=== PATIENT | female | born 1950 | race Caucasian/White ===

== ENCOUNTER → 2016-11-14 | Outpatient (CLI) | payer MEDICARE ==
--- NOTE | 2016-11-14 10:07 | REP ---
Chest two views HISTORY: COPD Comparison: 11/11/2014 Linear densities are present in the right lung apex consistent with scarring. The left lung is clear. The heart is normal in size. The pulmonary vasculature is normal in appearance. The bony structure is intact. IMPRESSION: Right upper lobe scarring. Signed by Terry Herrera MD 11/14/2016 09:58 A
== END ==
LOC: M SMT 09:43
PROVIDERS: ATTEND Internal Medicine Pulmonary Disease
DX: J44.9 Chronic obstructive pulmonary disease, unspecified (principal)

== ENCOUNTER → 2018-04-03 | Outpatient (CLI) | payer MEDICARE | LOC: M SMT 09:35 | DX: R91.8 Other nonspecific abnormal finding of lung field (principal) | CPT/HCPCS: 71046 ==

== ENCOUNTER → 2018-12-30 | Outpatient (CLI) | payer MEDICARE ==
--- NOTE | 2018-12-30 09:58 | REP ---
CT CHEST WITHOUT CONTRAST: HISTORY: Abnormal lung field findings. Findings raising suspicion for metastatic disease in the right lung base seen on CT abdomen and pelvis, [facility] dated October 25, 2018. Comparison is made with outside prior CT images from January 08, [address] FINDINGS: There is a small new right pleural effusion. Today's CT imaging confirms the presence of a multiple noncalcified pulmonary nodules. Many of these are pleural based posteriorly and along the fissures. There is pleural-based nodularity at the base on the diaphragmatic surface of the right lower lobe. These nodular opacities range in size up to 18 mm. There are scattered mediastinal lymph nodes visible. No definite mediastinal lymphadenopathy is seen. Some epicardial lymph nodes are seen. The largest of these is in the retro xyphoid soft tissues measuring 12 mm x 9 mm. No left-sided lung nodule is appreciated. There are emphysematous changes in the apices bilaterally with mild biapical pleuroparenchymal fibrosis. This pleuroparenchymal fibrosis is more prominent on the right than the left and is essentially unchanged from the 2012 study. No bony destructive lesion is seen. No adrenal lesion is seen. There are two low density areas in the liver which may be cysts. The visualized upper abdominal structures are otherwise unremarkable. IMPRESSION: Small right pleural effusion. Multiple predominately pleural-based pulmonary nodular densities in the right chest. Small right pleural effusion. Findings are suspicious for metastatic disease, mesothelioma would be in the differential as well. Electronically Signed by Evan Sanders MD 12/30/2018 11:36 A
== END ==
LOC: M RAD 07:19
PROVIDERS: ATTEND Internal Medicine Pulmonary Disease
DX: R91.8 Other nonspecific abnormal finding of lung field (principal); J90 Pleural effusion, not elsewhere classified

== ENCOUNTER → 2019-01-01 | Outpatient (CLI) | payer MEDICARE ==
[2019-01-01 14:56] LABS: INR 0.92; PARTIAL THROMBOPLASTIN TIME 27.5 SECONDS (25.4-37.6); PROTHROMBIN TIME 12.4 SECONDS (12.1-14.4)
[2019-01-03 12:30] LABS: CA 125 63.3 U/ML (<30.2); CA19-9 TUMOR MARKER,CARBOHYDRA 12.7 U/ML (<35.0)
== END ==
LOC: M SMT 11:52
PROVIDERS: ATTEND Internal Medicine Pulmonary Disease
DX: R91.8 Other nonspecific abnormal finding of lung field (principal)

== ENCOUNTER → 2019-01-10 | Outpatient (CLI) | payer MEDICARE ==
[~2019-01-10] MED LIST: ACET-683 PO; ALBU83IN PO; ATOR1TAB19 PO; INCR1INH PO; IRBE150T12 PO; IRON15CH PO; LIDOCAINE 1% MDV 20ML VIAL As Ordered ONE; OMEP-221 PO; PRED5TA PO; RALO1TAB PO; VENTAER PO
[2019-01-10 13:07] LABS: PH BODY FLUID 7.599 UNITS (NOT ESTABLISHED); SOURCE, BODY FLUID pH PLEURAL
[2019-01-10 13:33] LABS: APPEARANCE, BODY FLUID CLOUDY (CLEAR); PLEURAL FL COLOR YELLOW (COLORLESS); SOURCE, BODY FLUID PLEURAL
[2019-01-10 13:41] LABS: AMYLASE, BODY FLUID 41 U/L (NOT ESTABLISHED); LDH, BODY FLUID 374 U/L (NOT ESTABLISHED); SOURCE, BODY FLUID AMYLASE PLEURAL; SOURCE, BODY FLUID GLUCOSE PLEURAL; SOURCE, BODY FLUID LDH PLEURAL; SOURCE, BODY FLUID TOT PROTEIN PLEURAL; TOTAL PROTEIN, BODY FLUID 4.3 G/DL (NOT ESTABLISHED)
--- NOTE | 2019-01-10 16:33 | REP ---
CHEST, TWO VIEWS: Two views of the chest are performed. COMPARISON: CT 12/30/2018 as well as other prior exams. There is no pneumothorax, status post right thoracentesis and lung biopsy. Multiple nodular opacities are again seen throughout the right lung. Left lung appears clear. Heart is not enlarged. IMPRESSION: No pneumothorax, status post right thoracentesis and lung biopsy. Electronically Signed by Parish Hawthorne MD 01/11/2019 02:56 P
--- NOTE | 2019-01-11 15:00 | REP ---
CT-guided right lower lobe lung biopsy The procedure was performed under the direct supervision of Dr. hawthorne. The patient has a history of multiple predominately pleural-based pulmonary nodular densities in the right chest seen on a previous CT scan dated 12/30/2018. The risks and benefits of the procedure were explained to the patient and informed consent was obtained. A nodule in the right lower lobe was localized using CT guidance. The skin was prepped and draped in a sterile fashion. 1% lidocaine was used as a local anesthetic. Using CT guidance a 19/20 gauge coaxial needle biopsy system was inserted and advanced into the nodule. Five core biopsy samples were obtained and sent to lab. The patient tolerated the procedure well and there were no immediate complications. After the appropriate amount of monitored convalescence the patient was discharged from the department. Reviewed by KAYLEY De Luna 01/10/2019 04:35 P Electronically Signed by Parish Hawthorne MD 01/11/2019 02:50 P
--- NOTE | 2019-01-11 15:02 | REP ---
ULTRASOUND-GUIDED RIGHT THORACENTESIS The procedure was performed under the direct supervision of Dr. hawthorne. The risks and benefits of the procedure were explained to patient and informed consent was obtained. The right pleural effusion was localized using ultrasound guidance. The skin was prepped and draped in a sterile fashion. 1% lidocaine was used as a local anesthetic. Using ultrasound guidance an 8-Bhutanese multi side-hole catheter was inserted using trocar technique. 215 ml of yellow fluid was withdrawn and sent to lab for analysis. The patient tolerated the procedure well and there were no immediate complications. After the appropriate amount of monitored convalescence the patient was discharged from the department. Reviewed by KAYLEY De Luna 01/10/2019 04:43 P Electronically Signed by Parish Hawthorne MD 01/11/2019 02:51 P
== END ==
LOC: M RADPRO 10:52
PROVIDERS: ATTEND Internal Medicine Pulmonary Disease
DX: C34.91 Malignant neoplasm of unspecified part of right bronchus or lung (principal); J90 Pleural effusion, not elsewhere classified; R91.8 Other nonspecific abnormal finding of lung field

== ENCOUNTER → 2019-01-29 | Outpatient (CLI) | payer MEDICARE ==
[~2019-01-29] MED LIST changes: +FOLI1TAB11 PO; -LIDOCAINE 1% MDV 20ML VIAL As Ordered ONE; +ONDA8TAB8 PO; +PROC10TA4 PO
--- NOTE | 2019-01-30 13:53 | REP ---
REASON FOR EXAM: Lung carcinoma. No prior PET/CTs for comparison. Previous chest CT, 12/30/2018, was reviewed. After the intravenous administration of 9.2 mCi of FDG-18, triplane whole body PET/CT was performed from the skull base to the midthigh. There are numerable foci of abnormal hypermetabolism seen scattered throughout the right lung and along the mediastinal pleural reflection on the right. These are too numerous to count or individually assess and too widespread having SUV values ranging from 2.7 to 3.8. There is a right pleural effusion. There is no woodrow mediastinal or hilar adenopathy. There are no other abnormal hypermetabolic foci seen in the neck, chest, abdomen, or pelvis. IMPRESSION: Abnormal hypermetabolic activity throughout the right hemithorax including both lung parenchyma and particularly the pleural reflections as described above consistent with metastatic disease, possibly mesothelioma. Electronically Signed by Hi Newberry DO 01/30/2019 03:27 P
== END ==
LOC: M PLARAD 12:21
PROVIDERS: ATTEND Internal Medicine Pulmonary Disease
DX: R91.8 Other nonspecific abnormal finding of lung field (principal); C34.31 Malignant neoplasm of lower lobe, right bronchus or lung
CPT/HCPCS: 78815; A9552

== ENCOUNTER → 2019-02-14 | Outpatient (CLI) | payer MEDICARE ==
--- NOTE | 2019-02-14 10:41 | REP ---
MR BRAIN WITHOUT AND WITH CONTRAST: HISTORY: Lung carcinoma. CONTRAST: ProHance 10 mL. Areas of increased signal intensity on T2 weighted images are present in the periventricular and subcortical white matter. This represents small vessel ischemic disease. There is no intraparenchymal hemorrhage, infarct, mass or midline shift. There is no abnormal enhancement. The ventricular system and cortical sulci are dilated consistent with minimal volume loss. There is no extracerebral collection. The sinuses are clear. IMPRESSION: 1. Small vessel ischemic disease. 2. Minimal volume loss. Electronically Signed by Terry Herrera MD 02/14/2019 10:42 A
== END ==
LOC: M PLARAD 07:38
PROVIDERS: ATTEND Internal Medicine Medical Oncology
DX: I67.82 Cerebral ischemia (principal); C34.90 Malignant neoplasm of unspecified part of unspecified bronchus or lung

== ENCOUNTER 2019-03-01 09:59 | Inpatient (IN) | payer MEDICARE ==
[2019-03-01] VITALS (11 sets, daily range): BP systolic 94–148; BP diastolic 53–68
[~2019-03-01] VITALS: Ht 157.5 cm; Wt 51.2 kg
[~2019-03-01 09:59] MED LIST changes: +ALBU83IN INH; -ALBU83IN PO; +INCR1INH INH; -INCR1INH PO; +PANTOPRAZOLE 40MG TAB (PROTONIX) PO SCH; +TRIA1CR80 TOP; +VENTAER INH; -VENTAER PO
[2019-03-01] MEDS ORDERED: IPRATROPIUM 0.5MG/ALBUTEROL 2.5MG INH SOL UD 3ML (DUONEB)(J7620) NEB ONE (11:00)
[2019-03-01] MEDS ORDERED: ACETAMINOPHEN TAB 650MG DOSE (2X325MG) PO ONE (11:00)
[2019-03-01 11:18] LABS: HEMATOCRIT 32.7 % (36.0-47.0); HEMOGLOBIN 11.1 g/dl (12.0-15.5); MEAN CORPUSCULAR HEMOGLOBIN 28.5 pg (27.0-33.0); MEAN CORPUSCULAR HGB CONC 33.9 g/dl (32.0-36.5); MEAN CORPUSCULAR VOLUME 83.8 fl (80.0-96.0); PLATELET COUNT, AUTOMATED 400 10^3/uL (150-450); WHITE BLOOD COUNT 18.3 10^3/uL (4.0-10.0)
--- NOTE | 2019-03-01 11:36 | REP ---
PA and lateral chest: Comparison is 01/10/2019. There is a comparison chest CT of 12/30/2018. The patient has known multiple right lung nodules. There is a large right pleural effusion, significantly increased in size from both prior studies. Left lung is clear. Cardiac size is normal. There is fullness in the left hilus, increased from 01/10/2019, possibly a mediastinal mass/adenopathy. Impression: Large right pleural effusion as a distinct interval change. Fullness in the left hilus as an interval change. Known multiple right lung nodules. Electronically Signed by Parish Andujar MD 03/01/2019 11:28 A
[2019-03-01 11:51] LABS: ALBUMIN 2.7 GM/DL (3.2-5.2); ALT/SGPT 49 U/L (12-78); BILIRUBIN,DIRECT 0.2 MG/DL (0.0-0.2); BILIRUBIN,TOTAL 0.2 MG/DL (0.2-1.0); BLOOD UREA NITROGEN 8 MG/DL (7-18); CALCIUM LEVEL 8.2 MG/DL (8.8-10.2); CARBON DIOXIDE LEVEL 25 MEQ/L (21-32); CHLORIDE LEVEL 94 MEQ/L (98-107); CK-MB VALUE MASS 1.4 NG/ML (<3.6); CPK CREATINE PHOSPHOKINASE 59 U/L (26-192); GLOMERULAR FILTRATION RATE > 60.0 (>45); GLUCOSE, FASTING 105 MG/DL (70-100); MB/CK RELATIVE INDEX 2.37 (< OR =4); NT-PRO BNP 178 PG/ML (<125); SODIUM LEVEL 128 MEQ/L (136-145); THYROID STIMULATING HORMONE 0.208 uIU/ML (0.358-3.740); TOTAL PROTEIN 5.8 GM/DL (6.4-8.2)
[2019-03-01 11:54] LABS: EOSINOPHILS 10 % (0-5); LYMPHOCYTES 6 % (16-52); METAMYELOCYTES 2 % (0-0); MONOCYTES 6 % (0-8); NEUTROPHILS 67 % (35-75); PLATELET ESTIMATE INCREASED (NORMAL)
[2019-03-01 11:55] LABS: TOXIC GRANULATION 1+
[2019-03-01] MEDS ORDERED: ISOVUE-370 76% 100ML VIAL (Q9967) As Ordered ONE (12:52)
[2019-03-01] MEDS ORDERED: cefTRIAXone SOD 1 GM in D5W MINI-BAG PLUS 50 ML IV ONE (13:30)
[2019-03-01] MEDS ORDERED: AZITHROMYCIN INJ 500 MG, VIAL MATE ADAPTER 1 EACH in D5W 250 ML IV ONE (14:00)
[2019-03-01] MEDS ORDERED: ONDA8TAB8 PO (14:16)
[2019-03-01] MEDS ORDERED: BANO2CRE TOP (14:16)
[2019-03-01] MEDS ORDERED: TRIA1CR80 TOP (14:16)
[2019-03-01] MEDS ORDERED: PROC10TA4 PO (14:16)
[2019-03-01] MEDS ORDERED: [UNRECOGNIZED DRUG - CODE] IV (14:23)
[2019-03-01] MEDS ORDERED: CYAN1000VL IM (14:23)
[2019-03-01] MEDS ORDERED: PALO0.252 IV (14:23)
[2019-03-01] MEDS ORDERED: KEYT1INJ IV (14:23)
[2019-03-01] MEDS ORDERED: EMEN150S IV (14:23)
[2019-03-01] MEDS ORDERED: IRON65TA2 PO (14:23)
[2019-03-01] MEDS ORDERED: DEXA10VL IV (14:23)
[2019-03-01] MEDS ORDERED: PEG6SYR SC (14:23)
[2019-03-01] MEDS ORDERED: CARB450I12 IV (14:23)
[2019-03-01] MEDS ORDERED: FOLI1TAB11 PO (14:23)
[2019-03-01] MEDS ORDERED: ACETAMINOPHEN TAB 650MG DOSE (2X325MG) PO PRN (14:30)
[2019-03-01] MEDS ORDERED: PERCOCET 5MG/325MG TAB PO PRN (14:30)
[2019-03-01] MEDS ORDERED: VANCOMYCIN HCL 1,000 MG, VIAL MATE ADAPTER 1 EACH in D5W 250 ML IV ONE ×2 (14:30→16:00)
[2019-03-01] MEDS ORDERED: HEPARIN SOD (PORCINE) 5000 UNITS/ML VIAL SC SCH (14:30)
[2019-03-01] MEDS ORDERED: NORCO, ANEXSIA 5/325MG TABLET (HYDROcodone/ACETAMINOPHEN) PO PRN (14:30)
[2019-03-01] MEDS ORDERED: BISACODYL 10 MG SUPP PR PRN (14:30)
[2019-03-01] MEDS ORDERED: LEVALBUTEROL 1.25 MG/0.5 ML CONCENTRATE NEB NEB PRN (14:30)
[2019-03-01] MEDS ORDERED: KCL 20MEQ IN D5/NS 1000ML 1,000 ML IV SCH (15:00)
[2019-03-01 15:04] LABS: LDH LACTATE DEHYDROGENASE 291 U/L (84-246)
--- NOTE | 2019-03-01 15:06 | PHACANCOPD ---
PHARMACY VANCOMYCIN DOSING Pt Demographics Demographics Patient Age:68 , Weight:51.000 , Gender: female Adjusted Body Weight Date: 03/01/19, Adjusted Body Weight: Kg Events Past 24 Hours Events Past 24 Hours: YES: Fever, Elevation in WBC, Pending Diagnostics Vancomycin Vancomycin indication: PNEUMONIA Vancomycin Target Ranges: 15-20 mcg/ml Vancomycin Load Y/N: Yes Load Dose Date Time Vancomycin Load Dose: 1g Date: 03/01/19 Time:1600 Vancomycin Dose Date: 03/01/19. Current Vancomycin Dose: [750mg IV Q12H] Intermittent Dosing?: No Labs Labs Item Value Date Time White Blood Count 18.3 10^3/uL H 03/01/19 1053 Blood Urea Nitrogen 8 MG/DL 03/01/19 1053 Creatinine 0.50 MG/DL L 03/01/19 1053 Lactic Acid Level 1.0 MMOL/L 03/01/19 1040 Micro Microbiology 03/01/19 Blood Culture, Received Pending 03/01/19 Blood Culture, Received Pending Creatinine Clearance Date:03/01/19. Est Creatinine Clearance: [~50ml/min]. Pending Labs Vancomycin trough level scheduled to be drawn 03/02/19 @1500 - prior to the 3rd dose Assessment and Plan Maintaining Current Dose?: Yes Reason for dose change: No Dose Change Pharmacist Note Pharmacist Note Date: 03/01/19. Pharmacist note: Day #1 empiric vancomycin therapy initiated with a 1g loading dose, followed by a maintenance regimen of 750mg IV Q12H for the treatment of pneumonia - aiming for a goal trough of 15-20mcg/ml. The patient has a PMH of lung cancer and COPD, and started chemotherapy last week. WBC is elevated and the patient is febrile on admit. Blood culture and sputum cultures are currently pending. Procalcitonin level is currently pending. No hx of MRSA or vanco use here at [facility]. Full H&P is not available at this time. A vancomycin trough level has been scheduled to be drawn tomorrow, 03/02/19, at 1500 - prior to the 3rd dose to ensure adequate monitoring. We will continue to monitor and make dose adjustments if needed. OSMAR PERDUE PHARMACY Mar 01, 2019 15:05
[2019-03-01] MEDS ORDERED: FLUMAZENIL 0.5 MG/5 ML VIAL As Ordered ONE (15:21)
[2019-03-01] MEDS ORDERED: MIDAZOLAM INJ 2 MG/2 ML VIAL (J2250) As Ordered ONE (15:22)
[2019-03-01] MEDS ORDERED: LIDOCAINE 1% MDV 20ML VIAL As Ordered ONE (15:24)
[2019-03-01] MEDS ORDERED: PROCHLORPERAZINE 5 MG TAB (S0183) PO PRN (15:30)
[2019-03-01] MEDS ORDERED: ALBUTEROL 90 MCG/ACT 8GM HFA INHALER INH PRN (15:30)
[2019-03-01] MEDS ORDERED: ALBUTEROL SULFATE 2.5 MG/0.5 ML INH NEB SOLN INH PRN (15:30)
[2019-03-01] MEDS ORDERED: TRIAMCINOLONE ACET 0.1% CREAM 80 GM TOP PRN (15:30)
[2019-03-01] MEDS: ONDANSETRON 4MG/2ML VIAL (J2405) IV PRN ×2 (15:38→20:46)
[2019-03-01] MEDS ORDERED: LIDOCAINE 1% MDV 20ML VIAL SC ONE (16:00)
[2019-03-01] MEDS ORDERED: MIDAZOLAM INJ 2 MG/2 ML VIAL (J2250) IV ONE ×2 (16:00)
--- NOTE | 2019-03-01 16:08 | HPEPDOC ---
General Date of Admission Mar 01, 2019 at 14:18 Date of Service: Mar 01, 2019 Primary Care Physician: Basia Kelly Attending Physician: ALVINO PENA DO Chief Complaint The patient is a 68-year-old female admitted with a reason for visit of Pleural Effusion. Source: Patient, Family, Old records Exam Limitations: No limitations Associated Symptoms: Cough, Loss of appetite, Nausea, Shortness of breath History of Present Illness Ms. Arias is a 68-year-old female who presents to [facility] Emergency Department with worsening shortness of breath. Patient is accompanied by her daughter and granddaughter. Patient states that for the past few days she has been developing worsening shortness of breath to the point that she is unable to walk from her bedroom to the bathroom without becoming exquisitely short of breath. She would use her inhalers at home, but without much relief in the shortness of breath. She states that she could not even walk 4 steps without becoming short of breath. She does not wear oxygen at home. She is coughing, but only produces very minimal clear sputum. There is no blood in her sputum. Patient reports increasing the number of pillows she sleeps on from 2 to 3 and last evening did find that she was gasping for air. She denies any lower extremity swelling. She is nauseated, but is not vomiting or having abdominal pain. She is not vomiting up blood. She has no appetite, but does not recall having difficulty swallowing or getting things stuck in her throat or chest. Over the last week she thinks she has lost about 5-6 pounds. She does not recall feeling feverish at home and admits to not checking her temperature. Admits to alternating chills and night sweats. Patient did attend an awards ceremony on Sunday and has a graduation celebration on Sunday that she would like to attend, if possible. Patient does admit to a diffuse pruritic rash for which she was prescribed a topical steroids and OTC Benadryl. However, she has only used the topical steroid once as she was told to use it sparingly and did not feel like it helped much. Emergency Department evaluation reveals an initial temperature of 101. Hematological evaluation reveals a neutrophilic leukocytosis of 18.3 with 9 bands. Chemistry reveals a low sodium of 128 and an unremarkable NT-pro-BNP of 178. Blood cultures are pending. Imaging included a chest x-ray and CT chest angiogram. A large right sided pleural effusion as well as a small PE were noted. 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 Patient is currently being treated with Carboplatin/Pemetrexed/Pembrolizumab which started on 02/18/2019. She was started on topical Triamcinolone 0.1% twice daily, OTC Benadryl, and Tylenol or Aleve PM for pain control. Hospitalist service was consulted and patient was admitted for further medical management. Home Medications Scheduled Atorvastatin Calcium (Atorvastatin Calcium) 10 Mg Tablet, 10 MG PO DAILY, (Reported) Carboplatin (Carboplatin) 10 Mg/1 Ml Vial, 450 MG IV Q2WK, (Reported) Cyanocobalamin (Cyanocobalamin Injection) 1,000 Mcg/1 Ml Vial, 1,000 MCG IM ASDIRECTED, (Reported) EVERY 3RD CYCLE OF CHEMO Dexamethasone (Dexamethasone 10 mg/ml Vial) 10 Mg/1 Ml Vial, 10 MG IV Q2WK, (Reported) Ferrous Sulfate (Iron) 325 Mg Tablet, 325 MG PO DAILY, (Reported) Folic Acid (Folic Acid) 1 Mg Tablet, 1 MG PO DAILY, (Reported) Fosaprepitant (Emend) 150 Mg Vial, 150 MG IV Q2WK, (Reported) Irbesartan (Irbesartan) 150 Mg Tablet, 75 MG PO BID, (Reported) Omeprazole (Omeprazole) 40 Mg Capsule.dr, 40 MG PO DAILY, (Reported) Palonosetron HCl (Palonosetron HCl) 0.25 Mg/5 Ml Vial, 0.25 MG IV Q2WK, (Reported) Pegfilgastrim (Neulasta) 6 Mg/0.6 Ml Syringe, 6 MG SC ASDIRECTED, (Reported) APPLY ON DAY ONE OF CHEMO Pembrolizumab (Keytruda) 100 Mg/4 Ml Vial, 200 MG IV Q2WK, (Reported) Pemetrexed Disodium (Alimta) 500 Mg Vial, 750 MG IV Q2WK, (Reported) Prednisone (Prednisone) 5 Mg Tablet, 2.5 MG PO Q3RD, (Reported) Raloxifene HCl (Raloxifene HCl) 60 Mg Tablet, 60 MG PO DAILY, (Reported) Triamcinolone Acet (Triamcinolone Acetonide 0.1% Crm) 80 Gm Cream..g., 1 APLCT TOP BID for rash Umeclidinium Elba (Incruse Ellipta) 62.5 Mcg Blst.w.dev, 1 PUFF INH DAILY, (Reported) Scheduled PRN Acetaminophen (Acetaminophen) 500 Mg Tablet, 1,000 MG PO Q6H PRN for PAIN, (Reported) Albuterol Sulf (Albuterol Sulfate) 2.5 Mg/3 Ml Vial.neb, 1 NEB INH QID PRN for SHORTNESS OF BREATH, (Reported) Albuterol Sulfate (Ventolin Hfa) 18 Gm Hfa.aer.ad, 2 PUFFS INH QID PRN for SHORTNESS OF BREATH, (Reported) Diphenhydramine HCl/Zinc Acet (Banophen Anti-Itch 2% Cream) 28 Gm Cream..g., 1 APLCT TOP BID PRN for RASH, (Reported) APPLY TO AREAS OF RASH Ondansetron (Ondansetron Odt) 8 Mg Tab.rapdis, 8 MG PO Q6H PRN for NAUSEA, (Reported) Prochlorperazine Maleate (Prochlorperazine Maleate) 10 Mg Tablet, 10 MG PO Q6H PRN for NAUSEA OR VOMITING, (Reported) Triamcinolone Acet (Triamcinolone Acetonide 0.1% Crm) 80 Gm Cream..g., 1 APLCT TOP BID PRN for RASH, (Reported) APPLY TO AREAS OF RASH Allergies Coded Allergies: albuterol (Verified Adverse Reaction, Mild, nausea, 03/01/19) Past Medical History Medical History 1. Stage IV A, [id number], poorly differentiated adenocarcinoma of the lung 2. History of tobacco dependence 3. DLP 4. HTN 5. GERD 6. COPD Surgical History 1. Colonoscopy 2. EGD 3. CT-guided right lower lobe lung biopsy 4. Ultrasound-guided right thoracentesis Family History Father: , 70s, stroke Mother: , 72-3, COPD, leukemia Siblings - Sisters: x2, alive, 70s, healthy - Brother: x1, , 57, lung cancer Social History * Smoker: former Smoker (45.5 pack year history, quit last year) Alcohol: Denies Drugs: denies Pets in the home: Dog(s) (Libby x2, Nika and Romeo) Lives independently and does not use assist devices. for 16 years. Ma rried for 32 years. of a massive heart attack. Two adult children - one daughter and one son - both alive and healthy. 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 No alcohol or illicit drug use. Used to smoke. Started at age 20 and quit last year. Smoked about 1.5 packs per day. A-FIB/CHADSVASC A-FIB History Current/History of A-Fib/PAF?: No Review of Systems Constitutional: Reports: Chills, Night Sweats; Denies: Fever, Weakness Eyes: Denies: Vision change ENT: Denies: Head Aches, Dysphagia, Sinus Congestion, Post Nasal Drip, Sore Throat, Epistaxis Skin: Reports: Rash (diffuse, pruritic); Denies: Lesions Pulmonary: Reports: Dyspnea (with minimal exertion), Cough (minimal with clear sputum production); Denies: Pleuritic Chest Pain Cardiovascular: Reports: Paroxysmal Noc. Dyspnea; Denies: Chest Pain, Palpitations, Orthopnea, Edema, Lt Headedness Gastrointestinal: Reports: Nausea, Constipation; Denies: Vomiting, Abdominal Pain, Diarrhea, Melena, Hematochezia Genitourinary: Denies: Dysuria, Frequency, Incontinence, Hematuria, Retention Hematologic: Denies: Bruising Musculoskeletal: Denies: Neck Pain, Back Pain, Joint Pain, Muscle Pain Neurological: Denies: Weakness, Numbness Physical Examination General Exam: Positive: Alert, Cooperative, No Acute Distress Eye Exam: Positive: PERRLA, Conjunctiva & lids normal, EOMI; Negative: Sclera icteric, Ptosis ENT Exam: Positive: Atraumatic, Mucous membr. moist/pink, Pharynx Normal, Tongue Midline, Nares Patent; Negative: Pharyngeal Edema Neck Exam: Positive: Supple, +2 carotid pulse wo bruit; Negative: JVD, thyromegaly, Lymphadenopathy Chest Exam: Positive: Diminished, Other (clear to auscultation in the upper lobes bilaterally, diminished breath sounds in the right lower lobe with E-to-A egophony); Negative: Clear to auscultation, Normal air movement Heart Exam: Positive: Rate Normal, Tachycardic, Regular Rhythm, Normal S1, Normal S2; Negative: Irregular Rhythm, Gallops, Murmurs, Rubs Telemetry: Positive: Tachycardia Abdomen Exam: Positive: BS Hypoactive, Soft; Negative: Tenderness, Hepatospenomegaly, Mass, Hernia Extremity Exam: Negative: Clubbing, Cyanosis, Edema, Normal pulses (tachycardic), Tenderness, Swelling Skin Exam: Positive: Rash (maculopapular, confluent extending along back, upper chest, and arms) Neuro Exam: Positive: Normal Speech, Cranial Nerves 3-12 NL Psych Exam: Positive: Oriented x 3 Other physical findings 1. Chest x-ray, 2 view, PA and lateral - Large right pleural effusion as a distinct interval change. Fullness in the left hilus as an interval change. Known multiple right lung nodules. 2. CT chest angiogram Vital Signs Vital Signs Date Time Temp Pulse Resp B/P (MAP) Pulse Ox O2 Delivery O2 Flow Rate FiO2 03/01/19 13:45 114 118/62 (80) 94 03/01/19 10:56 99.6 03/01/19 09:59 28 Room Air Height (in): 62 Weight (kg): 51 BMI (kg): 20.6 Laboratory Data Labs 24H Laboratory Tests 2 03/01/19 10:40: Lactic Acid Level 1.0 03/01/19 10:53: Immature Granulocyte % (Auto) , Nucleated Red Blood Cells % (auto) 0.0, Neutrophils 67, Band Neutrophils 9, Lymphocytes (Manual) 6L, Monocytes (Manual) 6, Eosinophils (Manual) 10H, Metamyelocytes 2H, Toxic Granulation 1+, Platelet Estimate INCREASED, Anion Gap 9, Glomerular Filtration Rate > 60.0, Calcium Level 8.2L, Aspartate Amino Transf (AST/SGOT) 37, Alanine Aminotransferase (ALT/SGPT) 49, Alkaline Phosphatase 89, Total Bilirubin 0.2, Direct Bilirubin 0.2, Total Creatine Kinase 59, Creatine Kinase MB 1.4, Creatine Kinase MB Relative Index 2.37, Troponin I 0.10, PT-Rtx-E-Type Natriuretic Peptide 178H, Total Protein 5.8L, Albumin 2.7L, Albumin/Globulin Ratio 0.87L, Thyroid Stimulating Hormone (TSH) 0.208L CBC/BMP Laboratory Tests 03/01/19 10:53 Red Blood Count 3.90 L, Mean Corpuscular Volume 83.8, Mean Corpuscular Hemoglobin 28.5, Mean Corpuscular Hemoglobin Concent 33.9, Red Cell Distribution Width 13.1 Microbiology Microbiology 03/01/19 Blood Culture, Received Pending 03/01/19 Blood Culture, Received Pending Plan / VTE VTE Prophylaxis Ordered?: Yes (knee-high sequential compression) Plan Plan 1. Sepsis 2/2 post-obstructive pneumonia 2/2 stage IV A, H9HfS3h, poorly differentiated adenocarcinoma of the lung Fever 101, WBC 18.3, tachycardic 114 Started Cefepime and Vancomycin (pharmacy consult) Tylenol as needed for fever Ordered procalcitonin, blood cultures, MRSA screen, sputum culture and gram stain Monitor VS and labs 2. Right sided pleural effusion likely 2/2 aforementioned Thoracic surgery consulted Pleural fluid analysis ordered Chest tube ordered ABG at 15:24 --> unremarkable CXRs, ABGs, IS, oxygen therapy orders, PEP ordered Ketorolac and Percocet as needed for pain Telemetry ordered KCl 20mEq in D5/NS @ 75 mLs/hr NPO 3. Pulmonary embolism with subclavian thrombus Carotid ultrasound ordered Holding off on anticoagulation until thoracic surgery evaluates patient Consider either therapeutic Lovenox with transition to Eliquis and just Eliquis for treatment 4. Neutrophilic leukocytosis with bandemia 2/2 aforementioned Antibiotic therapy with IV Cefepime and Vancomycin Monitor labs daily 5. Fever 2/2 aforementioned Tylenol as needed Monitor VS as standard of care 6. Eosinophilia 2/2 chemotherapy resulting in cutaneous rash C/W topical Triamcinolone, topical Benadryl 7. Chemotherapeutic hyponatremia Monitor 8. Chemotherapeutic nausea C/W Prochlorperazine, Ondansetron 9. COPD C/W Albuterol inhaler, Xopenex nebulizer 10. GERD C/W Omeprazole 11. Constipation C/W Colace, MoM, Dulcolax 12. DLP C/W Atorvastatin Disposition Admit: PCU Anticipated hospitalization: 2 nights Attending: Dr. Pena Plan Nurse: Thoracic surgery, Dr. Alan Diet: Make NPO Activity: Continue Current (OOB encourage ambulation) Medications: Start Antibiotics (Vancomycin and Cefepime) Respiratory: Other Respiratory Diagnostics: Check Labs, Repeat Labs in AM, Obtain Cultures (blood, MRSA screen), Ultrasound (carotid) Anticipated Discharge: Home Advanced Directives: MOLST Form is available, Do Not Resuscitate (DNR), Do Not Intubate (DNI) BRISA RAMON DO Mar 01, 2019 14:52
--- NOTE | 2019-03-01 16:25 | REP ---
CT of the chest with IV contrast, CT pulmonary angiography protocol: Comparison is 12/30/2018. There are no emboli in the pulmonary trunk or central pulmonary arteries. I suspect there is a single tiny embolus to a left upper lobe pulmonary artery. No other pulmonary emboli are identified. There is a large right pleural effusion has significantly increased in size. There is compression atelectasis of the left right adjacent to t the large pleural effusion. There are multiple pleural-based lung nodules on the right as previously. Many of these nodules are obscured on the current study by the right pleural effusion and right lung atelectasis. Left lung is clear. There is right hilar lymph node enlargement. There are right paraspinal pleural-based lung nodules extending into the posterior mediastinum. There are right paramediastinal lung nodules extending into the mid and anterior mediastinum. Intravenous injection is into the left upper extremity. There is reflux of the venous injection into the left jugular vein above the innominate vein. The refluxed contrast hugs the wall of the left jugular vein and is not seen centrally within the lumen of this vein. This may merely represent vascular flow of blood flow phenomenon centrally within this vein, however, the possibility of left jugular venous thrombus is also raised by this finding. Correlate clinically and consider ultrasound for further evaluation. Impression: Tiny embolus within a single left upper lobe pulmonary artery. Question of a left jugular venous thrombus as discussed in the report. Correlate clinically and consider ultrasound. Known multiple right hemithorax pleural-based lung nodules. Large right pleural effusion, significantly increased in size. Compression atelectasis of the left lung from the large effusion. Electronically Signed by Parish Andujar MD 03/01/2019 04:16 P
[2019-03-01] MEDS: KETOROLAC 30 MG/ML VIAL (J1885) IV SCH ×2 (17:25→20:46)
[2019-03-01 17:46] LABS: PH BODY FLUID 7.633 UNITS (NOT ESTABLISHED); SOURCE, BODY FLUID pH PLEURAL
[2019-03-01] MEDS: MOM 30ML SUSPENSION UDC PO SCH (18:03)
[2019-03-01] MEDS: OMEPRAZOLE 20 MG CAP PO SCH (18:03)
[2019-03-01] MEDS: FOLIC ACID 1 MG TAB PO SCH (18:04)
[2019-03-01] MEDS: FERROUS SULFATE 325MG TAB PO SCH (18:04)
[2019-03-01] MEDS: ATORVASTATIN 10 MG TAB PO SCH (18:04)
[2019-03-01] MEDS: diphenhydrAMINE CREAM 30GM TOP PRN ×2 (18:05→20:49)
[2019-03-01 18:08] LABS: AMYLASE, BODY FLUID 27 U/L (NOT ESTABLISHED); CHOLESTEROL, BODY FLUID 73 MG/DL (NOT ESTABLISHED); LDH, BODY FLUID 275 U/L (NOT ESTABLISHED); SOURCE, BODY FLUID AMYLASE PLEURAL; SOURCE, BODY FLUID CHOL PLEURAL; SOURCE, BODY FLUID GLUCOSE PLEURAL; SOURCE, BODY FLUID LDH PLEURAL; SOURCE, BODY FLUID TRIG PLEURAL; TRIGLYCERIDE, BODY FLUID 35 MG/DL (NOT ESTABLISHED)
[2019-03-01 18:14] LABS: SOURCE, BODY FLUID ALBUMIN PLEURAL
[2019-03-01 18:15] LABS: SOURCE, BODY FLUID TOT PROTEIN PLEURAL; TOTAL PROTEIN, BODY FLUID 4.1 G/DL (NOT ESTABLISHED)
[2019-03-01 18:25] LABS: APPEARANCE, BODY FLUID HAZY (CLEAR); PLEURAL FL COLOR YELLOW (COLORLESS); SOURCE, BODY FLUID PLEURAL
--- NOTE | 2019-03-01 19:14 | CR ---
DATE OF CONSULTATION: 03/01/2019 The patient is seen at the request of the hospitalist service for shortness of breath and now increased pleural effusion. 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 The patient's most recent story starts approximately 3 or 4 days ago when she started to experience increasing shortness of breath. The shortness of breath progressed such that she could not even get out of bed to go to the bathroom without being extremely short of breath. Last night she could not sleep and slept with her head propped up on pillows. She did not seek medical attention until this morning as her breathing was so bad last night and that she had put down her shortness of breath to chemotherapy side effect. She underwent her first infusion on 02/18/2019 consisting of carboplatin, pemetrexed and pembrolizumab. She developed a skin dermatitis, which was thought to be secondary to the chemotherapy and was put on topical steroids. Accompanying the shortness of breath is now cough without any sputum production. Over the last few days, she has felt both hot and cold and has broken out in sweats. She has not brought up sputum nor has she had any hemoptysis. She has a sharp pain in her right side but it is not exacerbated by deep breathing. The sharp pain does come and go and it has been like that for about a year, it is not new. She has no dysphagia and does not choke on her food. PAST MEDICAL HISTORY: 1. Hypertension. 2. Gastroesophageal reflux disease (GERD). 3. Chronic obstructive pulmonary disease (COPD). PAST SURGICAL HISTORY: 1. Tonsillectomy at the age of 16. MEDICATIONS: At home: - atorvastatin 10 mg daily - dexamethasone 10 mg IV every 2 weeks - ferrous sulfate 325 mg daily - folic acid 1 mg daily - Emend 150 mg every 2 weeks - irbesartan 75 mg twice a day - omeprazole 40 mg daily - Neulasta 6 mg on her first day of chemotherapy on 02/18/2019 - Keytruda 200 mg IV every 2 weeks - pemetrexed 750 mg IV every 2 weeks - prednisone 2.5 mg every 3 days - Relaxazone 60 mg daily - triamcinolone acetate cream twice a day for rash - Incruse Ellipta 62.5 mg one puff daily - carboplatin 450 mg IV every 2 weeks ALLERGIES: She states that she has a bad taste in her mouth from albuterol with mild nausea. FAMILY HISTORY: Father at 70 of a stroke. Mother at 72 of COPD and leukemia. Brother at 57 of lung cancer. HABITS: Smoked one to one and a half packs per day, quit last year. Denies alcohol. Denies illicit drugs. EXPOSURES: She has two dogs that she helps take care of during the day for her daughter, two Libbys. TRAVEL HISTORY: None to the critical access hospital or [facility], although she did go on a cruise in the [place] 10 years ago and stopped at all the ports. REVIEW OF SYSTEMS: CONSTITUTIONAL: See history of present illness. EYES: Without diplopia. Without amaurosis fugax. Wears glasses. Without prior jaundice. NOSE: Without epistaxis. MOUTH: Has her own teeth. PULMONARY: See history of present illness. CARDIAC: Without palpitations, tachycardia or prior myocardial infarction. GASTROINTESTINAL: Without nausea and some vomiting after chemotherapy. Without melena, hematochezia, diarrhea, constipation, hematemesis or abdominal pain GENITOURINARY: Without dysuria or hematuria or prior history of renal stones. HEMATOLOGIC: Without prolonged bleeding times. ENDOCRINE: Without diabetes. Without thyroid disease. PSYCHIATRIC: Without pathological anxieties, depressions, or psychoses. NEUROLOGIC: Without paresthesias, paralyses or prior seizures. PHYSICAL EXAMINATION: Well developed, chronically ill looking, white female in moderate distress with shortness of breath. VITAL SIGNS: Temperature 98.7, heart rate 109 in a sinus rhythm, respiratory rate of 26 without the use of accessory muscles. She is 96% saturated on 2 liters nasal cannula and her blood pressure is 120/59. EYES: Pupils are equal, round and reactive to light. Extraocular muscles intact. Sclerae nonicteric. HEAD: Head is normocephalic. Without swelling of her face or eyelids. NOSE: Without deformity. MOUTH: Shows mucous membranes to be pink and moist. Lips without lesions. There is no thrush. She does look to have an ecchymosis or submucosal hemorrhage in the palpate. NECK: Supple. There is no jugular venous distention (JVD). No subcutaneous emphysema. Trachea is midline. There is no thyromegaly or lymphadenopathy. LUNGS: Markedly decreased breath sounds in the right lower hemithorax with a dull percussion note in the right lower hemithorax. After the chest tube was placed, she has very coarse rhonchi on inspiration and expiration on the right side. She has normal vesicular sounds without wheezes, rhonchi or rales. Percussion note is full to the diaphragm on the left. CARDIAC: Without murmurs, clicks, gallops or rubs. I cannot feel her point of maximum impulse (PMI). S1, S2 normal. ABDOMEN: Soft, nontender. Bowel sounds positive. There is no hepatomegaly. No costovertebral angle tenderness. EXTREMITIES: Show no pretibial edema. No calf tenderness. No differential swelling of the upper extremities. SKIN: Warm, dry and perfused without cyanosis or mottling, including that of the nail beds and knees. NEUROLOGIC: Shows II through XII intact with gross motor and gross sensation intact. Gait is not tested. PSYCHIATRIC: Shows her to be awake and alert, oriented times three with appropriate mood and affect and conversational. INVESTIGATIONS: Her white count is 18.3 with a hemoglobin and hematocrit of 11.1 and 32.7 and a platelet count of 400. The white count may be secondary to Neulasta. Differential shows 67% neutrophils, 9% bands, 66% lymphocytes, 6% monocytes, and 10 eosinophils. There are 2 metamyelocytes and 1+ toxic granulations. Her electrolytes show a sodium of 128 with a BUN and creatinine of 8 and 0.50 with a glucose of 105 and a calcium of 8.2. AST and ALT are normal. Albumin is 2.7 with a corresponding calcium of 8.2. Her TSH is 0.2. Her lactic acid is 1.0. Her chest x-ray shows a large opacity consistent with a pleural effusion on the left side. This can be seen one-third to half way up the chest on the lateral film. Her chest CT confirms the pleural effusion. She has multiple nodules throughout her lungs, predominantly on the right. She also has what looks to be pleural implants of the upper portion of the hemithorax. I cannot differentiate pleural studs where her pleural effusion is. She has compression atelectasis of her lower lobe, which may also be partial consolidation. CT is done under angiographic protocol and she has what looks to be a small left upper lobe pulmonary thrombus. Most significantly however, on the coronal reconstructions, she has in the internal carotid vein on the left side. There looks to be refilling at the proximal portion of the internal jugular vein and I think that this really does represent thrombus. Her liver looks to be free of disease. Her left adrenal is of normal configuration, as is her right adrenal. IMPRESSION: 1. Right sided pleural effusion, possible recurrent malignant or parapneumonic. 2. Possible left lower lobe pneumonia. 3. Stage IV lung cancer, metastatic to the pleural fluid. 4. Hypertension. 5. Hyponatremia. 6. Pulmonary embolism. 7. Left internal carotid thrombus. 8. Possible sepsis with leukocytosis with immature forms and toxic granulations. 9. Eosinophilia with subcutaneous rash. 10. Chronic obstructive pulmonary disease (COPD). 11. Gastroesophageal reflux disease (GERD). PLAN AND DISCUSSION: I am really on the fence with regard to whether to place a chest tube and drain her or to place a PleurX catheter. She has fever and leukocytosis with toxic granulations. The leukocytosis could be secondary to her Neulasta, toxic granulations are suspect. She does not have strong symptoms of pneumonia or the parapneumonic effusion. Nonetheless, is probable best to err on the side of conservatism and drain her initially and observe her and if and when the effusion returns, place a PleurX catheter. Specimens will be sent for all the requisite studies of cytologies, bacteriologies, cell counts and chemistries. Her hyponatremia is probably secondary to her carcinoma. She is at high risk for thromboembolism, which she certainly has in her left upper lobe pulmonary artery. After chest tube, I would go ahead and anticoagulate her. I have no objection to using Eliquis.
[2019-03-01] MEDS: CEFEPIME HCL 2 GM in D5W MINI-BAG PLUS 50 ML IV SCH (20:46)
[2019-03-01] MEDS: IRBESARTAN 150 MG TAB PO SCH (20:46)
[2019-03-01] MEDS: DOCUSATE SODIUM 100 MG CAP PO SCH (20:47)
[2019-03-01] MEDS: APIXABAN 5 MG TAB (ELIQUIS) PO SCH (20:47)
[2019-03-01] MEDS: PERCOCET 5MG/325MG TAB PO PRN (20:49)
[2019-03-01] MEDS: TRIAMCINOLONE ACET 0.1% CREAM 80 GM TOP SCH (20:50)
[2019-03-01] MEDS: LEVALBUTEROL 1.25 MG/0.5 ML CONCENTRATE NEB NEB SCH (21:03)
[2019-03-02] VITALS (7 sets, daily range): BP systolic 91–122; BP diastolic 51–67
[2019-03-02] MEDS: LEVALBUTEROL 1.25 MG/0.5 ML CONCENTRATE NEB NEB SCH ×4 (01:59→20:26)
[2019-03-02] MEDS: PERCOCET 5MG/325MG TAB PO PRN ×2 (02:05→05:43)
[2019-03-02] MEDS: KETOROLAC 30 MG/ML VIAL (J1885) IV SCH ×2 (02:05→10:04)
[2019-03-02] MEDS: ONDANSETRON 4MG/2ML VIAL (J2405) IV PRN ×4 (02:05→13:32)
[2019-03-02] MEDS: CEFEPIME HCL 2 GM in D5W MINI-BAG PLUS 50 ML IV SCH ×3 (03:29→20:09)
[2019-03-02] MEDS: VANCOMYCIN HCL 750 MG, VIAL MATE ADAPTER 1 EACH in D5W 250 ML IV SCH ×2 (04:01→16:02)
[2019-03-02 05:50] LABS: HEMATOCRIT 31.8 % (36.0-47.0); HEMOGLOBIN 10.5 g/dl (12.0-15.5); MEAN CORPUSCULAR HEMOGLOBIN 28.1 pg (27.0-33.0); PLATELET COUNT, AUTOMATED 374 10^3/uL (150-450); RED BLOOD COUNT 3.74 10^6/uL (4.00-5.40); WHITE BLOOD COUNT 17.5 10^3/uL (4.0-10.0)
[2019-03-02 05:56] LABS: ABG BASE EXCESS -2.1 (-2.0-2.0); ABG HCO3 22.8 MEQ/L (22.0-26.0); ABG O2 SATURATION 94.2 % (95.0-99.0); ABG PARTIAL PRESSURE CO2 39.4 mmHg (35.0-45.0); ABG PARTIAL PRESSURE O2 69.9 mmHg (75.0-100.0); ABG STANDARD HCO3 22.7 MEQ/L (22.0-26.0)
[2019-03-02 06:18] LABS: BLOOD UREA NITROGEN 14 MG/DL (7-18); CALCIUM LEVEL 7.6 MG/DL (8.8-10.2); CARBON DIOXIDE LEVEL 25 MEQ/L (21-32); CHLORIDE LEVEL 95 MEQ/L (98-107); CREATININE FOR GFR 0.95 MG/DL (0.55-1.30); GLOMERULAR FILTRATION RATE > 60.0 (>45); GLUCOSE, FASTING 153 MG/DL (70-100); POTASSIUM SERUM 3.7 MEQ/L (3.5-5.1); SODIUM LEVEL 128 MEQ/L (136-145)
[2019-03-02 06:22] LABS: ANISOCYTOSIS 2+; EOSINOPHILS 9 % (0-5); LYMPHOCYTES 6 % (16-52); MONOCYTES 4 % (0-8); NEUTROPHILS 81 % (35-75); PLATELET ESTIMATE NORMAL (NORMAL)
--- NOTE | 2019-03-02 06:56 | ECGEPIP ---
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
[2019-03-02] MEDS: TIOTROPIUM INHALER/CAPSULE (SPIRIVA) INH SCH (07:21)
--- NOTE | 2019-03-02 07:39 | REP ---
The portable chest, 05:01 p.m., single AP view with the patient upright, post right chest tube: Comparison is from 10:42 a.m. earlier this same date. There is a right thoracotomy tube as an interval change. The right pleural effusion has significantly decreased with only a tiny residual persisting. There is no pneumothorax. The the patient has known multiple right lung nodules. Left lung is clear. Left hilar fullness is again identified. However, on the chest CT dated 03/01/2019. No left hilar mass or adenopathy are identified. Impression: Significant reduction in the right pleural effusion post right thoracotomy tube. No pneumothorax. Electronically Signed by Parish Andujar MD 03/02/2019 07:31 A
--- NOTE | 2019-03-02 07:51 | REP ---
Bilateral carotid artery duplex ultrasound: Peak flow velocity analysis: RIGHT LEFT ICA Peak flow velocity cm/sec 110.3 184.1 ICA Diastolic flow velocity cm/sec 31.8 35.0 ICA/CCA Ratio 1.06 1.79 ECA Peak flow velocity cm/sec 57.7 60.7 CCA Peak flow velocity cm/sec 114 102.9 On the right. There is mild atheromatous plaque extending from the bulb into the proximal internal carotid artery and proximal external carotid artery. On the left. There is moderate atheromatous plaque in the distal common carotid artery and in the proximal left internal carotid artery. The peak flow velocities indicate: Less than 50% stenosis in the right carotid artery. 50 - 69% stenosis in the left internal carotid artery. There is antegrade flow in the vertebral arteries bilaterally. Electronically Signed by Parish Andujar MD 03/02/2019 07:42 A
--- NOTE | 2019-03-02 08:37 | REP ---
PA and lateral chest: Comparison is 03/01/2019. The right thoracotomy tube is unchanged. There is no pneumothorax. The large right pleural effusion has significantly decreased with only a tiny residual effacing the right costophrenic angle. The patient has known multiple right lung nodules. However, I suspect there is superimposed atelectasis inferiorly in the right lung on the study today. This is likely secondary to the previous effusion. Left lung is clear. Cardiac size normal. The alcira, mediastinum, skeletal structures are unchanged for Impression: Right thoracotomy tube unchanged. Right pleural effusion as described. Probable atelectasis inferiorly in the right lung. Known multiple right lung nodules. Electronically Signed by Parish Andujar MD 03/02/2019 08:27 A
[2019-03-02] MEDS: IRBESARTAN 150 MG TAB PO SCH ×2 (09:00→20:10)
[2019-03-02] MEDS ORDERED: PREVNAR 13 VACCINE SYRINGE (CPT CODE:90670) IM ONE (09:00)
[2019-03-02] MEDS: TRIAMCINOLONE ACET 0.1% CREAM 80 GM TOP SCH ×2 (09:00→20:09)
[2019-03-02] MEDS: APIXABAN 5 MG TAB (ELIQUIS) PO SCH ×2 (10:05→20:10)
[2019-03-02] MEDS: DOCUSATE SODIUM 100 MG CAP PO SCH ×2 (10:05→20:10)
[2019-03-02] MEDS: METOCLOPRAMIDE INJ 10MG/2ML VIAL (J2765) IV SCH ×3 (11:51→23:05)
[2019-03-02] MEDS: diphenhydrAMINE CREAM 30GM TOP PRN (12:01)
--- NOTE | 2019-03-02 12:10 | IPN ---
DATE: 03/02/2019 Ms. Arias is feeling a bit nauseated today. She is breathing better, however. She is still on oxygen. The venous study was not a venous study but rather a carotid artery study and I have re-ordered a venous Doppler study of the upper extremities and the internal jugular vein. Her vital signs show a T-max of 97.1 with a heart rate that ranges between 110 and 93 and is sinus rhythm, respiratory rate of 18 to 24 without the use of accessory muscles, who is 94 % saturated on 1 liter nasal cannula, and whose blood pressure is ranging between 105/67 to 91/55. Her intake and output the past 24 hours has been recorded as 850 in and 58 mL out. No urine output was recorded yesterday; however, she has had 350 mL in the last 11 hours. She had 58 mL out from the chest tube yesterday after draining 1400 mL and 20 mL in the last 11 hours. There is no air leak. She weighs 50.5 kilos today compared to 51 kilos yesterday. On physical examination today, her right lung has markedly improved. There are some scattered coarse rhonchi, most of which clear with coughing. This was just opposed to yesterday after placing the chest tube where she had marked rhonchi with a succussion splash. Percussion note is full to the diaphragm. Cardiac exam is without murmurs, clicks, gallops or rubs. I cannot feel her point of maximal impulse (PMI). S1 and S2 are normal. Abdomen is soft and nontender. Bowel sounds are positive but hypoactive. There is no hepatomegaly. No costovertebral angle (CVA) tenderness. Extremities show no pretibial edema. No calf tenderness. No differential swelling of the upper extremities. Skin is warm, dry and perfused without cyanosis or mottling including that of the nail beds and the knees. Neck is supple. There is no jugular venous distention. No subcutaneous emphysema. Trachea is midline. Mouth shows her mucous membranes to be pink and moist. Lips and commissures are without lesions. There is no thrush. Eyes show her pupils to be equal, reactive. Extraocular motors are intact. Sclera nonicteric. Neuro shows II through XII intact, along with gross motor and gross sensation intact. Gait is not tested. Psychiatric shows her to be awake and alert, oriented times three with appropriate mood, affect and conversational. Her white count today is 17.5 with a hemoglobin and hematocrit of 10.5 and 31.8, essentially unchanged from yesterday. Platelet count is 374 and stable. Differential shows 81% neutrophils, 6% lymphocytes, 4% monocytes. There are no immature forms today and there are no toxic granulations. Her electrolytes still show a sodium of 128 with a potassium of 3.7. BUN and creatinine of 14 and 0.95 respectively. I have discontinued her Toradol. Glucose is 153 with a calcium of 7.6. Her pleural fluid has been returned with pH of 7.63, with a glucose of 106, LDH of 275, and a total protein of 4.1. She has a corresponding serum LDH and total protein of 291 and 5.8. This makes it mildly exudative. The cell count shows 1364 white cells, 76% are non-neutrophilic, and most likely lymphocytic although they are labeled as mononuclear in the differential. 22% are neutrophils. This is probably going to returned goods sorter to be a exudative malignant pleural effusion. Microbiology does not show any organisms on gram stain and pathology is pending. Her chest x-ray today shows the lung fully expanded to the chest wall. She has an infiltrative pattern consistent with resolving compression atelectasis. Chest tube is in excellent position. IMPRESSION: 1. Right sided pleural effusion, probably malignant. 2. Left lower lobe atelectatic changes. 3. Stage IV lung cancer and metastatic pleural fluid. 4. Hypertension. 5. Hyponatremia. 6. Pulmonary embolism (PE). 7. Left carotid thrombus. 8. Leukocytosis, probably secondary to Neulasta. 9. Eosinophilia secondary to Neulasta and subcutaneous rash. 10. Gastroesophageal reflux disease (GERD). 11. Chronic obstructive pulmonary disease (COPD). PLAN AND DISCUSSION: She has put out very little out the chest tube and there is no air leak. I will remove her chest tube today. I was thinking about sending her home today, however she feels bit under the weather and we have not weaned her from her oxygen. Furthermore, the proper vascular study was not undertaken as it was arterial rather than venous. She is on anticoagulation at this point in time. Will also start her on Reglan. I will discontinue the Toradol. Hopefully we will be able to discharge her tomorrow and she will return to see me in one week to follow her pleural effusions. She understands that the pleural effusion may very well return at which point we will undertake a PleurX catheter.
--- NOTE | 2019-03-02 14:15 | REP ---
Left jugular duplex Doppler ultrasound for thrombus: The study is correlated with the chest CT performed recently. With Doppler ultrasound. The left jugular vein demonstrates normal antegrade vascular flow. There is no intraluminal thrombus. Impression: No left jugular vein thrombus. There is antegrade vascular flow. Electronically Signed by Parish Andujar MD 03/02/2019 02:07 P
--- NOTE | 2019-03-02 15:41 | PHACANCOPD ---
PHARMACY VANCOMYCIN DOSING Pt Demographics Demographics Patient Age:68 , Weight:50.500 , Gender: female Adjusted Body Weight Date: 03/01/19, Adjusted Body Weight: Kg Events Past 24 Hours Events Past 24 Hours: YES: Change in CrCl Vancomycin Vancomycin indication: PNEUMONIA Vancomycin Target Ranges: 15-20 mcg/ml Vancomycin Load Y/N: Yes Load Dose Date Time Vancomycin Load Dose: 1g Date: 03/01/19 Time:1600 Vancomycin Dose Date: 03/01/19. Current Vancomycin Dose: [750mg IV Q12H] Intermittent Dosing?: No Labs Labs Item Value Date Time Creatinine 0.95 MG/DL # 03/02/19 0525 White Blood Count 18.3 10^3/uL H 03/01/19 1053 White Blood Count 17.5 10^3/uL H 03/02/19 0525 Creatinine 0.50 MG/DL L 03/01/19 1053 Vancomycin Level Trough 10.2 UG/ML 03/02/19 1453 Micro Microbiology 03/01/19 Blood Culture - Preliminary, Resulted No growth after 24 hours . All specim... 03/01/19 Blood Culture - Preliminary, Resulted No growth after 24 hours . All specim... 03/01/19 Acid Fast Stain, Received Pending 03/01/19 Mycobacterial Culture, Received Pending 03/01/19 Fungal Smear, Received Pending 03/01/19 Fungal Culture, Received Pending 03/01/19 Gram Stain - Final, Resulted 03/01/19 Anaerobic Culture, Resulted Pending 03/01/19 Body Fluid Culture, Received Pending 03/01/19 MRSA Screen, Received Pending 03/01/19 Gram Stain - Final, Resulted 03/01/19 Sputum Culture, Resulted Pending Creatinine Clearance Date:03/01/19. Est Creatinine Clearance: [~50ml/min]. Pending Labs Vancomycin trough level scheduled to be drawn 03/02/19 @1500 - prior to the 3rd dose Assessment and Plan Maintaining Current Dose?: Yes Reason for dose change: No Dose Change Pharmacist Note Pharmacist Note Date: 03/02/19. Pharmacist note: PT vancomycin trough came back today at 14:53 at 10.2mcg/ml prior to the 3rd dose. Serum creatinine has increased from 0.5mg/dl to .95mg/dl. We will continue 750mg vancomycin IV every 12 hours. Another trough is scheduled prior to the 5th dose 03/03 @15:00. We will continue to monitor and adjust the dose as needed. Date: 03/01/19. Pharmacist note: Day #1 empiric vancomycin therapy initiated with a 1g loading dose, followed by a maintenance regimen of 750mg IV Q12H for the treatment of pneumonia - aiming for a goal trough of 15-20mcg/ml. The patient has a PMH of lung cancer and COPD, and started chemotherapy last week. WBC is elevated and the patient is febrile on admit. Blood culture and sputum cultures are currently pending. Procalcitonin level is currently pending. No hx of MRSA or vanco use here at [facility]. Full H&P is not available at this time. A vancomycin trough level has been scheduled to be drawn tomorrow, 03/02/19, at 1500 - prior to the 3rd dose to ensure adequate monitoring. We will continue to monitor and make dose adjustments if needed. JOHNNIE CASAREZ [facility]ARM[facility] Mar 02, 2019 15:41
--- NOTE | 2019-03-02 17:24 | IPNPDOC ---
Text Note Date of Service The patient was seen on 03/02/19. NOTE S:Patient being seen for PE, elevated WBC , fever and shortness of breath. States breathing is returned to baseline with thoracentesis. no CP, no SOB. feel better and no reoccurance of fever. States still with nausea but "bearable". O: Vitals as below General: pleasant, NAD AAOx3 HRRR LCTA with good breathsounds, no W/R/R Ext: no edema Abdomen: soft NT ND NABS CXR: images reviewed with daughters and patient from 01/2019 to present showing pleual effusion and improvement post thorocentesis. A/P: 68 yo female with stage IV poorly differentiated adenoca lung, with new diagnosis of PE and pleural effusions 1. (Doubt DIAGNOSIS )Sepsis 2/2 post-obstructive pneumonia 2/2 stage IV A, [id number], poorly differentiated adenocarcinoma of the lung Case discussed with DR Alan. pleural fluid appears exudative non nuerophilic. Suspect sepsis due to fever/leukocytosis is in error as patient is on neulasta after recent chemotherapy which contributes to elevated WBC and significant plate like atelectasis contributes to fever. Continue with IS, PEP and antibiotics until culture returned. Advance diet 2. Right sided pleural effusion likely due to lung cancer Thoracic surgery consulted Thoracentesis 03/01/19 3. Pulmonary embolism with possible subclavian thrombus Carotid ultrasound ordered in error, need venous studies (correct studies ordered by thoracic surgery) started on eliquis. 4. Eosinophilia with rash due to chemotherapy prn topical Triamcinolone, topical Benadryl Symptomatic care 5. hyponatremia and nausea due to chemotherapy - Monitor prn Prochlorperazine, Ondansetron; monitor sodium 6. COPD without exacerbation - continue nebs, no need for steroids at this time 7. GERD - PPI Discharge planning: possible discharge tomorrow (after Dr Alan reviews neck imaging studies and in agreement) and if blood cultures remain negative. VS,Fishbone, I+O VS, Fishbone, I+O Laboratory Tests 03/02/19 05:25 Red Blood Count 3.74 L, Mean Corpuscular Volume 85.0, Mean Corpuscular Hemoglobin 28.1, Mean Corpuscular Hemoglobin Concent 33.0, Red Cell Distribution Width 13.2, Calcium Level 7.6 L Vital Signs Date Time Temp Pulse Resp B/P (MAP) Pulse Ox O2 Delivery O2 Flow Rate FiO2 03/02/19 16:00 99.6 124 18 122/58 (79) 94 2.0 03/01/19 15:22 Nasal Cannula I&O- Last 24 Hours up to 6 AM 03/02/19 06:00 Intake Total 1715 ml Output Total 428 ml Balance 1287 ml ALVINO PENA DO Mar 02, 2019 17:24
[2019-03-02] MEDS: MOM 30ML SUSPENSION UDC PO SCH (18:21)
[2019-03-02] MEDS: FOLIC ACID 1 MG TAB PO SCH (18:21)
[2019-03-02] MEDS: FERROUS SULFATE 325MG TAB PO SCH (18:21)
[2019-03-02] MEDS: ATORVASTATIN 10 MG TAB PO SCH (18:22)
[2019-03-02] MEDS: OMEPRAZOLE 20 MG CAP PO SCH (18:22)
[2019-03-02] MEDS ORDERED: ACETAMINOPHEN TAB 650MG DOSE (2X325MG) PO PRN (21:30)
[2019-03-03] MEDS: LEVALBUTEROL 1.25 MG/0.5 ML CONCENTRATE NEB NEB SCH ×2 (02:10→07:14)
[2019-03-03] MEDS: CEFEPIME HCL 2 GM in D5W MINI-BAG PLUS 50 ML IV SCH (03:28)
[2019-03-03 04:00] VITALS: BP 104/50
[2019-03-03] MEDS: VANCOMYCIN HCL 750 MG, VIAL MATE ADAPTER 1 EACH in D5W 250 ML IV SCH (04:09)
[2019-03-03] MEDS: METOCLOPRAMIDE INJ 10MG/2ML VIAL (J2765) IV SCH ×2 (05:19→11:04)
[2019-03-03 06:17] LABS: HEMATOCRIT 31.1 % (36.0-47.0); HEMOGLOBIN 10.6 g/dl (12.0-15.5); MEAN CORPUSCULAR HEMOGLOBIN 29.3 pg (27.0-33.0); MEAN CORPUSCULAR HGB CONC 34.1 g/dl (32.0-36.5); MEAN CORPUSCULAR VOLUME 85.9 fl (80.0-96.0); PLATELET COUNT, AUTOMATED 514 10^3/uL (150-450); RED BLOOD COUNT 3.62 10^6/uL (4.00-5.40); WHITE BLOOD COUNT 20.4 10^3/uL (4.0-10.0)
[2019-03-03 06:38] LABS: CALCIUM LEVEL 7.8 MG/DL (8.8-10.2); CREATININE FOR GFR 1.09 MG/DL (0.55-1.30); GLOMERULAR FILTRATION RATE 53.5 (>45)
[2019-03-03 07:02] LABS: BASOPHILS 2 % (0-4); EOSINOPHILS 5 % (0-5); LYMPHOCYTES 10 % (16-52); METAMYELOCYTES 3 % (0-0); MONOCYTES 3 % (0-8); MYELOCYTES 1 % (0-0); NEUTROPHILS 75 % (35-75); PLATELET ESTIMATE INCREASED (NORMAL)
[2019-03-03 07:04] LABS: TOXIC GRANULATION 1+
[2019-03-03] MEDS: TIOTROPIUM INHALER/CAPSULE (SPIRIVA) INH SCH (07:14)
[2019-03-03 08:00] VITALS: BP 102/58
--- NOTE | 2019-03-03 08:12 | REP ---
PA and lateral chest: Comparison is 03/02/2019. The the right thoracotomy tube has been removed. There is no pneumothorax. There is a right pleural effusion effacing the right costophrenic angle, unchanged in size. Atelectasis is again suspected inferiorly in the right lung, likely a consequence of the previous large right pleural effusion that was reduced in size with placement of the thoracotomy tube. The thoracotomy tube has been removed. The patient has known multiple right lung nodules. Left lung is clear. Cardiac size normal. The alcira, mediastinum, skeletal structures are unremarkable. Impression: There has been interval removal of the right thoracotomy tube. No other interval change. Electronically Signed by Parish Andujar MD 03/03/2019 08:03 A
[2019-03-03] MEDS: OMEPRAZOLE 20 MG CAP PO SCH (08:33)
[2019-03-03 08:35] VITALS: BP 118/68
[2019-03-03] MEDS: MOM 30ML SUSPENSION UDC PO SCH (08:35)
[2019-03-03] MEDS: ATORVASTATIN 10 MG TAB PO SCH (08:35)
[2019-03-03] MEDS: DOCUSATE SODIUM 100 MG CAP PO SCH (08:35)
[2019-03-03] MEDS: APIXABAN 5 MG TAB (ELIQUIS) PO SCH (08:35)
[2019-03-03] MEDS: IRBESARTAN 150 MG TAB PO SCH (08:35)
[2019-03-03] MEDS: FERROUS SULFATE 325MG TAB PO SCH (08:35)
[2019-03-03] MEDS: FOLIC ACID 1 MG TAB PO SCH (08:35)
[2019-03-03] MEDS: TRIAMCINOLONE ACET 0.1% CREAM 80 GM TOP SCH (08:36)
--- NOTE | 2019-03-03 08:49 | IPNPDOC ---
Text Note Date of Service The patient was seen on 03/03/19. NOTE S: patient feeling better today. walked to radiology for her CXR. still requ iring 2 liter oxygen for sat 90-92%. O: Vitals as below HRRR LCTA with scattered rales, no wheeze, no rhonchi. Ext no edema Labs and cxr images visualized and reviewed with patient and daughter A/P: 68 yo female with stage IV poorly differentiated adenoca lung, with new diagnosis of PE and pleural effusions DIAGNOSIS IN ERROR _Sepsis 2/2 post-obstructive pneumonia 2/2 stage IV A, [id number], poorly differentiated adenocarcinoma of the lung Case discussed with DR Alan. pleural fluid appears exudative non nuerophilic. Suspect sepsis due to fever/leukocytosis is in error as patient is on neulasta after recent chemotherapy which contributes to elevated WBC and significant plate like atelectasis contributes to fever. Continue with IS, PEP and antibiotics until culture returned. Advance diet 1. Leukocytosis due to nuelasta (Given on 02/19) not infection. case discussed with Dr Bill. no need to send home with antibiotics and keep usual follow up appointment. 2. Right sided pleural effusion likely due to lung cancer - RESOVLED Thoracic surgery consulted Thoracentesis 03/01/19 3. Pulmonary embolism with NO left jugular vein thrombosis continue eliquis 4. Eosinophilia with rash due to chemotherapy prn topical Triamcinolone, topical Benadryl Symptomatic care 5. hyponatremia and nausea due to chemotherapy - Monitor prn Prochlorperazine, Ondansetron; monitor sodium 6. COPD without exacerbation - continue nebs, no need for steroids at this time 7. GERD - PPI Discharge home today if okay with Rebeca Funes, I+O Rebeca COFFEY, I+O Laboratory Tests 03/03/19 05:46 Red Blood Count 3.62 L, Mean Corpuscular Volume 85.9, Mean Corpuscular Hemoglobin 29.3, Mean Corpuscular Hemoglobin Concent 34.1, Red Cell Distribution Width 13.1, Calcium Level 7.8 L Vital Signs Date Time Temp Pulse Resp B/P (MAP) Pulse Ox O2 Delivery O2 Flow Rate FiO2 03/03/19 08:35 118/68 03/03/19 08:00 98.5 128 18 92 1.0 03/03/19 07:17 Nasal Cannula I&O- Last 24 Hours up to 6 AM 03/03/19 06:00 Intake Total 940 ml Output Total 675 ml Balance 265 ml ALVINO PENA DO Mar 03, 2019 08:48
[2019-03-03] MEDS ORDERED: SLF 3 ML SYR IV PRN (11:00)
[2019-03-03 12:00] VITALS: BP 102/50
[2019-03-03] MEDS ORDERED: ELIQ5TAB PO (12:34)
[2019-03-03] MEDS ORDERED: HYDR-4571 PO (12:34)
--- NOTE | 2019-03-03 13:07 | IPN ---
DATE: 03/03/2019 Ms. Arias feels so much better today. She is breathing well and her chest x-ray shows no change from yesterday and there is no return of her pleural effusion. Her vital signs show a maximum temperature (t-max) of 100.1, however at 8 o'clock last night. Heart rate ranges between 93 and 128 in a sinus rhythm, respiratory rate of 16 to 18 without the use of accessory muscles, who is 92 to 93% saturated on 1 liter nasal cannula. Her intake and output the past 24 hours has been recorded as 1240 in and 595 out for a positivity of 645 mL. Her chest tube was removed yesterday. Weight today is 51.2 kg compared to 50.5 kg yesterday. PHYSICAL EXAMINATION: LUNGS: She has equal breath sounds on either side. There are a few inspiratory crackles at the right base. Percussion note is full to the diaphragm. CARDIAC EXAM: Without murmurs, clicks, gallops or rubs. I cannot feel her point of maximum impulse (PMI). S1, S2 are normal. ABDOMEN: Soft, nontender. Bowel sounds positive. There is no hepatomegaly. No costovertebral angle tenderness. EXTREMITIES: Show no pretibial edema. No calf tenderness. No differential swelling of the upper extremities. SKIN: Warm, dry and perfused without cyanosis or mottling, including that of the nail beds and knees. She has a diffuse maculopapular rash secondary to chemotherapy. NECK: Supple. There is no jugular venous distention. No subcutaneous emphysema. Trachea is midline. MOUTH: Shows her mucous membranes to be pink and moist. Lips and commissures without lesions. There is no thrush. EYES: Show her pupils to be equal and reactive. Extraocular motion intact. Sclerae anicteric. NEUROLOGIC: Shows II through XII intact with gross motor and gross sensation intact. Gait is not tested. PSYCHIATRIC: Shows her to be awake and alert, oriented times three with appropriate mood and affect and conversational. LABORATORY DATA: Her white count today is up to 20.4 with a hemoglobin and hematocrit of 10.6 and 31.1. Differential shows 75% neutrophils, 1% bands, 10% lymphocytes, 3% metamyelocytes and 1 myelocyte. She has 1+ toxic granulations again today. Nonetheless, we think that all of this is secondary to Neulasta, and she does not need continued antibiotics. Her sodium is 125 with a hemoglobin and hematocrit of 18 and 1.09. Glucose is 104 with a calcium of 7.8. I discussed her pleural fluid yesterday. There is no new microbiology on her. Pathology is still pending, and I suspect that it is going to come back malignant. Her chest x-ray is discussed above and shows no return of her pleural effusion. She still has diffuse opacities, probably secondary to post atelectatic compression. IMPRESSION: 1. Right sided pleural effusion, probably malignant, mildly exudative. 2. Left lower lobe atelectatic changes. 3. Stage IV lung cancer metastatic to the pleural fluid. 4. Hypertension. 5. Hyponatremia. 6. Pulmonary embolism (PE). 7. Leukocytosis, probably secondary to Neulasta. 8. Eosinophilia secondary to Neulasta and subcutaneous rash. 9. Gastroesophageal reflux disease (GERD). 10. Chronic obstructive pulmonary disease (COPD). PLAN AND DISCUSSION: Her venous ultrasound of her neck does not show a left internal carotid artery thrombus. It was a spurious finding on CAT scan. She does have a pulmonary embolism in the left upper lobe pulmonary artery and she is on Eliquis. The leukocytosis is no doubt secondary to the Neulasta, along with the left shift. She exhibits no further signs of symptoms of an infective process. I see no reason why we cannot discharge her today. She will followup with me in 7 to 10 days with a chest x-ray to follow her pleural effusion and Dr. Brandon will see her on Sunday for followup.
--- NOTE | 2019-03-03 13:14 | DS.PDOC ---
Discharge Summary General Date of Admission Mar 01, 2019 at 14:18 Date of Discharge 03/03/19 Primary Care Physician: Basia Kelly Attending Physician: ALVINO PENA DO Specialist/Consultants Involve: Wil Alan M.D. Discharge Summary PROCEDURES PERFORMED DURING STAY: 03/01 thorocentesis - diagnostic/therapeutic with placement of right thoracotomy tube ADMITTING DIAGNOSES: 1. Sepsis 2/2 post-obstructive pneumonia 2/2 stage IV A, [id number], poorly differentiated adenocarcinoma of the lung 2. Right sided pleural effusion 3. Pulmonary embolism 4. Neutrophilic leukocytosis 5. Fever 6. Eosinophilia 2/2 chemotherapy resulting in cutaneous rash 7. Chemotherapeutic hyponatremia 8. Chemotherapeutic nausea 9. COPD 10. GERD 11. Constipation DISCHARGE DIAGNOSES: 1. Right sided pleural effusion, probably malignant, mildly exudative. 2. Left lower lobe atelectatic changes. 3. Stage IV lung cancer metastatic to the pleural fluid.- present on admission 4. Hypertension. 5. Hyponatremia due to chemotherapy 6. Pulmonary embolism (PE). 7. Leukocytosis, probably secondary to Neulasta. 8. Eosinophilia secondary to Neulasta and subcutaneous rash. 9. Gastroesophageal reflux disease (GERD). 10. chronic nausea secondary to chemotherapy 11. Chronic obstructive pulmonary disease (COPD). COMPLICATIONS/CHIEF COMPLAINT: Pleural Effusion. HISTORY OF PRESENT ILLNESS: 68 yo female with stage IV lung cancer presented with "few days" of SOB, dry cough and fever. She was admitted with possible sepsis. HOSPITAL COURSE: Patient admitted, placed on oxygen and thoracentesis performed. She was placed on vanc/cefepime for possible pneumonia and sepsis. The pleural fluid appears exudative non nuerophilic and therefore the diagnosis of sepsis due to fever/leukocytosis is in error as patient is on neulasta after recent chemotherapy which contributes to elevated WBC and significant plate like atelectasis contributes to fever. CTA chest revealed small PE with concerns of DVT in jugular vein. She was started on eliquis and US of jugular vein systems showed NO DVT. She continued to improve and after thoracentesis and treatment of PE, she no longer required supplemental oxygen at the time of discharge. cultures remained negative at time of discharge. antibiotics were discontinued and patient was discharged in stable and improved condition. Case discussed with Dr Bill in oncology DISCHARGE MEDICATIONS: Please see below. ALLERGIES: Please see below. PHYSICAL EXAMINATION ON DISCHARGE: VITAL SIGNS: Please see below. General: pleasant NAD AAOX3 HRRR LCTA with scattered rales, no wheeze, no rhonchi. Ext no edema LABORATORY DATA: Please see below. IMAGING: CTA CHEST Tiny embolus within a single left upper lobe pulmonary artery. Question of a left jugular venous thrombus as discussed in the report. Correlate clinically and consider ultrasound. Known multiple right hemithorax pleural-based lung nodules. Large right pleural effusion, significantly increased in size. Compression atelectasis of the left lung from the large effusion. PROGNOSIS:good ACTIVITY: as tolerated DIET: regular DISCHARGE PLAN: discharge home DISCHARGE INSTRUCTIONS: 1. follow up with oncology as scheduled next week 2. follow up with Dr Alan in 1-2 weeks 3. bandaid dressing over thoracostomy site 4. take eliquis 10mg BID for 4 more days then 5mg bid thereafter ITEMS TO FOLLOWUP ON ON OUTPATIENT: 1. blood culture and pleural effusion cultures, cytology, etc DISCHARGE CONDITION: stable TIME SPENT ON DISCHARGE: 40 minutes Vital Signs/I&Os Vital Signs Date Time Temp Pulse Resp B/P (MAP) Pulse Ox O2 Delivery O2 Flow Rate FiO2 03/03/19 12:00 99.3 119 18 102/50 (67) 90 1.0 03/03/19 07:17 Nasal Cannula I&O- Last 24 Hours up to 6 AM 03/03/19 06:00 Intake Total 940 ml Output Total 675 ml Balance 265 ml Laboratory Data Labs 24H Laboratory Tests 2 03/02/19 14:53: Vancomycin Level Trough 10.2 03/03/19 05:46: Immature Granulocyte % (Auto) , Nucleated Red Blood Cells % (auto) 0.0, Neutrophils 75, Band Neutrophils 1, Lymphocytes (Manual) 10L, Monocytes (Manual) 3, Eosinophils (Manual) 5, Basophils (Manual) 2, Metamyelocytes 3H, Myelocytes 1H, Toxic Granulation 1+, Platelet Estimate INCREASED, Red Blood Cell Morphology , Anion Gap 8, Glomerular Filtration Rate 53.5, Blood Urea Nitrogen 18, Creatinine 1.09, Sodium Level 125L, Potassium Level 4.0, Chloride Level 92L, Carbon Dioxide Level 25, Calcium Level 7.8L CBC/BMP Laboratory Tests 03/03/19 05:46 Red Blood Count 3.62 L, Mean Corpuscular Volume 85.9, Mean Corpuscular Hemoglobin 29.3, Mean Corpuscular Hemoglobin Concent 34.1, Red Cell Distribution Width 13.1, Calcium Level 7.8 L Microbiology Microbiology 03/01/19 Blood Culture - Preliminary, Resulted No Growth after 48 hours. All Specime... 03/01/19 Blood Culture - Preliminary, Resulted No Growth after 48 hours. All Specime... 03/01/19 Acid Fast Stain, Received Pending 03/01/19 Mycobacterial Culture, Received Pending 03/01/19 Fungal Smear, Received Pending 03/01/19 Fungal Culture, Received Pending 03/01/19 Gram Stain - Final, Complete 03/01/19 Anaerobic Culture - Final, Complete 03/01/19 Body Fluid Culture - Final, Complete 03/01/19 MRSA Screen - Final, Complete 03/01/19 Gram Stain - Final, Complete 03/01/19 Sputum Culture - Final, Complete Discharge Medications Scheduled Apixaban (Eliquis) 5 Mg Tablet, 5 MG PO BID take 10mg BID for 4 more days, then use 5mg BID thereafter Atorvastatin Calcium (Atorvastatin Calcium) 10 Mg Tablet, 10 MG PO DAILY, (Reported) Carboplatin (Carboplatin) 10 Mg/1 Ml Vial, 450 MG IV Q2WK, (Reported) Cyanocobalamin (Cyanocobalamin Injection) 1,000 Mcg/1 Ml Vial, 1,000 MCG IM ASDIRECTED, (Reported) EVERY 3RD CYCLE OF CHEMO Dexamethasone (Dexamethasone 10 mg/ml Vial) 10 Mg/1 Ml Vial, 10 MG IV Q2WK, (Reported) Ferrous Sulfate (Iron) 325 Mg Tablet, 325 MG PO DAILY, (Reported) Folic Acid (Folic Acid) 1 Mg Tablet, 1 MG PO DAILY, (Reported) Fosaprepitant (Emend) 150 Mg Vial, 150 MG IV Q2WK, (Reported) Irbesartan (Irbesartan) 150 Mg Tablet, 75 MG PO BID, (Reported) Omeprazole (Omeprazole) 40 Mg Capsule.dr, 40 MG PO DAILY, (Reported) Palonosetron HCl (Palonosetron HCl) 0.25 Mg/5 Ml Vial, 0.25 MG IV Q2WK, (Reported) Pegfilgastrim (Neulasta) 6 Mg/0.6 Ml Syringe, 6 MG SC ASDIRECTED, (Reported) APPLY ON DAY ONE OF CHEMO Pembrolizumab (Keytruda) 100 Mg/4 Ml Vial, 200 MG IV Q2WK, (Reported) Pemetrexed Disodium (Alimta) 500 Mg Vial, 750 MG IV Q2WK, (Reported) Prednisone (Prednisone) 5 Mg Tablet, 2.5 MG PO Q3RD, (Reported) Raloxifene HCl (Raloxifene HCl) 60 Mg Tablet, 60 MG PO DAILY, (Reported) Triamcinolone Acet (Triamcinolone Acetonide 0.1% Crm) 80 Gm Cream..g., 1 APLCT TOP BID for rash Umeclidinium [place] (Incruse Ellipta) 62.5 Mcg Blst.w.dev, 1 PUFF INH DAILY, ( Reported) Scheduled PRN Acetaminophen (Acetaminophen) 500 Mg Tablet, 1,000 MG PO Q6H PRN for PAIN, (Reported) Albuterol Sulf (Albuterol Sulfate) 2.5 Mg/3 Ml Vial.neb, 1 NEB INH QID PRN for SHORTNESS OF BREATH, (Reported) Albuterol Sulfate (Ventolin Hfa) 18 Gm Hfa.aer.ad, 2 PUFFS INH QID PRN for SHORTNESS OF BREATH, (Reported) Diphenhydramine HCl/Zinc Acet (Banophen Anti-Itch 2% Cream) 28 Gm Cream..g., 1 APLCT TOP BID PRN for RASH, (Reported) APPLY TO AREAS OF RASH Hydrocodone/Acetaminophen (Hydrocodone-Acetamin 5-325 mg) 1 Each Tablet, 1 TAB PO Q4HP PRN for MILD PAIN (PS 1-4) Ondansetron (Ondansetron Odt) 8 Mg Tab.rapdis, 8 MG PO Q6H PRN for NAUSEA, (Reported) Prochlorperazine Maleate (Prochlorperazine Maleate) 10 Mg Tablet, 10 MG PO Q6H PRN for NAUSEA OR VOMITING, (Reported) Triamcinolone Acet (Triamcinolone Acetonide 0.1% Crm) 80 Gm Cream..g., 1 APLCT TOP BID PRN for RASH, (Reported) APPLY TO AREAS OF RASH Allergies Coded Allergies: albuterol (Verified Adverse Reaction, Mild, nausea, 03/01/19) ALVINO PENA DO Mar 03, 2019 12:43
[2019-03-03] MEDS ORDERED: SLF 3 ML SYR IV SCH (14:00)
--- NOTE | 2019-03-03 14:51 | RO ---
DATE OF PROCEDURE: 03/01/2019 PREPROCEDURE DIAGNOSIS: Right pleural effusion with shortness of breath. POSTPROCEDURE DIAGNOSIS: Right pleural effusion with shortness of breath. PROCEDURE: Insertion of a right lateral chest tube under moderate sedation. SURGEON: Wil Alan MD COPPER ETCHER: ANESTHESIA: DESCRIPTION OF PROCEDURE: Under satisfactory moderate sedation achieved eventually with 4 mg of Versed, the patient was prepped and draped in the usual sterile fashion. The chest tube site was previously chosen by inspecting the CT scan. The skin and subcutaneous tissue, intrathoracic muscles, and pleura were infiltrated with 1% lidocaine at approximately the 8th rib over the 7th intercostal space. Incision was made, and a tunnel was made in the chest without difficulty. A #24 chest tube was placed and drained 1400 mL of veronique fluid. This was sent for the requisite studies of hematology, cytologies, bacteriologies, and chemistries. The tube was secured to the chest wall with #2 Tevdek suture and connected to the Pleur-evac after collecting the fluid in a Manzo bag. The patient tolerated the procedure well, and a chest x-ray is pending.
== END 2019-03-03 14:19 | disposition home or self-care (01) | DRG 180 ==
LOC: M ED 09:59 → M ED INP 14:18 → M PCU 15:30
PROVIDERS: ADMIT Thoracic Surgery (Cardiothoracic Vascular Surgery); ATTEND Family Medicine
PROC: 0W993ZX Drainage of Right Pleural Cavity, Percutaneous Approach, Diagnostic (ICD-10-PCS; principal; 2019-03-01)
DX: C34.32 Malignant neoplasm of lower lobe, left bronchus or lung (principal); I26.99 Other pulmonary embolism without acute cor pulmonale; J91.0 Malignant pleural effusion; E87.1 Hypo-osmolality and hyponatremia; K21.9 Gastro-esophageal reflux disease without esophagitis; J44.9 Chronic obstructive pulmonary disease, unspecified; I10 Essential (primary) hypertension; D72.829 Elevated white blood cell count, unspecified; D72.1 Eosinophilia; R11.0 Nausea; Z79.899 Other long term (current) drug therapy; Z88.8 Allergy status to other drugs, medicaments and biological substances; Z87.891 Personal history of nicotine dependence; K59.00 Constipation, unspecified

== ENCOUNTER → 2019-03-10 | Outpatient (CLI) | payer MEDICARE ==
[~2019-03-10] MED LIST changes: +BANO2CRE TOP; +CARB450I12 IV; +CYAN1000VL IM; +DEXA10VL IV; +ELIQ5TAB PO; +EMEN150S IV; +HYDR-4571 PO; +IRON65TA2 PO; +KEYT1INJ IV; +PALO0.252 IV; -PANTOPRAZOLE 40MG TAB (PROTONIX) PO SCH; +PEG6SYR SC; +[UNRECOGNIZED DRUG - CODE] IV
--- NOTE | 2019-03-10 14:57 | REP ---
REASON FOR EXAM: History of malignant pleural effusion. COMPARISON: Multiple, the latest 03/03/2019. The patchy opacities seen in the right lower lobe on the prior examination have improved, however, there is persistent right costophrenic angle and cardiophrenic angle blunting status quo. Mild patchy opacities persist in the right upper lobe. The left lung is clear and stable. The heart is not enlarged. There is no change in the osseous structures. IMPRESSION: Improvement, but with persistent findings as described above. Electronically Signed by Hi Newberry DO 03/10/2019 03:29 P
== END ==
LOC: M SMT 09:02
PROVIDERS: ATTEND Thoracic Surgery (Cardiothoracic Vascular Surgery)
DX: R91.8 Other nonspecific abnormal finding of lung field (principal); J91.0 Malignant pleural effusion

== ENCOUNTER → 2019-04-21 | Outpatient (CLI) | payer MEDICARE ==
[~2019-04-21] MED LIST changes: +FLUO20CA8 PO; +ISOVUE-370 76% 100ML VIAL (Q9967) As Ordered ONE
--- NOTE | 2019-04-21 15:18 | REP ---
REASON: Followup stage IV nonsmall cell lung carcinoma. All priors were reviewed, the latest of which is dated 03/11/2019. CONTRAST: 100 Isovue 370. There is mediastinal and right hilar adenopathy which has improved from the latest prior exam. There are no pleural or pericardial effusions. The right-sided pleural effusion seen previously has resolved. The imaged upper abdomen is essentially unchanged and again seen to be within normal limits. The imaged osseous structures are stable and intact. Evaluation of the lungs marie again shows heavy emphysematous changes and heavy right apical pleuroparenchymal scarring status quo. There are multiple small pulmonary nodules and asymmetric lung opacities. These have markedly improved compared to 12/30/2018 while both 03/01/2019 and 03/11/2019 examinations obscured a good number of nodules on the right due to atelectasis and right pleural effusion. No new abnormal nodules, masses, or opacities have developed. IMPRESSION: Although there are some chronic lung field changes as described above, there has been marked improvement as described above. Electronically Signed by Hi Newberry DO 04/21/2019 04:49 P
== END ==
LOC: M RAD 12:34
PROVIDERS: ATTEND Internal Medicine Medical Oncology
DX: C34.90 Malignant neoplasm of unspecified part of unspecified bronchus or lung (principal)
CPT/HCPCS: 71260; Q9967

== ENCOUNTER → 2019-06-18 | Outpatient (CLI) | payer MEDICARE ==
[~2019-06-18] MED LIST changes: +GASTROGRAFIN SOLUTION 30ML (Q9963) As Ordered ONE
--- NOTE | 2019-06-18 17:38 | REP ---
CT of the chest with IV contrast for non-small cell lung carcinoma: Comparisons are 04/21/2019 and 12/30/2018. There are borderline enlarged mediastinal and right hilar nodes, decreased from 12/30/2018 but is similar to 04/21/2019. The right pleural effusion on 12/30/2018 has resolved. This is unchanged from 04/21/2019. On 12/30/2018, there were multiple right lung nodules. These had significantly decreased in size on 04/21/2019. On the study today no residual nodules are identified. There is chronic apical parenchymal scarring in the right upper lobe. This is unchanged. There is extensive bullous replacement of the lung marie. This is unchanged. The thoracic aorta is unremarkable. Cardiac size normal. No pericardial effusion. There are no lytic, blastic or destructive skeletal changes. Impression: There has been significant improvement as discussed. There are no new or enlarging nodules. No new or enlarging adenopathy. Electronically Signed by Parish Andujar MD 06/18/2019 05:29 P
--- NOTE | 2019-06-18 18:07 | REP ---
CT ABDOMEN AND PELVIS WITH ORAL AND IV CONTRAST: TECHNIQUE: Axial contrast enhanced images from the lung bases to the pubic symphysis using 100 mL Isovue 370 intravenous contrast material with multiplanar reformations. The liver demonstrates several subcentimeter hypodense nodules which appear unchanged compared to the prior CT of 03/11/2019. These probably represents benign cysts. The gallbladder is grossly unremarkable. The spleen adrenals, pancreas and kidneys appear unremarkable. There is no hydronephrosis. There is no abdominal aortic aneurysm. There is significant atherosclerotic calcification of the abdominal aorta and branches. There is no aneurysm. I see no adenopathy. There is no free air or free fluid. There is an oval nodule along the anterior superior aspect of the liver which is unchanged since the prior exam with a maximum transverse diameter of 1.4 cm[address] On a prior CT of 01/08/2012 this was present and is only slightly increased in size, at that time it measured 1.2 cm. No bowel wall thickening is seen. A few sigmoid diverticula are present. There is no evidence of a pelvic mass. The urinary bladder is not well distended and not well evaluated. No bone lesion is seen. IMPRESSION: Stable oval nodule along the anterior superior surface of the left lobe of the liver compared to prior studies and consistent with a benign entity. Tiny subcentimeter hypodensities in the liver probably represent tiny cysts, unchanged since the prior CT of 03/11/2019. No evidence of mass or adenopathy. Electronically Signed by Parish Hawthorne MD 06/18/2019 06:46 P
== END ==
LOC: M RAD 14:35
PROVIDERS: ATTEND Internal Medicine Medical Oncology
DX: C34.90 Malignant neoplasm of unspecified part of unspecified bronchus or lung (principal); D72.829 Elevated white blood cell count, unspecified
CPT/HCPCS: 71260; 74177; Q9963; Q9967

== ENCOUNTER → 2019-10-08 | Outpatient (CLI) | payer MEDICARE ==
[~2019-10-08] MED LIST changes: +FLUO20CA20 PO; -FLUO20CA8 PO; -GASTROGRAFIN SOLUTION 30ML (Q9963) As Ordered ONE
--- NOTE | 2019-10-08 09:29 | REPVR ---
PROCEDURE INFORMATION: Exam: CT Head Without And With Contrast Exam date and time: 10/08/2019 8:50 AM Age: 69 years old Clinical indication: Condition or disease; History of cancer (specify primary cancer site): ; Primary cancer: Lung; Additional info: lung CA, jennifer mets TECHNIQUE: Imaging protocol: Computed tomography of the head without and with intravenous contrast. Radiation optimization: All CT scans at this facility use at least one of these dose optimization techniques: automated exposure control; mA and/or kV adjustment per patient size (includes targeted exams where dose is matched to clinical indication); or iterative reconstruction. Contrast material: ISOVUE 370; Contrast volume: 75 ml; Contrast route: IV; COMPARISON: MRI-Brain W/O FOLL BY WITH 02/14/2019 8:52 AM FINDINGS: Brain: There is no acute intracranial hemorrhage, cerebral edema, or midline shift. Mild nonspecific hypodensity within the white matter most suggestive of chronic small vessel ischemic/gliotic change. No suspicious enhancement. See the neck in the area Age-related volume loss is present. Mild cerebral vascular calcifications are noted. Ventricles: The ventricular system is midline and appropriate in size for the degree of sulcal dilatation. No acute hydrocephalus. Bones/joints: Unremarkable. No acute fracture. Sinuses: There is no acute sinusitis. Mild mucosal change in the right side of the sphenoid sinus. Mastoid air cells: The mastoid air cells are clear. Orbits: The included orbital structures are unremarkable. Soft tissues: Unremarkable. IMPRESSION: 1. No suspicious enhancement. No evidence of metastatic disease. 2. No evidence of an acute intracranial injury. No intracranial hemorrhage. No CT evidence of acute cortical infarct. Followup as clinically warranted. 3. Nonemergent/chronic findings as described above. Electronically signed by: Hans Aly On 10/08/2019 09:29:12 AM
== END ==
LOC: M RAD 08:28
PROVIDERS: ATTEND Internal Medicine Medical Oncology
DX: C34.90 Malignant neoplasm of unspecified part of unspecified bronchus or lung (principal)
CPT/HCPCS: 70470; Q9967

== ENCOUNTER → 2019-12-17 | Outpatient (CLI) | payer MEDICARE ==
[~2019-12-17] MED LIST changes: +GASTROGRAFIN SOLUTION 30ML (Q9963) As Ordered ONE; -IRBE150T12 PO; +IRBE150T7 PO
--- NOTE | 2019-12-17 14:24 | REP ---
REASON: History of lung carcinoma. COMPARISON: Multiple, the latest 09/24/2019. CONTRAST: 100 mL of Isovue 370. The liver, gallbladder, spleen, pancreas, right adrenal gland, and kidneys are within normal limits. Incidental note is again made of a few tiny hepatic cysts status quo. Seen in the left adrenal gland, there is a 1 cm sized focus of enhancement, which represents a change when compared to 03/11/2019. There is no woodrow abnormal adrenal gland enlargement, however. The abdominal aorta and para-aortic regions are within normal limits and essentially unchanged. No adenopathy has developed. The bowel loops and their mesenteries are essentially unchanged and again seen to be within normal limits. There is no free fluid or free air. CT PELVIS: The bowel loops and their mesenteries are within normal limits. No mass or adenopathy has developed. There is no free fluid or free air. Bone window technique throughout the examination shows the osseous structures to be stable and intact. IMPRESSION: Tiny focus of left adrenal gland enhancement as described above. It appears to represent a subtle change compared to the prior exams and for which I would recommend pre- and post gadolinium enhanced adrenal gland MRI for further evaluation. A small metastatic lesion can not be ruled out Other findings as described above. Electronically Signed by Hi Newberry DO 12/17/2019 02:35 P
--- NOTE | 2019-12-17 14:30 | REP ---
REASON: Followup lung carcinoma. COMPARISON: Multiple, the latest 09/24/2019. CONTRAST: 100 mL Isovue 370. The mediastinum and pulmonary alcira are stable. There is no mass or adenopathy. There are no pleural or pericardial effusions. The imaged osseous structures are stable and intact. Evaluation of the lung marie again show chronic emphysema changes with heavy right apical pleuroparenchymal scarring status quo. No new abnormal nodules, mass, or opacities have developed. There is cylindrical bronchiectasis status quo. IMPRESSION: Stable appearing chronic changes as described above. Electronically Signed by Hi Newberry DO 12/17/2019 02:35 P
== END ==
LOC: M RAD 12:31
PROVIDERS: ATTEND Internal Medicine Medical Oncology
DX: C34.90 Malignant neoplasm of unspecified part of unspecified bronchus or lung (principal); D72.829 Elevated white blood cell count, unspecified
CPT/HCPCS: 71260; 74177; Q9963; Q9967

== ENCOUNTER → 2020-02-23 | Outpatient (CLI) | payer MEDICARE ==
[~2020-02-23] MED LIST changes: -ISOVUE-370 76% 100ML VIAL (Q9967) As Ordered ONE; +ISOVUE-370 76% 100ML VIAL As Ordered ONE
--- NOTE | 2020-02-23 11:15 | REP ---
REASON: History of nonsmall cell lung carcinoma and followup left adrenal gland enhancing nodule. All priors reviewed, the latest is 12/17/2019. CONTRAST 100 mL Isovue 370. The liver, gallbladder, spleen, adrenal glands, kidneys are unchanged. A small area of enhancement is seen in the left adrenal glands, stable. The abdominal aorta and para-aortic regions are unchanged. The intra-abdominal and intrapelvic bowel loops and their mesenteries are essentially unchanged. No free fluid or free air is seen in the abdomen or pelvis. Bone window technique throughout the exam showed no significant change in the appearance of the osseous structures. IMPRESSION: Stable CT examination of the abdomen and pelvis with findings as described above. Electronically Signed by Hi Newberry DO 02/23/2020 04:02 P
--- NOTE | 2020-02-23 11:19 | REP ---
REASON: Nonsmall cell lung carcinoma. Followup. COMPARISON: 12/17/2019. CONTRAST: 100 mL of Isovue 370. The mediastinum and pulmonary alcira are unchanged. There is no mass or adenopathy. There are no pleural or pericardial effusions. Bone window technique through the examination shows the imaged osseous structures to be stable. Evaluation of the lung marie shows a new asymmetric nodule in the right upper lobe medially abutting the right hilum and measuring 8 mm. This represents a change from all priors. No additional abnormal nodules, masses or opacities have developed. There are chronic lung field changes with heavy emphysematous change and biapical pleuroparenchymal scarring right greater than left status quo. IMPRESSION: There is a new asymmetric nodule in the right upper lobe as described above where pleural reflections overlap. Since it represents a change from prior exams, PET/CT is warranted at this time. Electronically Signed by Hi Newberry DO 02/23/2020 04:02 P
== END ==
LOC: M RAD 08:07
PROVIDERS: ATTEND Internal Medicine Medical Oncology
DX: R06.02 Shortness of breath (principal); C34.90 Malignant neoplasm of unspecified part of unspecified bronchus or lung; J43.9 Emphysema, unspecified
CPT/HCPCS: 71260; 74177; Q9963; Q9967

== ENCOUNTER 2020-05-18 12:35 | Outpatient (CLI) | payer MEDICARE ==
[~2020-05-18] VITALS: Ht 157.5 cm; Wt 60.0 kg
[~2020-05-18 12:35] MED LIST changes: +ARNU1INH3 PO; -GASTROGRAFIN SOLUTION 30ML (Q9963) As Ordered ONE; -ISOVUE-370 76% 100ML VIAL As Ordered ONE
[2020-05-18 12:40] VITALS: BP 134/68
[2020-05-18] MEDS ORDERED: diphenhydrAMINE 25MG CAP As Ordered ONE (12:49)
[2020-05-18] MEDS ORDERED: ACETAMINOPHEN TAB 650MG DOSE (2X325MG) As Ordered ONE (12:49)
[2020-05-18 13:24] VITALS: BP 129/68
[2020-05-18] MEDS ORDERED: diphenhydrAMINE 25MG CAP PO ONE (13:30)
[2020-05-18] MEDS ORDERED: ACETAMINOPHEN TAB 650MG DOSE (2X325MG) PO ONE (13:30)
[2020-05-18 13:45] VITALS: BP 123/56
[2020-05-18 14:43] VITALS: BP 121/60
[2020-05-18 15:22] VITALS: BP 120/59
[2020-05-18 15:45] VITALS: BP 147/70
== END 2020-05-18 15:45 | disposition home or self-care (01) ==
LOC: M INFU 12:35
PROVIDERS: ATTEND Internal Medicine Medical Oncology
DX: D64.9 Anemia, unspecified (principal)
CPT/HCPCS: 36415; 36430; 80053; 82728; 83550; 84439; 84443; 85025; 86850; 86900; 86901; 86920; 96413; G0463; J9271; P9016

== ENCOUNTER → 2020-05-21 | Outpatient (CLI) | payer MEDICARE ==
[~2020-05-21] MED LIST changes: +GASTROGRAFIN SOLUTION 30ML (Q9963) As Ordered ONE; +ISOVUE-370 76% 100ML VIAL As Ordered ONE
--- NOTE | 2020-06-09 09:28 | REP ---
CONTRAST ENHANCED CT OF THE ABDOMEN AND PELVIS CLINICAL: Nonsmall cell lung cancer for follow up. TECHNIQUE: Axial contrast enhanced images from the lung bases to the pubic symphysis using oral (per protocol) and 100 cc Isovue-370 intravenous contrast material with delayed images of the abdomen as well as coronal and sagittal reformations. COMPARISON: 02/23/2020, 12/17/2019 FINDINGS: Liver demonstrates small scattered stable benign cysts measuring up to approximately 7.5 mm. No further hepatic lesions are identified. Spleen, pancreas, gallbladder, right adrenal gland, and bilateral kidneys are normal. Small enhancing lesion in the left adrenal gland is unchanged. Evaluation of the enteric system demonstrates stable small hiatal hernia. No bowel obstruction or acute inflammatory process. Few scattered sigmoid diverticula are noted without diverticulitis. Pelvis demonstrates normal bladder and age-appropriate uterus/adnexa. No pelvic fluid or ascites. No adenopathy. No mass lesions. Atherosclerotic changes to the aorta and vasculature noted without aneurysm or dissection. Musculoskeletal structures are intact and without acute osseous abnormality. IMPRESSION: * Small enhancing left adrenal nodule unchanged in size or appearance. * Few scattered benign hepatic cysts up to 7.5 mm diameter unchanged. * Scattered sigmoid diverticula without acute diverticulitis. * No acute abdominopelvic pathology appreciated. No evidence for metastatic disease. MTDD
--- NOTE | 2020-06-09 09:29 | REP ---
CONTRAST ENHANCED CHEST CT CLINICAL: History of nonsmall cell lung cancer for follow up. TECHNIQUE: Axial contrast enhanced images from the thoracic inlet to the upper abdomen with coronal and sagittal reformations using 100 cc Isovue-370 intravenous contrast material followed by CT of the abdomen and pelvis. COMPARISON: 02/23/2020 FINDINGS: A 14 mm right hilar mass is again identified and has increased in size from prior examination (previously measuring 8.5 mm). Mild associated right hilar adenopathy is noted as well. Further evaluation of the lung marie demonstrates chronic scarring at the right apex along with advanced emphysematous disease. No effusion. No pneumothorax. No further consolidation of significant nodule/mass. Tracheobronchial tree is patent. Further evaluation of the mediastinum demonstrates atherosclerotic changes to the thoracic aorta and coronary arteries without aortic aneurysm or cardiomegaly. No pericardial effusion. Surrounding musculoskeletal structures demonstrate age-related changes without acute osseous abnormality. Limited upper abdomen demonstrates stable enhancing nodule in the left adrenal gland. IMPRESSION: * Enlarging lesion in the right hilar aspect of the right upper lobe measuring roughly 14 mm and enlarged from prior examination. * Stable enhancing left adrenal lesion. * Further chronic nonacute findings as above. MTDD
== END ==
LOC: M RAD 11:29
PROVIDERS: ATTEND Internal Medicine Medical Oncology
DX: K57.30 Diverticulosis of large intestine without perforation or abscess without bleeding (principal); N28.1 Cyst of kidney, acquired; C34.90 Malignant neoplasm of unspecified part of unspecified bronchus or lung
CPT/HCPCS: 71260; 74177; Q9963; Q9967

== ENCOUNTER → 2020-06-07 | Outpatient (CLI) | payer MEDICARE ==
[~2020-06-07] MED LIST changes: -GASTROGRAFIN SOLUTION 30ML (Q9963) As Ordered ONE; -ISOVUE-370 76% 100ML VIAL As Ordered ONE
--- NOTE | 2020-06-16 14:54 | REP ---
PET CT HISTORY: Restaging lung cancer. COMPARISON PET CT STUDY: 01/29/2019. TECHNIQUE: 50 minutes following the intravenous injection of an 8.29 mCi dose of F18 fluorodeoxyglucose (FDG), three-dimension PET CT imaging is acquired from the skull base to the proximal thighs. PET CT FINDINGS: Head and neck soft tissues are unremarkable. The previous study showed multifocal hypermetabolic nodularity and uptake in the right hemithorax. This has improved. There is a hypermetabolic parahilar nodule in the right middle lobe. Maximum standard uptake value in this nodule is 7.35 suspicious for residual disease. The nodule measures 1.3 cm in greatest diameter. No other abnormal hypermetabolic focus is seen within the thorax. There is a precarinal lymph node, which is slightly larger than on the comparison study. Maximum standard uptake value within it is 2.67. This is not felt to be frankly hypermetabolic. It measures only 7 mm in short axis dimension and as such, is not considered pathologically enlarged. In the abdomen and pelvis, there is normal hepatic and splenic FDG accumulation. Gastrointestinal and genitourinary FDG accumulation is seen. There is no abnormal hypermetabolic uptake in the abdomen or pelvis. IMPRESSION: Substantial improvement is noted. There is a 13 mm parahilar right middle lobe nodule, which is hypermetabolic. This may represent residual or recurrent disease. Otherwise negative PET scintigraphy. MTDD
== END ==
LOC: M PLARAD 09:11
PROVIDERS: ATTEND Internal Medicine Medical Oncology
DX: C34.11 Malignant neoplasm of upper lobe, right bronchus or lung (principal)
CPT/HCPCS: 78815; A9552

== ENCOUNTER → 2020-08-03 | Outpatient (CLI) | payer MEDICARE ==
--- NOTE | 2020-08-03 16:52 | REP ---
INDICATION: ABN FINDING OF LUNG FIELD COMPARISON: 05/21/2020 TECHNIQUE: Axial noncontrast images from the thoracic inlet to the upper abdomen with coronal and sagittal reformations. This CT examination was performed using the following dose reduction techniques: Automated exposure control, adjustment of mA and/or kv according to the patient's size, and use of iterative reconstruction technique. FINDINGS: There is a 1.8 cm right perihilar mass with spiculated margins and associated mediastinal/hilar adenopathy. Evaluation is somewhat limited due to the lack of contrast, but subtle enlargement cannot be excluded. Remainder of the examination demonstrates advanced emphysematous changes with primarily biapical as well as scattered scarring. No new consolidation or new mass lesion identified. No pleural effusion. No pneumothorax. Tracheobronchial tree is patent. Stable extensive atherosclerotic disease to the thoracic aorta and coronary arteries noted. No cardiomegaly or pericardial effusion. Musculoskeletal structures are intact and without acute osseous abnormality. Limited upper abdomen demonstrates normal bilateral adrenal glands. IMPRESSION: 1. Right perihilar mass appears to be slightly increased in size from prior examination. Associated mediastinal and hilar adenopathy unchanged. No new lesions are identified. 2. Underlying chronic emphysematous changes and scarring again noted. <Electronically signed by Hans Marrero > 08/03/20 [id number]
== END ==
LOC: M RAD 16:07
PROVIDERS: ATTEND Internal Medicine Pulmonary Disease
DX: R91.8 Other nonspecific abnormal finding of lung field (principal); J43.9 Emphysema, unspecified

== ENCOUNTER 2020-08-25 10:27 | Outpatient (RCR) | payer MEDICARE | END 2020-09-09 | LOC: M ONCR 10:27 | PROVIDERS: ATTEND General Practice | DX: C34.11 Malignant neoplasm of upper lobe, right bronchus or lung (principal) ==

== ENCOUNTER 2020-09-17 13:37 | Outpatient (RCR) | payer MEDICARE | END 2020-10-10 | LOC: M ONCR 13:37 | PROVIDERS: ATTEND General Practice | DX: C34.11 Malignant neoplasm of upper lobe, right bronchus or lung (principal) ==

== ENCOUNTER → 2020-11-17 | Outpatient (CLI) | payer MEDICARE ==
--- NOTE | 2020-11-17 14:15 | REP ---
INDICATION: LUNG CA. Neck pain. COMPARISON: Comparison is made with CT images from August 25, 2020.. TECHNIQUE/RADIOTRACER AND DOSE: 21.9 mCi of Technetium-99m MDP was injected and standard whole-body bone scanning is acquired. FINDINGS: There is asymmetric uptake in the sacroiliac joints, left more prominent than right. There is no bony abnormality seen on CT images from May 21, 2020 or June 07, 2020 in the region of the left sacroiliac joint. The linear distribution of uptake suggests arthropathy in the SI joint region. There is also osteoarthritic uptake in the patellofemoral articulation of the left knee. There is arthritic uptake in the right ankle and osteoarthritic facet joint uptake is seen in the right side of the mid cervical spine. Osteoarthritic facet hypertrophy is noted on CT images from 08/25/2020 at what appears to be the C4-5 facet joint. There is uptake in bilateral kidneys and in the urinary bladder. IMPRESSION: Arthritic uptake pattern as noted above. No evidence to suggest skeletal metastatic disease.. <Electronically signed by Nabeel Sanders > 11/17/20 [id number]
== END ==
LOC: M RAD 09:43
PROVIDERS: ATTEND Internal Medicine Medical Oncology
DX: M47.818 Spondylosis without myelopathy or radiculopathy, sacral and sacrococcygeal region (principal); M25.78 Osteophyte, vertebrae; C34.90 Malignant neoplasm of unspecified part of unspecified bronchus or lung
CPT/HCPCS: 78306; A9503

== ENCOUNTER 2020-12-09 10:05 | Outpatient (RCR) | payer MEDICARE ==
[2020-12-09 11:39] LABS: ALBUMIN 3.9 GM/DL (3.2-5.2); ALT/SGPT 15 U/L (12-78); BILIRUBIN,TOTAL 0.1 MG/DL (0.2-1.0); BLOOD UREA NITROGEN 9 MG/DL (7-18); CALCIUM LEVEL 9.1 MG/DL (8.8-10.2); CARBON DIOXIDE LEVEL 27 MEQ/L (21-32); CHLORIDE LEVEL 96 MEQ/L (98-107); CREATININE FOR GFR 0.69 MG/DL (0.55-1.30); GLOMERULAR FILTRATION RATE > 60.0 (>45); GLUCOSE, FASTING 100 MG/DL (70-100); SODIUM LEVEL 130 MEQ/L (136-145); TOTAL PROTEIN 7.3 GM/DL (6.4-8.2)
[2020-12-14] MEDS ORDERED: MONT10TA10 PO (13:56)
[2020-12-14] MEDS ORDERED: FLON1SPR (13:56)
[2020-12-22] MEDS ORDERED: IRBE150T7 PO (13:15)
== END 2021-01-07 ==
LOC: M ONCM 10:05 → M ONCR 10:05
PROVIDERS: ATTEND General Practice
DX: C34.31 Malignant neoplasm of lower lobe, right bronchus or lung (principal)

== ENCOUNTER → 2020-12-16 | Outpatient (CLI) | payer MEDICARE ==
[~2020-12-16] MED LIST changes: +FLON1SPR; +MONT10TA10 PO
--- NOTE | 2020-12-16 12:46 | REP ---
INDICATION: LUNG CA. COMPARISON: Chest CT without IV contrast dated 08/03/2020, chest CT with IV contrast dated 05/21/2020 and PET scan dated 06/07/2020. TECHNIQUE: CT of the chest with IV contrast. FINDINGS: There is a known right hilar nodule. This nodule today measures 13 mm. This nodule measured 14 mm on 07/19/2020 and 19 mm on 08/03/2020. There is a new focal density posteriorly in the right upper lobe just peripheral to the right hilar nodule measuring up to 3 cm in diameter, not present previously. This could represent a new lung mass or postobstructive atelectasis. There are no other lung nodules, masses or infiltrates.. There are no pleural effusions. There are numerous bulla replacing the lung parenchyma bilaterally, predominantly in the upper lobes. This is unchanged. There is chronic scarring in the lung apices, unchanged. There is no mediastinal or right hilar adenopathy. There is no axillary lymphadenopathy. The thoracic aorta is unremarkable. Cardiac size is normal. Upper abdomen: There is no adrenal nodule or mass. The visualized hepatic parenchyma, gallbladder, pancreas and spleen are unremarkable. IMPRESSION: The known right hilar are nodule is slightly smaller than on the comparison studies. However, there is a new focal 3 cm density posteriorly in the right upper lobe as an interval change. This could represent a new lung mass or possibly postobstructive atelectasis. There are no other lung nodules, masses, infiltrates or effusions. There is no adenopathy. There is bullous emphysema, unchanged. <Electronically signed by Parish Andujar > 12/16/20 [id number]
== END ==
LOC: M RAD 09:30
PROVIDERS: ATTEND General Practice
DX: C34.11 Malignant neoplasm of upper lobe, right bronchus or lung (principal)
CPT/HCPCS: 71260; 74177; Q9963; Q9967

== ENCOUNTER → 2020-12-16 | Outpatient (CLI) | payer MEDICARE ==
[~2020-12-16] MED LIST changes: +GASTROGRAFIN SOLUTION 30ML (Q9963) As Ordered ONE; +ISOVUE-370 76% 100ML VIAL As Ordered ONE
--- NOTE | 2020-12-16 13:19 | REP ---
INDICATION: LUNG CA. COMPARISON: 05/21/2020 and 06/18/2019. TECHNIQUE: The study is performed with IV and bowel contrast is performed contiguously with the chest CT this same date. FINDINGS: There are a few small hepatic cysts. These are unchanged. The gallbladder, pancreas and spleen are normal size, unremarkable and unchanged. The adrenals are unchanged. There is a small enhancing left adrenal nodule, unchanged from 06/18/2019. The kidneys are unremarkable. Abdominal aorta are unremarkable. There is no periaortic adenopathy or mass. The bowel and mesentery are unremarkable. Pelvis: The appendix is unremarkable. The uterus, adnexa and bladder are unremarkable. There is no adenopathy or ascites. The pelvic bowel loops are unchanged. There are a few scattered sigmoid diverticula without diverticulitis, unchanged. There are no lytic, blastic or destructive skeletal changes. IMPRESSION: There is no evidence of adenopathy, ascites or metastatic disease. No change from the prior studies. <Electronically signed by Parish Andujar > 12/16/20 [id number]
== END ==
LOC: M RAD 09:32
PROVIDERS: ATTEND Internal Medicine Medical Oncology
DX: C34.90 Malignant neoplasm of unspecified part of unspecified bronchus or lung (principal)

== ENCOUNTER → 2020-12-22 | Outpatient (CLI) | payer MEDICARE ==
[~2020-12-22] MED LIST changes: -GASTROGRAFIN SOLUTION 30ML (Q9963) As Ordered ONE; -ISOVUE-370 76% 100ML VIAL As Ordered ONE
--- NOTE | 2020-12-22 13:32 | RADONC ---
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 She experienced a radiographic/metabolic CR to chemoimmunotherapy and is maintained on keytruda monotherapy presently. Recently she has experienced progression in a single RUL nodule, which is PET avid but not amenable to biopsy as it abuts the pulmonary artery. She completed SBRT to this nodule 55 Gy in 5 fractions on 09/17/20. Diagnosis/Treatment History Oncologic History December 2018 diagnosed with adenocarcinoma of the RUL and mediastinum. Staging PET-CT 01/29/19 showing pleural metastases and effusion February 2019 suffered a small PE 02/18/19 Started Carbo/pem/pem, suffered Grade 4 skin toxicity, GI bleed, and nausea. Keytruda was held 04/03/19-05/23/19 Carbo/taxol for 3 cycles 06/18/19 CT scans with no radiographic disease in chest 06/19/19-present Resumed maintenance keytruda 05/21/20 CT chest with RUL central lung lesion ~3 cm, new 06/07/20 Avidity of lesion demonstrated, no distant disease 06/23/20 Pulmonology eval, no role for biopsy d/t proximity to the pulmonary arteries on the right. 09/13/20-09/17/20 SBRT to the RUL nodule 55 Gy in 5 fractions Recent data: 12/16/20 CT chest RUL nodule smaller RML post radiation atelectasis and mild fibrosis Interval History Feels well overall. No significant cough. Stable SOB, worse in the morning recently. She attributes this to allergies. Appetite good weight stable. No fevers or chills. Tolerating keytruda well. Current Therapy Keytruda q3w Stage [id number] stage JASMIN NSCLC (adenocarcinoma) of the RUL with pleural metastases/effusio Social History: 30 pack year smoking history quit 2018 Does not drink Allergies / Meds Allergies: Coded Allergies: albuterol (Verified Adverse Reaction, Mild, nausea, 03/01/19) Home Meds Active Scripts Triamcinolone Acet (Triamcinolone Acetonide 0.1% Crm) 80 Gm Cream..g., 1 APLCT TOP BID PRN for RASH, #80 GRAMS 2 Refills APPLY TO AREAS OF RASH Prov:ENEIDA MONTANEZ MD 11/10/20 Ondansetron (Ondansetron Odt) 8 Mg Tab.rapdis, 8 MG PO Q6H PRN for NAUSEA for 15 Days, #30 TAB 6 Refills Prov:Katerina Brandon MD 07/16/19 Reported Medications Irbesartan (Irbesartan) 150 Mg Tablet, 1 TAB PO DAILY 12/22/20 Fluticasone Propionate (Flonase Allergy Relief) 9.9 Ml [place].susp, 50 MCG NA, SPR 12/14/20 Montelukast Sodium (Montelukast Sodium) 10 Mg Tablet, 1 TAB PO DAILY for 30 Days, #30 TAB 12/14/20 Fluticasone Furoate (Arnuity Ellipta) 200 Mcg Blst.w.dev, 1 PUFF PO DAILY for 30 Days, #1 EA 05/18/20 Fluoxetine Hcl (Fluoxetine HCl) 20 Mg Capsule, 20 MG PO DAILY for 30 Days, #30 CAP 03/20/19 Pembrolizumab (Keytruda) 100 Mg/4 Ml Vial, 200 MG IV ASDIRECTED, VIAL CHEMO CYCLE 3 WEEKS 03/01/19 Prochlorperazine Maleate (Prochlorperazine Maleate) 10 Mg Tablet, 10 MG PO Q6H PRN for NAUSEA OR VOMITING, TAB 03/01/19 Acetaminophen (Acetaminophen) 500 Mg Tablet, 1000 MG PO Q6H PRN for PAIN 02/04/19 Albuterol Sulf (Albuterol Sulfate) 2.5 Mg/3 Ml Vial.neb, 1 NEB INH QID PRN for SHORTNESS OF BREATH 02/04/19 Albuterol Sulfate (Ventolin Hfa) 18 Gm Hfa.aer.ad, 2 PUFFS INH QID PRN for SHORTNESS OF BREATH 02/04/19 Omeprazole (Omeprazole) 40 Mg Capsule.dr, 40 MG PO DAILY 02/04/19 Umeclidinium [place] (Incruse Ellipta) 62.5 Mcg Blst.w.dev, 1 PUFF INH DAILY 02/04/19 Discontinued Reported Medications Irbesartan (Irbesartan) 150 Mg Tablet, 75 MG PO BID 5/28/19 Review of Systems Review of Systems Constitutional: Denies: Chills, Fever, Fatigue, Weight Loss Eyes: Denies: Pain HEENT: Denies: Head Aches Skin: Denies: Rash Pulmonary: Reports: Dyspnea; Denies: Cough, Pleuritic Chest Pain Cardiovascular: Denies: Chest Pain, Edema Gastrointestinal: Denies: Abdominal Pain Hematologic: Denies: Bruising Musculoskeletal: Denies: Neck pain, Back pain, Midthoracic pain Neurological: Denies: Weakness, Numbness Psych: Reports: Mood Normal Physical Examination Vital Signs Wt 134 lbs T 98.2 P 109 RR 20 BP 154/81 O2 95% Pain 0 Fatigue 0 General Exam: Positive: Alert, Cooperative, No Acute Distress Eye Exam: Positive: PERRLA, EOMI ENT EXAM: Positive: Atraumatic Neck Exam: Positive: Supple Chest Exam: Positive: Clear to auscultation, Rales (Right mid-upper intermittent) Heart Exam: Positive: Rate Normal, Regular Rhythm Abdomen Exam: Positive: Soft; Negative: Tenderness Extremity Exam: Negative: Edema Skin Exam: Positive: Nl turgor and temperature Neuro Exam: Positive: Normal Gait, Normal Speech, Cranial Nerves 3-12 NL Psych Exam: Positive: Mental status NL Diagnostic and Laboratory Diagnostic Review Radiologic images, relevant labs and pathology reports were personally reviewed and discussed with Ms. Arias. Assessment and Plan Impression Assessment Ms. 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 She experienced a radiographic/metabolic CR to chemoimmunotherapy and is maintained on keytruda monotherapy presently. Recently she has experienced progression in a single RUL nodule, which is PET avid but not amenable to biopsy as it abuts the pulmonary artery. She completed SBRT to this nodule 55 Gy in 5 fractions on 09/17/20. She is doing well. On her CT scan the treated lesion is smaller, and there are no additional concerning nodules. There is distal to the treated lesion along the bronchus intermedius a new area of wedge shaped consolidation which is associated with hazy interstitial changes concerning for treatment related atelectasis and fibrosis, respectively. The less than likely alternative of a new lung mass was also broached in the report. In addition on my exam today she has crackles corresponding to the RUL and RML marie which would more aptly fit with atelectasis than new tumor. We discussed that out of an abundance of caution it would be prudent to order another [address] chest to verify these findings. As she is not symptomatic from the fibrosis and also on active immunotherapy, I would not give her empiric steroids. She agreed to the short interval scan. If things remain stable on the next CT, then I will defer subsequent imaging to Dr. Montanez. Performance Status ECOG [address] chest in 3 months Ms. Arias was encouraged to call with questions or concerns in the interim period. Billing Statement Total time of [26] minutes was spent preparing for the visit [2], obtaining HPI [3], examining the patient [4], reviewing diagnostic tests [4], discussing management options [5], coordinating care [1], and writing this note [7]. DAYDAY COLBY MD Dec 22, 2020 13:32
== END ==
LOC: M ONCR 12:25
PROVIDERS: ATTEND General Practice
DX: C34.11 Malignant neoplasm of upper lobe, right bronchus or lung (principal)

== ENCOUNTER → 2021-03-16 | Outpatient (CLI) | payer MEDICARE ==
[~2021-03-16] MED LIST changes: +COVI30VI IM; +GASTROGRAFIN SOLUTION 30ML (Q9963) As Ordered ONE; +ISOVUE-370 76% 100ML VIAL As Ordered ONE
--- NOTE | 2021-03-16 14:20 | REP ---
INDICATION: LUNG CANCER. COMPARISON: Multiple the latest 12/16/2020 TECHNIQUE: Standard helical technique after the intravenous administration of 100 cc Isovue 370 and oral bowel preparatory contrast administration. FINDINGS: The liver, gallbladder, spleen, pancreas, adrenal glands, and kidneys are unchanged. The abdominal aorta and para-aortic regions are unchanged. Note is again made of multiple hepatic cysts and nodular enhancement of the left adrenal gland. The adrenal gland enhancement has been stable from at least the 06/18/2019 exam. There is no free fluid or free air. There is no evidence of a mass or adenopathy. There is no significant change in appearance of the osseous structures. IMPRESSION: No evidence of acute disease. Stable findings as described above. <Electronically signed by Hi Newberry > 03/16/21 [id number]
== END ==
LOC: M RAD 11:56
PROVIDERS: ATTEND Internal Medicine Medical Oncology
DX: C34.90 Malignant neoplasm of unspecified part of unspecified bronchus or lung (principal)

== ENCOUNTER → 2021-03-16 | Outpatient (CLI) | payer MEDICARE ==
[~2021-03-16] MED LIST changes: -GASTROGRAFIN SOLUTION 30ML (Q9963) As Ordered ONE; -ISOVUE-370 76% 100ML VIAL As Ordered ONE
--- NOTE | 2021-03-16 14:19 | REP ---
INDICATION: SBRT SERVALANCE LUNG NODULE LUNG CA COMPARISON: Multiple latest 12/16/2020 TECHNIQUE: Standard helical technique after the intravenous administration of 100 cc Isovue 370. FINDINGS: There is enhancing mediastinal and right hilar adenopathy. There is no left hilar adenopathy. There are no pleural or pericardial effusions. There is an air-fluid level seen in the esophagus. Evaluation of the osseous structures shows no significant change from prior exams. Evaluation of the lung marie shows a large right upper lobe masslike opacity from periphery to hilum measuring approximately 5.9 by 7 by 1.8 cm. This represents a significant change compared to the prior exam. There is stable biapical pleuroparenchymal scarring and emphysematous changes. There is no evidence of significant change seen the osseous structures. IMPRESSION: 1. New masslike opacity in the right upper lobe as described above. 2. Enhancing adenopathy. 3. Chronic lung field changes as described above. 4. Other findings as described above. <Electronically signed by Hi Newberry > 03/16/21 [id number]
== END ==
LOC: M RAD 11:53
PROVIDERS: ATTEND General Practice
DX: C34.11 Malignant neoplasm of upper lobe, right bronchus or lung (principal); R91.8 Other nonspecific abnormal finding of lung field
CPT/HCPCS: 71260; 74177; Q9963; Q9967

== ENCOUNTER → 2021-03-23 | Outpatient (CLI) | payer MEDICARE | LOC: M ONCR 14:29 | PROVIDERS: ATTEND Radiology Radiation Oncology | DX: C34.11 Malignant neoplasm of upper lobe, right bronchus or lung (principal); Z92.21 Personal history of antineoplastic chemotherapy ==

== ENCOUNTER → 2021-04-16 | Outpatient (CLI) | payer MEDICARE ==
[~2021-04-16] MED LIST changes: +ACET-716 PO; +FLUO-96 PO; -FLUO20CA20 PO; -MONT10TA10 PO; +MONT10TA97 PO; -OMEP-221 PO; +OMEP40CA5 PO; -PROC10TA4 PO; +PROC10TA5 PO
== END ==
LOC: M LABSMTC 11:30
PROVIDERS: ATTEND Anesthesiology
DX: Z20.828 Contact with and (suspected) exposure to other viral communicable diseases (principal); Z11.59 Encounter for screening for other viral diseases

== ENCOUNTER 2021-04-21 09:57 | Day surgery (SDC) | payer MEDICARE ==
[~2021-04-21] VITALS: Ht 157.5 cm; Wt 59.4 kg
[~2021-04-21 09:57] MED LIST changes: -ACET-716 PO; -FLUO-96 PO; +FLUO20CA20 PO; +MONT10TA10 PO; -MONT10TA97 PO; +NS 1,000 ML IV ONE; +OMEP-221 PO; -OMEP40CA5 PO; +PROC10TA4 PO; -PROC10TA5 PO
[2021-04-21] MEDS ORDERED: LIDOCAINE 2% 100MG/5ML SDV (FOR ANES.) As Ordered ONE (12:06)
[2021-04-21] MEDS ORDERED: fentaNYL 100 MCG/2 ML INJECTION (J3010) As Ordered ONE (12:06)
[2021-04-21] MEDS ORDERED: propofoL 200 MG/20 ML VIAL As Ordered ONE ×2 (12:06→12:54)
[2021-04-21] MEDS ORDERED: METOPROLOL 5 MG/5 ML VIAL As Ordered ONE (12:32)
--- NOTE | 2021-04-21 13:24 | ROOR ---
Patient Name: Yuli Arias Procedure Date: 04/21/2021 12:04 PM Date of : 1950 Age: 70 Room: [facility] Gender: Female Note Status: Finalized Procedure: Upper GI endoscopy Indications: Iron deficiency anemia Providers: Bonifacio Harper MD Referring MD: Basia Kelly DO Requesting Provider: Medicines: Monitored Anesthesia Care Complications: No immediate complications. Procedure: Pre-Anesthesia Assessment: - Prior to the procedure, a History and Physical was performed, and patient medications and allergies were reviewed. The patient is competent. The risks and benefits of the procedure and the sedation options and risks were discussed with the patient. All questions were answered and informed consent was obtained. Patient identification and proposed procedure were verified by the physician, the nurse and the anesthesiologist in the procedure room. Mental Status Examination: alert and oriented. Airway Examination: normal oropharyngeal airway and neck mobility. Respiratory Examination: clear to auscultation. CV Examination: normal. Prophylactic Antibiotics: The patient does not require prophylactic antibiotics. Prior Anticoagulants: The patient has taken no previous anticoagulant or antiplatelet agents. ASA Grade Assessment: III - A patient with severe systemic disease. After reviewing the risks and benefits, the patient was deemed in satisfactory condition to undergo the procedure. The anesthesia plan was to use monitored anesthesia care (MAC). Immediately prior to administration of medications, the patient was re-assessed for adequacy to receive sedatives. The heart rate, respiratory rate, oxygen saturations, blood pressure, adequacy of pulmonary ventilation, and response to care were monitored throughout the procedure. The physical status of the patient was re-assessed after the procedure. The Endoscope was introduced through the mouth, and advanced to the second part of duodenum. The upper GI endoscopy was accomplished without difficulty. The patient tolerated the procedure well. Findings: The examined esophagus was normal. A small hiatal hernia was present. Two small angioectasias with bleeding were found in the gastric body and in the gastric antrum. Coagulation for hemostasis using argon plasma at 0.8 liters/minute and 35 birch was successful. Estimated blood loss was minimal. Three 5 to 8 mm angioectasias without bleeding were found in the duodenal bulb, in the second portion of the duodenum and in the third portion of the duodenum. Coagulation for hemostasis using argon plasma at 0.8 liters/minute and 20 birch was successful. For hemostasis, one hemostatic clip was successfully placed. There was no bleeding at the end of the procedure. Impression: - Normal esophagus. - Small hiatal hernia. - Two bleeding angioectasias in the stomach. Treated with argon plasma coagulation (APC). - Three non-bleeding angioectasias in the duodenum. Treated with argon plasma coagulation (APC). Clip was placed. - No specimens collected. Recommendation: - Patient has a contact number available for emergencies. The signs and symptoms of potential delayed complications were discussed with the patient. Return to normal activities tomorrow. Written discharge instructions were provided to the patient. - Clear liquid diet today, then advance as tolerated to high fiber diet. - Continue present medications. - Recommend acid suppression medication for 6 weeks. - Return to GI clinic in [facility] (address [address], [address], [place] [address]) in 4 -- 6 weeks. Please call GI clinic @ [phone] for apppointment date and time. - Check CBC, serum iron , transferrin and ferritin levels (fasting labs) in 2 months. - Return to primary care physician. Procedure Code(s): --- Professional --- 34019, Esophagogastroduodenoscopy, flexible, transoral; with control of bleeding, any method Diagnosis Code(s): --- Professional --- K44.9, Diaphragmatic hernia without obstruction or gangrene K31.811, Angiodysplasia of stomach and duodenum with bleeding D50.9, Iron deficiency anemia, unspecified CPT copyright 2019 [employer]. All rights reserved. The codes documented in this report are preliminary and upon publications production supervisor review may be revised to meet current compliance requirements. Bonifacio Harper MD Bonifacio Harper MD 04/21/2021 1:23:51 PM Electronically signed by Bonifacio Harper MD Number of Addenda: 0 Note Initiated On: 04/21/2021 12:04 PM Estimated Blood Loss: Estimated blood loss was minimal.
--- NOTE | 2021-04-21 13:35 | ROOR ---
Patient Name: Yuli Arias Procedure Date: 04/21/2021 12:20 PM Date of : 1950 Age: 70 Room: [facility] Gender: Female Note Status: Finalized Procedure: Colonoscopy Indications: Iron deficiency anemia Providers: Bonifacio Harper MD Referring MD: Basia Kelly DO Requesting Provider: Medicines: Monitored Anesthesia Care Complications: No immediate complications. Procedure: Pre-Anesthesia Assessment: - Prior to the procedure, a History and Physical was performed, and patient medications and allergies were reviewed. The patient is competent. The risks and benefits of the procedure and the sedation options and risks were discussed with the patient. All questions were answered and informed consent was obtained. Patient identification and proposed procedure were verified by the physician, the nurse and the anesthesiologist in the procedure room. Mental Status Examination: alert and oriented. Airway Examination: normal oropharyngeal airway and neck mobility. Respiratory Examination: clear to auscultation. CV Examination: normal. Prophylactic Antibiotics: The patient does not require prophylactic antibiotics. Prior Anticoagulants: The patient has taken no previous anticoagulant or antiplatelet agents. ASA Grade Assessment: II - A patient with mild systemic disease. After reviewing the risks and benefits, the patient was deemed in satisfactory condition to undergo the procedure. The anesthesia plan was to use monitored anesthesia care (MAC). Immediately prior to administration of medications, the patient was re-assessed for adequacy to receive sedatives. The heart rate, respiratory rate, oxygen saturations, blood pressure, adequacy of pulmonary ventilation, and response to care were monitored throughout the procedure. The physical status of the patient was re-assessed after the procedure. The Colonoscope was introduced through the anus and advanced to the terminal ileum, with identification of the appendiceal orifice and IC valve. The colonoscopy was performed without difficulty. The patient tolerated the procedure well. Scope insertion time was 2 minutes. Scope withdrawal time was 9 minutes. The total duration of the procedure was 12 minutes. Findings: The perianal and digital rectal examinations were normal. The terminal ileum appeared normal. A 8 mm polyp was found in the ascending colon. The polyp was sessile. The polyp was removed with a hot snare. Resection and retrieval were complete. For hemostasis, two hemostatic clips were successfully placed. There was no bleeding at the end of the procedure. Three medium-sized patchy angioectasias without bleeding were found in the ascending colon and in the cecum. Coagulation for hemostasis using argon plasma at 0.8 liters/minute and 20 birch was successful. Multiple small and large-mouthed diverticula were found in the sigmoid colon. There was no evidence of diverticular bleeding. Non-bleeding external and internal hemorrhoids were found during retroflexion. The hemorrhoids were medium-sized. Impression: - The examined portion of the ileum was normal. - One 8 mm polyp in the ascending colon, removed with a hot snare. Resected and retrieved. Clips were placed. - Three non-bleeding colonic angioectasias. Treated with argon plasma coagulation (APC). - Moderate diverticulosis in the sigmoid colon. There was no evidence of diverticular bleeding. - Non-bleeding external and internal hemorrhoids. Recommendation: - Patient has a contact number available for emergencies. The signs and symptoms of potential delayed complications were discussed with the patient. Return to normal activities tomorrow. Written discharge instructions were provided to the patient. - Clear liquid diet today, then advance as tolerated to high fiber diet. - Continue present medications. - Await pathology results. - Repeat colonoscopy in 3 years for surveillance based on pathology results. - Return to GI clinic in [facility] (address [address] [place] [address], [address], [place], [facility]) in 4 -- 6 weeks. Please call GI clinic @ [phone] for apppointment date and time. - Follow the recommendations as per the other procedure note. - Return to primary care physician. Procedure Code(s): --- Professional --- 11951, 59, Colonoscopy, flexible; with control of bleeding, any method 17028, Colonoscopy, flexible; with removal of tumor(s), polyp(s), or other lesion(s) by snare technique Diagnosis Code(s): --- Professional --- K64.8, Other hemorrhoids K63.5, Polyp of colon K55.20, Angiodysplasia of colon without hemorrhage D50.9, Iron deficiency anemia, unspecified K57.30, Diverticulosis of large intestine without perforation or abscess without bleeding CPT copyright 2019 [employer]. All rights reserved. The codes documented in this report are preliminary and upon remote medical coder review may be revised to meet current compliance requirements. Bonifacio Harper MD Bonifacio Harper MD 04/21/2021 1:35:32 PM Electronically signed by Bonifacio Harper MD Number of Addenda: 0 Note Initiated On: 04/21/2021 12:20 PM Estimated Blood Loss: Estimated blood loss was minimal.
[2021-04-21 13:51] VITALS: BP 134/63
== END 2021-04-21 13:51 | disposition home or self-care (01) ==
LOC: M OPP 09:57
PROVIDERS: ATTEND Internal Medicine Gastroenterology
DX: D12.6 Benign neoplasm of colon, unspecified (principal); K55.20 Angiodysplasia of colon without hemorrhage; K64.8 Other hemorrhoids; D50.9 Iron deficiency anemia, unspecified; K44.9 Diaphragmatic hernia without obstruction or gangrene; K31.811 Angiodysplasia of stomach and duodenum with bleeding; Z79.899 Other long term (current) drug therapy; Z88.8 Allergy status to other drugs, medicaments and biological substances; Z85.118 Personal history of other malignant neoplasm of bronchus and lung; Z92.21 Personal history of antineoplastic chemotherapy; Z92.3 Personal history of irradiation
CPT/HCPCS: 43255; 45382; 88305; J3010

== ENCOUNTER → 2021-06-20 | Outpatient (CLI) | payer MEDICARE ==
[~2021-06-20] MED LIST changes: -NS 1,000 ML IV ONE
--- NOTE | 2021-06-21 10:34 | REP ---
INDICATION: RESTAGING R UPPER LOBE LUNG CA 34.11. COMPARISON: PET-CT of 06/07/2020, CT chest abdomen pelvis 03/16/2021. TECHNIQUE: After the intravenous administration of 8.99 mCi of FDG 18 triplane whole-body PET-CT was performed from the skull base to the mid thigh. FINDINGS: There is been a significant increase in the degree of hypermetabolism and in the size of the abnormal masslike density seen in the right lung upper lobe when compared to the prior PET-CT. By CT, the density is somewhat platelike having an AP measurement of approximately 6.7 cm at its greatest which is pleural based and having a width of approximately 5.1 cm which is from the pleura to and abutting the right main pulmonary artery while it is superior to inferior measurement is approximately 1.3 cm in its greatest. The prior PET-CT showed this region to be of focal hypermetabolism with a maximal SUV value of 7.35 and a maximal dimension of 1.3 cm.. Today it is greatest SUV value is 6.42. No other areas of abnormal hypermetabolic activity are seen in the neck, chest, abdomen, or pelvis. IMPRESSION: Abnormal intrathoracic hypermetabolic activity and parenchymal density as described above. History given to me is that the patient completed radiation therapy to this region 09/17/2020. Due to the size, configuration, and degree of hypermetabolism the finding likely represents post radiation change. Close follow-up and clinical correlation, however, is recommended. <Electronically signed by Hi Newberry > 06/21/21 [id number]
== END ==
LOC: M PLARAD 11:33
PROVIDERS: ATTEND General Practice
DX: C34.11 Malignant neoplasm of upper lobe, right bronchus or lung (principal)
CPT/HCPCS: 78815; A9552

== ENCOUNTER → 2021-06-29 | Outpatient (CLI) | payer MEDICARE ==
--- NOTE | 2021-06-29 16:08 | RADONC ---
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 She experienced a radiographic/metabolic CR to chemoimmunotherapy and is maintained on keytruda monotherapy presently. Recently she has experienced progression in a single RUL nodule, which is PET avid but not amenable to biopsy as it abuts the pulmonary artery. She completed SBRT to this nodule 55 Gy in 5 fractions on 09/17/20. Diagnosis/Treatment History Oncologic History December 2018 diagnosed with adenocarcinoma of the RUL and mediastinum. Staging PET-CT 01/29/19 showing pleural metastases and effusion February 2019 suffered a small PE 02/18/19 Started Carbo/pem/pem, suffered Grade 4 skin toxicity, GI bleed, and nausea. Keytruda was held 04/03/19-05/23/19 Carbo/taxol for 3 cycles 06/18/19 CT scans with no radiographic disease in chest 06/19/19-present Resumed maintenance keytruda 05/21/20 CT chest with RUL central lung lesion ~3 cm, new 06/07/20 Avidity of lesion demonstrated, no distant disease 06/23/20 Pulmonology eval, no role for biopsy d/t proximity to the pulmonary arteries on the right. 09/13/20-09/17/20 SBRT to the RUL nodule 55 Gy in 5 fractions 12/16/20 CT chest RUL nodule smaller, RML post radiation atelectasis and mild fibrosis 03/16/21 CT chest evolving post-radiation changes 06/20/21 PET-CT moderate hypermetabolism and associated changes suggestive of RT fibrosis/pneumonitis Interval History Yuli reports some mild increased VELOZ and cough in recent months. She is still able to do all of her ADLs, just with lower exercise tolerance. She continues on Keytruda. Her appetite and weight are stable and she has no chest pain. 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 Social History: 30 pack year smoking history quit 2018 Does not drink Allergies / Meds Allergies: Coded Allergies: albuterol (Verified Adverse Reaction, Mild, nausea, 03/01/19) Home Meds Active Scripts Triamcinolone Acet (Triamcinolone Acetonide 0.1% Crm) 80 Gm Cream..g., 1 APLCT TOP BID PRN for RASH, #80 GRAMS 2 Refills APPLY TO AREAS OF RASH Prov:ENEIDA MONTANEZ MD FACP 03/02/21 Ondansetron (Ondansetron Odt) 8 Mg Tab.rapdis, 8 MG PO Q6H PRN for NAUSEA for 15 Days, #30 TAB 6 Refills Prov:Katerina Brandon MD 07/16/19 Reported Medications Covid-19 Vacc, Mrna(BlitzLocal)/Pf ([employer] Covid19 Vacc (Unapprov)) 30 Mcg/0.3 Ml Vial, 30 MCG IM, VIAL 01/25/21 Irbesartan (Irbesartan) 150 Mg Tablet, 1 TAB PO DAILY 12/22/20 Fluticasone Propionate (Flonase Allergy Relief) 9.9 Ml [place].susp, 50 MCG NA, SPR 12/14/20 Montelukast Sodium (Montelukast Sodium) 10 Mg Tablet, 1 TAB PO DAILY for 30 Days, #30 TAB 12/14/20 Fluticasone Furoate (Arnuity Ellipta) 200 Mcg Blst.w.dev, 1 PUFF PO DAILY for 30 Days, #1 EA 05/18/20 Fluoxetine Hcl (Fluoxetine HCl) 20 Mg Capsule, 20 MG PO DAILY for 30 Days, #30 CAP 03/20/19 Pembrolizumab (Keytruda) 100 Mg/4 Ml Vial, 200 MG IV ASDIRECTED, VIAL CHEMO CYCLE 3 WEEKS 03/01/19 Prochlorperazine Maleate (Prochlorperazine Maleate) 10 Mg Tablet, 10 MG PO Q6H PRN for NAUSEA OR VOMITING, TAB 03/01/19 Acetaminophen (Acetaminophen) 500 Mg Tablet, 1000 MG PO Q6H PRN for PAIN 02/04/19 Albuterol Sulf (Albuterol Sulfate) 2.5 Mg/3 Ml Vial.neb, 1 NEB INH QID PRN for SHORTNESS OF BREATH 02/04/19 Albuterol Sulfate (Ventolin Hfa) 18 Gm Hfa.aer.ad, 2 PUFFS INH QID PRN for SHORTNESS OF BREATH 02/04/19 Omeprazole (Omeprazole) 40 Mg Capsule.dr, 40 MG PO DAILY 02/04/19 Umeclidinium [place] (Incruse Ellipta) 62.5 Mcg Blst.w.dev, 1 PUFF INH DAILY 02/04/19 Review of Systems Review of Systems Constitutional: Reports: Fatigue; Denies: Fever, Night Sweats, Weight Loss Eyes: Denies: Pain HEENT: Denies: Head Aches Skin: Denies: Rash Pulmonary: Reports: Dyspnea, Cough; Denies: Pleuritic Chest Pain Cardiovascular: Denies: Chest Pain, Edema Gastrointestinal: Denies: Abdominal Pain Hematologic: Denies: Bruising, Bleeding Excessively Endocrine: Denies: Cold Intolerance Musculoskeletal: Denies: Neck pain, Back pain Neurological: Denies: Weakness, Numbness Psych: Reports: Mood Normal Physical Examination Vital Signs Wt 131 lbs T 97.2 P 105 RR 18 BP 142/88 O2 93% Pain 0 Fatigue 0 General Exam: Alert, Cooperative, No Acute Distress Eye Exam: PERRLA, EOMI ENT EXAM: Atraumatic Neck Exam: Supple Chest Exam: Clear to auscultation, Rhonchi (Right mid and lower lungs) Heart Exam: Rate Normal, Regular Rhythm Abdomen Exam: Soft Extremity Exam: Negative: Edema Skin Exam: Nl turgor and temperature Neuro Exam: Normal Gait, Normal Speech, Cranial Nerves 3-12 NL Psych Exam: Mental status NL Diagnostic and Laboratory Diagnostic Review Radiologic images, relevant labs and pathology reports were personally reviewed and discussed with Ms. Arias. Assessment and Plan Impression Assessment Ms. 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 She experienced a radiographic/metabolic CR to chemoimmunotherapy and is maintained on keytruda monotherapy presently. Recently she has experienced progression in a single RUL nodule, which is PET avid but not amenable to biopsy as it abuts the pulmonary artery. She completed SBRT to this nodule 55 Gy in 5 fractions on 09/17/20. Yuli has some clinical symptoms of radiation pneumonitis, these however are mild. As she is on Keytruda we agreed to withhold steroids unless her VELOZ worsens. With respect to the PET-CT I think the pattern of uptake and parenchymal changes are most consistent with pneumonitis and fibrosis in this case CTCAE grade 2. I went over the images with her in detail. I do not see evidence of residual nodularity or de reed lesions suspicious for recurrence. In the meantime another [address] chest would be appropriate. Performance Status ECOG 1 Plan [address] chest Ms. Arias was encouraged to call with questions or concerns in the interim period. Billing Statement Total time of [25] minutes was spent preparing for the visit [2], obtaining HPI [4], examining the patient [4], reviewing diagnostic tests [6], discussing management options [6], coordinating care [1], and writing this note [6]. DAYDAY COLBY MD Jun 29, 2021 16:08
== END ==
LOC: M ONCR 15:00
PROVIDERS: ATTEND General Practice
DX: C34.11 Malignant neoplasm of upper lobe, right bronchus or lung (principal); R06.09 Other forms of dyspnea; Z79.899 Other long term (current) drug therapy; Z87.891 Personal history of nicotine dependence; Z88.8 Allergy status to other drugs, medicaments and biological substances; Z92.21 Personal history of antineoplastic chemotherapy; Z92.25 Personal history of immunosuppression therapy; Z92.3 Personal history of irradiation

== ENCOUNTER → 2021-09-28 | Outpatient (CLI) | payer MEDICARE ==
[~2021-09-28] MED LIST changes: +FLUO-96 PO; -FLUO20CA20 PO; -MONT10TA10 PO; +MONT10TA97 PO; -OMEP-221 PO; +OMEP40CA5 PO; -PROC10TA4 PO; +PROC10TA5 PO
== END ==
LOC: M RAD 11:03
PROVIDERS: ATTEND General Practice
DX: C34.11 Malignant neoplasm of upper lobe, right bronchus or lung (principal); J43.9 Emphysema, unspecified; K76.89 Other specified diseases of liver
CPT/HCPCS: 71260; 74177; Q9963; Q9967

== ENCOUNTER → 2021-10-05 | Outpatient (CLI) | payer MEDICARE | LOC: M ONCR 14:24 | PROVIDERS: ATTEND General Practice | DX: C34.11 Malignant neoplasm of upper lobe, right bronchus or lung (principal); Z87.891 Personal history of nicotine dependence; Z92.3 Personal history of irradiation; Z92.21 Personal history of antineoplastic chemotherapy; Z88.1 Allergy status to other antibiotic agents; Z79.899 Other long term (current) drug therapy ==

== ENCOUNTER 2021-11-23 06:02 | Day surgery (SDC) | payer MEDICARE ==
[~2021-11-23] VITALS: Ht 157.5 cm; Wt 58.7 kg
[~2021-11-23 06:02] MED LIST changes: +ACET-716 PO; +ALBUTEROL SULFATE 2.5 MG/0.5 ML INH NEB SOLN INH ONE; +LIDOCAINE 4% INJ 5ML AMP INH ONE; +LR 1,000 ML IV ONE
[2021-11-23] MEDS ORDERED: THROMBIN SOLN 5,000 UNITS VIAL As Ordered ONE (07:19)
[2021-11-23] MEDS ORDERED: EPINEPHrine 1MG/10ML SYRINGE 1.5IN As Ordered ONE (07:20)
[2021-11-23] MEDS ORDERED: CETACAINE SPRAY 5GM As Ordered ONE (07:20)
[2021-11-23] MEDS ORDERED: LIDOCAINE 2% 100MG/5ML SDV (FOR ANES.) As Ordered ONE (07:25)
[2021-11-23] MEDS ORDERED: ROCURONIUM BROMIDE 50 MG/5 ML VIAL As Ordered ONE (07:25)
[2021-11-23] MEDS ORDERED: propofoL 200 MG/20 ML VIAL As Ordered ONE (07:25)
[2021-11-23] MEDS ORDERED: fentaNYL 100 MCG/2 ML INJECTION As Ordered ONE (07:25)
[2021-11-23] MEDS ORDERED: MIDAZOLAM INJ 2MG/2ML VIAL (J2250 PER 1MG) As Ordered ONE (07:25)
[2021-11-23] MEDS ORDERED: dexameTHASONE 4 MG/ML 1ML VIAL (J1100 PER 1MG) As Ordered ONE (07:25)
[2021-11-23] MEDS ORDERED: PHENYLephrine 500MCG 5ML (100MCG/ML) SYRINGE As Ordered ONE (08:11)
[2021-11-23] MEDS ORDERED: SUGAMMADEX SODIUM 500 MG/5 ML VIAL (BRIDION) As Ordered ONE (08:12)
[2021-11-23] MEDS ORDERED: ONDANSETRON 4MG/2ML VIAL As Ordered ONE (08:12)
[2021-11-23] MEDS ORDERED: oxyCODONE 5MG TAB PO PRN (08:50)
[2021-11-23] MEDS ORDERED: ONDANSETRON 4MG/2ML VIAL IV PRN (08:50)
[2021-11-23] MEDS ORDERED: LR 1,000 ML IV SCH (08:50)
[2021-11-23 09:50] VITALS: BP 149/68
== END 2021-11-23 10:14 | disposition home or self-care (01) ==
LOC: M SDC 06:02
PROVIDERS: ATTEND Internal Medicine Pulmonary Disease
DX: J44.9 Chronic obstructive pulmonary disease, unspecified (principal); J70.1 Chronic and other pulmonary manifestations due to radiation; Z85.118 Personal history of other malignant neoplasm of bronchus and lung; Z79.899 Other long term (current) drug therapy; Z87.891 Personal history of nicotine dependence; Z79.52 Long term (current) use of systemic steroids
CPT/HCPCS: 31623; 31624; 31628; 88104; 88108; 88305; 88313; 93005; J0171; J1100; J2250; J2370; J2405; J3010

== ENCOUNTER → 2022-02-14 | Outpatient (CLI) | payer MEDICARE ==
[~2022-02-14] MED LIST changes: +ALBU2.5V10 INH; -ALBU83IN INH; -ALBUTEROL SULFATE 2.5 MG/0.5 ML INH NEB SOLN INH ONE; +GABA-1171 PO; -LIDOCAINE 4% INJ 5ML AMP INH ONE; -LR 1,000 ML IV ONE
== END ==
LOC: M PLARAD 07:38
PROVIDERS: ATTEND Internal Medicine Medical Oncology
DX: C34.11 Malignant neoplasm of upper lobe, right bronchus or lung (principal)
CPT/HCPCS: 78815; A9552

== ENCOUNTER → 2022-06-21 | Outpatient (CLI) | payer MEDICARE ==
[~2022-06-21] MED LIST changes: +ASPI81CH33 PO; +ATOR1TAB21 PO; +GASTROGRAFIN SOLUTION 30ML (Q9963) As Ordered ONE; +ISOVUE-370 76% 100ML VIAL As Ordered ONE
== END ==
LOC: M RAD 08:34
PROVIDERS: ATTEND Nurse Practitioner
DX: D72.829 Elevated white blood cell count, unspecified (principal)
CPT/HCPCS: 71260; 74177; Q9963; Q9967

== ENCOUNTER → 2022-08-14 | Outpatient (CLI) | payer MEDICARE ==
[~2022-08-14] MED LIST changes: +BENA25CA4 PO; +DOCU100C16 PO; -GASTROGRAFIN SOLUTION 30ML (Q9963) As Ordered ONE; -ISOVUE-370 76% 100ML VIAL As Ordered ONE; +METH10TA PO
== END ==
LOC: M LABSMTC 11:00
PROVIDERS: ATTEND Anesthesiology
DX: Z01.812 Encounter for preprocedural laboratory examination (principal); Z20.822 Contact with and (suspected) exposure to COVID-19

== ENCOUNTER 2022-08-18 11:45 | Day surgery (SDC) | payer MEDICARE ==
[~2022-08-18] VITALS: Ht 154.9 cm; Wt 56.2 kg
[~2022-08-18 11:45] MED LIST changes: +NS 1,000 ML IV ONE
[2022-08-18] MEDS ORDERED: propofoL 200 MG/20 ML VIAL As Ordered ONE (12:54)
[2022-08-18 14:34] VITALS: BP 154/71
== END 2022-08-18 14:59 | disposition home or self-care (01) ==
LOC: M OPP 11:45
PROVIDERS: ATTEND Internal Medicine Gastroenterology
DX: K31.811 Angiodysplasia of stomach and duodenum with bleeding (principal); K55.20 Angiodysplasia of colon without hemorrhage; D62 Acute posthemorrhagic anemia; D50.9 Iron deficiency anemia, unspecified; Z79.02 Long term (current) use of antithrombotics/antiplatelets; Z79.51 Long term (current) use of inhaled steroids; Z79.899 Other long term (current) drug therapy; Z88.8 Allergy status to other drugs, medicaments and biological substances; Q27.33 Arteriovenous malformation of digestive system vessel; M79.7 Fibromyalgia; I10 Essential (primary) hypertension; J44.9 Chronic obstructive pulmonary disease, unspecified; E05.90 Thyrotoxicosis, unspecified without thyrotoxic crisis or storm; Z86.718 Personal history of other venous thrombosis and embolism; Z85.118 Personal history of other malignant neoplasm of bronchus and lung; Z92.21 Personal history of antineoplastic chemotherapy; Z92.3 Personal history of irradiation; Z87.891 Personal history of nicotine dependence

== ENCOUNTER → 2022-09-22 | Outpatient (CLI) | payer MEDICARE ==
[~2022-09-22] MED LIST changes: +GASTROGRAFIN SOLUTION 30ML As Ordered ONE; +ISOVUE-370 76% 100ML VIAL As Ordered ONE; -NS 1,000 ML IV ONE
== END ==
LOC: M RAD 13:32
PROVIDERS: ATTEND Nurse Practitioner
DX: C34.91 Malignant neoplasm of unspecified part of right bronchus or lung (principal)
CPT/HCPCS: 71260; 74177; Q9963; Q9967

== ENCOUNTER → 2022-10-24 | Outpatient (REF) | payer MEDICARE ==
[~2022-10-24] MED LIST changes: -GASTROGRAFIN SOLUTION 30ML As Ordered ONE; -ISOVUE-370 76% 100ML VIAL As Ordered ONE; +METH25TAB PO
[2022-10-24 13:43] LABS: HEMOGLOBIN 10.1 g/dl (12.0-15.5); MEAN CORPUSCULAR HEMOGLOBIN 27.6 pg (27.0-33.0); MEAN CORPUSCULAR HGB CONC 31.6 g/dl (32.0-36.5); MEAN CORPUSCULAR VOLUME 87.4 fl (80.0-96.0); PLATELET COUNT, AUTOMATED 482 10^3/uL (150-450); RED BLOOD COUNT 3.66 10^6/uL (4.00-5.40); WHITE BLOOD COUNT 6.2 10^3/uL (4.0-10.0)
[2022-10-24 14:09] LABS: PERCENT SATURATION 6.7 % (13.2-45.0)
== END ==
LOC: M LAB REF 13:20
PROVIDERS: ATTEND Physician Assistant Medical
DX: D50.9 Iron deficiency anemia, unspecified (principal)

== ENCOUNTER → 2023-01-09 | Outpatient (CLI) | payer MEDICARE ==
[~2023-01-09] MED LIST changes: +GASTROGRAFIN SOLUTION 30ML As Ordered ONE; +ISOVUE-370 76% 100ML VIAL As Ordered ONE; +PRED10TA2 PO
== END ==
LOC: M RAD 11:40
PROVIDERS: ATTEND Nurse Practitioner
DX: C34.90 Malignant neoplasm of unspecified part of unspecified bronchus or lung (principal)
CPT/HCPCS: 71260; 74177; Q9963; Q9967

== ENCOUNTER → 2023-04-26 | Outpatient (CLI) | payer MEDICARE ==
[~2023-04-26] MED LIST changes: +FLUO40CA PO; +GABA-282 PO; +ROSU40TA4 PO; +TOPR25TA PO
== END ==
LOC: M RAD 11:55
PROVIDERS: ATTEND Internal Medicine Medical Oncology
DX: C34.90 Malignant neoplasm of unspecified part of unspecified bronchus or lung (principal)
CPT/HCPCS: 71260; 74177; Q9963; Q9967

== ENCOUNTER → 2023-07-26 | Outpatient (CLI) | payer MEDICARE ==
[~2023-07-26] MED LIST changes: -EMEN150S IV; +FOSA150V36 IV
== END ==
LOC: M RAD 09:08
PROVIDERS: ATTEND Internal Medicine Medical Oncology
DX: C34.90 Malignant neoplasm of unspecified part of unspecified bronchus or lung (principal); Q44.6 Cystic disease of liver
CPT/HCPCS: 71260; 74177; Q9963; Q9967

== ENCOUNTER → 2023-10-12 | Outpatient (CLI) | payer MEDICARE ==
[~2023-10-12] MED LIST changes: +BUDE10.7 IH; -GASTROGRAFIN SOLUTION 30ML As Ordered ONE; +HYDR-3713 PO; +IRBE150T27 PO; -IRBE150T7 PO; -ISOVUE-370 76% 100ML VIAL As Ordered ONE; +ORAL0.1P MT; +[UNRECOGNIZED DRUG - CODE] IV; -[UNRECOGNIZED DRUG - CODE] IV
== END ==
LOC: M PLAIMG 13:26
PROVIDERS: ATTEND Internal Medicine Cardiovascular Disease
DX: I51.7 Cardiomegaly (principal); R06.2 Wheezing; I35.0 Nonrheumatic aortic (valve) stenosis

== ENCOUNTER 2023-11-19 11:51 | Emergency (ER) | payer MEDICARE ==
[2023-11-19] VITALS (8 sets, daily range): BP systolic 129–159; BP diastolic 60–74; TEMP 97.2–98.7; O2SAT 98–99
[~2023-11-19] VITALS: Ht 154.9 cm; Wt 68.1 kg
[~2023-11-19 11:51] MED LIST changes: +VITATAB54 PO
[2023-11-19 13:12] LABS: BASO # 0.1 10^3/uL (0.0-0.2); BASO % 0.3 % (0.0-1.0); EOS % 0.1 % (0.0-3.0); LYMPH # 0.3 10^3/uL (1.5-5.0); LYMPH % 2.2 % (24.0-44.0); MEAN CORPUSCULAR HEMOGLOBIN 31.1 pg (27.0-33.0); MEAN CORPUSCULAR HGB CONC 31.9 g/dl (32.0-36.5); MEAN CORPUSCULAR VOLUME 97.4 fl (80.0-96.0); MONO # 0.6 10^3/uL (0.0-0.8); MONO % 4.2 % (2.0-8.0); NEUTROPHILS # 13.1 10^3/uL (1.5-8.5); NEUTROPHILS % 91.8 % (36.0-66.0); PLATELET COUNT, AUTOMATED 340 10^3/uL (150-450); RED BLOOD COUNT 1.93 10^6/uL (4.00-5.40); WHITE BLOOD COUNT 14.3 10^3/uL (4.0-10.0)
[2023-11-19 13:18] LABS: HEMATOCRIT 18.8 % (36.0-47.0)
[2023-11-19 13:20] LABS: INR 0.93; PARTIAL THROMBOPLASTIN TIME 20.5 SECONDS (24.8-34.2); PROTHROMBIN TIME 12.2 SECONDS (12.5-14.5)
[2023-11-19 13:32] LABS: CALCIUM LEVEL 8.4 MG/DL (8.3-10.6); CK-MB VALUE MASS 3.8 NG/ML (<3.6); CREATININE FOR GFR 4.57 MG/DL (0.55-1.30); GLOMERULAR FILTRATION RATE 10.1 (>39); MB/CK RELATIVE INDEX 2.6 (< OR =4); POTASSIUM SERUM 3.2 MMOL/L (3.5-5.1)
[2023-11-19] MEDS ORDERED: D-40TAB2 PO (14:44)
[2023-11-19] MEDS ORDERED: ONDA8TAB8 PO (14:44)
[2023-11-19] MEDS ORDERED: HOME MED LIST COMPLETE! XX SCH (14:45)
[2023-11-19] MEDS: NS 500 ML IV ONE (14:52)
[2023-11-19] MEDS: PANTOPRAZOLE SODIUM 40 MG in D5W 50 ML IV SCH (16:54)
[2023-11-19] MEDS: PANTOPRAZOLE 40MG VIAL IV ONE (16:54)
[2023-11-19 16:55] LABS: CK-MB VALUE MASS 3.9 NG/ML (<3.6)
[2023-11-19 17:01] LABS: MB/CK RELATIVE INDEX 2.76 (< OR =4)
== END 2023-11-19 21:48 | disposition short-term general hospital (02) ==
LOC: M ED 11:51
DX: K92.2 Gastrointestinal hemorrhage, unspecified (principal); C34.90 Malignant neoplasm of unspecified part of unspecified bronchus or lung; D64.9 Anemia, unspecified; Q27.33 Arteriovenous malformation of digestive system vessel; R00.0 Tachycardia, unspecified; I10 Essential (primary) hypertension; E78.5 Hyperlipidemia, unspecified; K21.9 Gastro-esophageal reflux disease without esophagitis; J44.9 Chronic obstructive pulmonary disease, unspecified; Z86.711 Personal history of pulmonary embolism; Z87.891 Personal history of nicotine dependence; Z88.8 Allergy status to other drugs, medicaments and biological substances; Z79.52 Long term (current) use of systemic steroids; Z79.891 Long term (current) use of opiate analgesic; Z79.83 Long term (current) use of bisphosphonates; Z79.899 Other long term (current) drug therapy
CPT/HCPCS: 36430; 71045; 80048; 82550; 82553; 84484; 85025; 85610; 85730; 86850; 86900; 86901; 86920; 93005; 93041; 94760; 96361; 96365; 96366; 96375; 99285; C9113; P9016

== ENCOUNTER 2023-11-26 19:25 | Emergency (ER) | payer MEDICARE ==
[~2023-11-26] VITALS: Ht 154.9 cm; Wt 68.2 kg
[~2023-11-26 19:25] MED LIST changes: +D-40TAB2 PO
[2023-11-26 20:11] LABS: HEMATOCRIT 27.9 % (36.0-47.0); HEMOGLOBIN 9.8 g/dl (12.0-15.5); MEAN CORPUSCULAR HGB CONC 35.1 g/dl (32.0-36.5); MEAN CORPUSCULAR VOLUME 88.3 fl (80.0-96.0); PLATELET COUNT, AUTOMATED 432 10^3/uL (150-450); RED BLOOD COUNT 3.16 10^6/uL (4.00-5.40); WHITE BLOOD COUNT 10.6 10^3/uL (4.0-10.0)
[2023-11-26 20:25] LABS: INR 0.89; PROTHROMBIN TIME 11.8 SECONDS (12.5-14.5)
[2023-11-26 20:29] LABS: BILIRUBIN,TOTAL 0.4 MG/DL (0.3-1.2); CALCIUM LEVEL 8.8 MG/DL (8.3-10.6); CREATININE FOR GFR 1.65 MG/DL (0.55-1.30); GLOMERULAR FILTRATION RATE 32.6 (>39); MAGNESIUM LEVEL 1.6 MG/DL (1.8-2.4); POTASSIUM SERUM 3.3 MMOL/L (3.5-5.1); TOTAL PROTEIN 5.7 G/DL (5.7-8.2)
[2023-11-26 20:32] LABS: THYROID STIMULATING HORMONE 1.422 uIU/ML (0.55-4.78)
[2023-11-26 21:07] VITALS: TEMP 97
[2023-11-26] MEDS: PROMETHAZINE 25MG/ML 1ML VIAL IV ONE (21:45)
[2023-11-26] MEDS: NS 1,000 ML IV ONE (21:45)
[2023-11-26] MEDS: MAG SULF 1GM/100ML (MAG RUN) 1 GM in IV 1 EA IV ONE (21:46)
[2023-11-26] MEDS ORDERED: ISOVUE-370 76% 100ML VIAL As Ordered ONE (21:52)
[2023-11-27] MEDS: POTASSIUM CHLORIDE 10MEQ SR TABLET PO ONE (00:05)
[2023-11-27 00:15] VITALS: BP 133/67; O2SAT 98
[2023-11-27] MEDS ORDERED: PROM25TA12 PO (01:09)
== END 2023-11-27 01:17 | disposition home or self-care (01) ==
LOC: M ED 19:25
DX: R10.9 Unspecified abdominal pain (principal); I10 Essential (primary) hypertension; J44.9 Chronic obstructive pulmonary disease, unspecified; E78.5 Hyperlipidemia, unspecified; C34.90 Malignant neoplasm of unspecified part of unspecified bronchus or lung; Z88.8 Allergy status to other drugs, medicaments and biological substances; Z79.52 Long term (current) use of systemic steroids; Z79.83 Long term (current) use of bisphosphonates; Z79.899 Other long term (current) drug therapy; Z79.891 Long term (current) use of opiate analgesic
CPT/HCPCS: 71275; 74177; 80053; 83735; 84443; 85027; 85610; 86850; 86900; 86901; 93005; 96374; 96375; 99284; J2550; J3475; Q9967

== ENCOUNTER 2023-12-05 08:06 | Inpatient (IN) | payer MEDICARE ==
[~2023-12-05] VITALS: Ht 157.5 cm; Wt 67.7 kg
[~2023-12-05 08:06] MED LIST changes: +PROM25TA12 PO
[2023-12-05 09:27] LABS: VENOUS HCO3 28.6 MMOL/L (23.0-27.0); VENOUS O2 SATURATION 88.5 % (60.0-80.0); VENOUS PARTIAL PRESSURE O2 52.7 mmHg (30.0-50.0); VENOUS PH 7.494 UNITS (7.330-7.430); VENOUS STANDARD HCO3 28.8 MMOL/L; VENOUS TOTAL CO2 29.7 MMOL/L (24.0-28.0)
[2023-12-05 09:41] LABS: BASO # 0.1 10^3/uL (0.0-0.2); BASO % 0.3 % (0.0-1.0); EOS % 0.1 % (0.0-3.0); HEMATOCRIT 25.6 % (36.0-47.0); HEMOGLOBIN 8.6 g/dl (12.0-15.5); LYMPH # 0.6 10^3/uL (1.5-5.0); LYMPH % 3.2 % (24.0-44.0); MEAN CORPUSCULAR HGB CONC 33.6 g/dl (32.0-36.5); MEAN CORPUSCULAR VOLUME 95.2 fl (80.0-96.0); MONO # 1.3 10^3/uL (0.0-0.8); MONO % 7.2 % (2.0-8.0); NEUTROPHILS # 16.3 10^3/uL (1.5-8.5); NEUTROPHILS % 88.2 % (36.0-66.0); PLATELET COUNT, AUTOMATED 424 10^3/uL (150-450); RED BLOOD COUNT 2.69 10^6/uL (4.00-5.40); WHITE BLOOD COUNT 18.5 10^3/uL (4.0-10.0)
[2023-12-05 09:53] LABS: INR 1.01; PARTIAL THROMBOPLASTIN TIME 27.8 SECONDS (24.8-34.2)
[2023-12-05] MEDS: NS 1,980 ML in IV 1 EA IV ONE (10:05)
[2023-12-05 10:10] LABS: PROCALCITONIN 39.79 ng/ml
[2023-12-05 10:15] LABS: ALBUMIN 2.9 G/DL (3.2-5.2); BILIRUBIN,DIRECT 0.5 MG/DL (<0.4); CALCIUM LEVEL 8.4 MG/DL (8.3-10.6); CREATININE FOR GFR 1.13 MG/DL (0.55-1.30); GLOMERULAR FILTRATION RATE 50.5 (>39); MAGNESIUM LEVEL 1.1 MG/DL (1.8-2.4); POTASSIUM SERUM 2.8 MMOL/L (3.5-5.1); TOTAL PROTEIN 5.5 G/DL (5.7-8.2)
[2023-12-05] MEDS: POTASSIUM CHLORIDE 10MEQ SR TABLET PO ONE (10:30)
[2023-12-05] MEDS: MAG SULF 1GM/100ML (MAG RUN) 1 GM in IV 1 EA IV ONE (10:30)
[2023-12-05] MEDS ORDERED: ISOVUE-370 76% 100ML VIAL As Ordered ONE (11:07)
[2023-12-05] MEDS ORDERED: ONDA-84 PO (11:24)
[2023-12-05] MEDS ORDERED: VITA-183 PO (11:24)
[2023-12-05] MEDS ORDERED: PROM25TA12 PO (11:24)
[2023-12-05] MEDS ORDERED: FLUT15.820 NARES (11:24)
[2023-12-05] MEDS ORDERED: HOME MED LIST COMPLETE! XX SCH (11:25)
[2023-12-05] MEDS: ONDANSETRON 4MG 2ML VIAL IV ONE (11:44)
[2023-12-05] MEDS: LACTOBACILLUS ACIDOPHILUS CAP (BACID) PO SCH (12:30)
[2023-12-05 13:15] LABS: ALBUMIN 2.1 G/DL (3.2-5.2); CALCIUM LEVEL 6.9 MG/DL (8.3-10.6)
[2023-12-05] MEDS: MAGNESIUM OXIDE 400MG TAB (MAG-OX) PO ONE (13:25)
[2023-12-05] MEDS: POTASSIUM CHLORIDE 10MEQ SR TABLET PO SCH (13:26)
[2023-12-05] MEDS: MAG SULF 1GM/100ML (MAG RUN) 1 GM in IV 1 EA IV SCH (13:26)
[2023-12-05] MEDS: KCL 40MEQ in NS 1000ML 1,000 ML IV SCH ×2 (13:27→18:37)
[2023-12-05] MEDS ORDERED: KCL 40MEQ in NS 1000ML 1,000 ML IV SCH (14:00)
[2023-12-05] MEDS ORDERED: PIPERACILLIN/TAZOBACTAM SOD 4.5 GM in D5W MINI-BAG PLUS 50 ML IV SCH (14:10)
[2023-12-05] MEDS: guaiFENesin ER TABLET 600 MG TAB PO SCH (14:10)
[2023-12-05 15:31] VITALS: BP 116/62; TEMP 97.7; O2SAT 90
[2023-12-05] MEDS ORDERED: ALBUTEROL SULFATE 2.5MG/0.5ML INH NEB SOLN INH PRN (16:50)
[2023-12-05] MEDS ORDERED: ALBUTEROL 90 MCG/ACT 8GM HFA INHALER INH PRN (16:50)
[2023-12-05 16:59] VITALS: TEMP 100.4
[2023-12-05] MEDS: MONTELUKAST 10 MG TAB PO SCH (17:14)
[2023-12-05] MEDS: ACETAMINOPHEN 500 MG TAB PO PRN (17:14)
[2023-12-05] MEDS: ROSUVASTATIN 10 MG TAB (CRESTOR) PO SCH (17:15)
[2023-12-05] MEDS: PIPERACILLIN/TAZOBACTAM SOD 3.375 GM in D5W MINI-BAG PLUS 50 ML IV SCH (17:15)
[2023-12-05] MEDS: ONDANSETRON 4MG 2ML VIAL IV PRN (17:26)
[2023-12-05 18:00] VITALS: O2SAT 87
[2023-12-05] MEDS ORDERED: FIDAXOMICIN 200 MG TAB (DIFICID) PO SCH (18:00)
[2023-12-05 18:05] VITALS: O2SAT 92
[2023-12-05] MEDS ORDERED: guaiFENesin SYRUP 200MG 10ML UDC PO PRN (18:10)
[2023-12-05] MEDS: DOXYCYCLINE HYCLATE 100 MG in D5W MINI-BAG PLUS 100 ML IV SCH (18:40)
[2023-12-05] MEDS: PROMETHAZINE 25 MG TAB PO PRN (18:40)
[2023-12-05 18:48] LABS: ALBUMIN 2.4 G/DL (3.2-5.2); BLOOD UREA NITROGEN 16 MG/DL (9-23); CALCIUM LEVEL 7.1 MG/DL (8.3-10.6); CARBON DIOXIDE LEVEL 25 MMOL/L (20-31); CHLORIDE LEVEL 106 MMOL/L (98-107); CREATININE FOR GFR 0.89 MG/DL (0.55-1.30); GLOMERULAR FILTRATION RATE > 60.0 (>39); GLUCOSE, FASTING 97 MG/DL (74-106); MAGNESIUM LEVEL 2.3 MG/DL (1.8-2.4); SODIUM LEVEL 137 MMOL/L (136-145)
[2023-12-05] MEDS: LOPERAMIDE 2 MG CAPLET PO PRN (19:18)
[2023-12-05 19:20] VITALS: TEMP 99; O2SAT 92
[2023-12-05 21:06] VITALS: BP 114/62; TEMP 98.6; O2SAT 94
[2023-12-05] MEDS: GABAPENTIN 300 MG CAP PO SCH (21:19)
[2023-12-06] VITALS (12 sets, daily range): BP systolic 112–153; BP diastolic 62–80; TEMP 97.4–100.3; O2SAT 84–97
[2023-12-06 00:29] LABS: ALBUMIN 2.4 G/DL (3.2-5.2); CALCIUM LEVEL 7.2 MG/DL (8.3-10.6); GLOMERULAR FILTRATION RATE 58.2 (>39); MAGNESIUM LEVEL 2.1 MG/DL (1.8-2.4)
[2023-12-06] MEDS: diphenhydrAMINE 25MG CAP PO ONE (01:53)
[2023-12-06 06:47] LABS: ALBUMIN 2.1 G/DL (3.2-5.2); CALCIUM LEVEL 7.5 MG/DL (8.3-10.6); CREATININE FOR GFR 0.99 MG/DL (0.55-1.30); GLOMERULAR FILTRATION RATE 58.9 (>39); MAGNESIUM LEVEL 1.8 MG/DL (1.8-2.4); POTASSIUM SERUM 3.7 MMOL/L (3.5-5.1)
[2023-12-06] MEDS ORDERED: POTASSIUM CHLORIDE 10MEQ SR TABLET PO ONE (09:45)
[2023-12-06] MEDS: predniSONE 10MG TAB PO SCH (10:11)
[2023-12-06] MEDS: METOPROLOL SUCC *XL* 25MG TAB (TopROL *XL*) PO SCH (10:11)
[2023-12-06] MEDS: MAG SULF 1GM/100ML (MAG RUN) 1 GM in IV 1 EA IV ONE ×2 (10:21→14:21)
[2023-12-06 10:59] LABS: BASO % 0.2 % (0.0-1.0); EOS # 0.3 10^3/uL (0.0-0.5); EOS % 2.7 % (0.0-3.0); LYMPH # 0.5 10^3/uL (1.5-5.0); LYMPH % 4.9 % (24.0-44.0); MEAN CORPUSCULAR HEMOGLOBIN 32.2 pg (27.0-33.0); MEAN CORPUSCULAR HGB CONC 32.4 g/dl (32.0-36.5); MEAN CORPUSCULAR VOLUME 99.5 fl (80.0-96.0); MONO # 0.7 10^3/uL (0.0-0.8); MONO % 7.3 % (2.0-8.0); NEUTROPHILS # 7.8 10^3/uL (1.5-8.5); NEUTROPHILS % 84.2 % (36.0-66.0); PLATELET COUNT, AUTOMATED 331 10^3/uL (150-450); RED BLOOD COUNT 2.08 10^6/uL (4.00-5.40); WHITE BLOOD COUNT 9.2 10^3/uL (4.0-10.0)
[2023-12-06 11:04] LABS: HEMATOCRIT 20.7 % (36.0-47.0)
[2023-12-06 11:07] LABS: HEMOGLOBIN 6.7 g/dl (12.0-15.5)
[2023-12-06] MEDS: CALCIUM CARBONATE 500 MG CHEW U/D PO ONE (11:12)
[2023-12-06 11:33] LABS: CK-MB VALUE MASS 1.1 NG/ML (<3.6)
[2023-12-06] MEDS: POTASSIUM CHLORIDE 10% LIQ 20MEQ/15ML UDC PO ONE (11:33)
[2023-12-06 11:35] LABS: MB/CK RELATIVE INDEX 0.91 (< OR =4)
[2023-12-06 12:12] LABS: PERCENT SATURATION 12.6 % (13.2-45.0)
[2023-12-06 12:15] LABS: FERRITIN 398.7 NG/ML (7.3-270.7)
[2023-12-06 12:16] LABS: BILIRUBIN,DIRECT 0.3 MG/DL (<0.4); BILIRUBIN,TOTAL 0.5 MG/DL (0.3-1.2); TOTAL PROTEIN 4.4 G/DL (5.7-8.2)
[2023-12-06 12:58] LABS: HEMATOCRIT 21.6 % (36.0-47.0)
[2023-12-06] MEDS: CALCIUM GLUCONATE 1,000 MG in D5W MINI-BAG PLUS 100 ML IV ONE (13:01)
[2023-12-06] MEDS ORDERED: CALCIUM CARBONATE 500 MG CHEW U/D PO PRN (15:00)
[2023-12-06] MEDS: DOXYCYCLINE HYCLATE 100MG TABLET PO SCH (17:54)
[2023-12-06 18:27] LABS: HEMATOCRIT 27.1 % (36.0-47.0); HEMOGLOBIN 8.9 g/dl (12.0-15.5)
[2023-12-07 00:35] LABS: HEMATOCRIT 24.7 % (36.0-47.0); HEMOGLOBIN 8.2 g/dl (12.0-15.5)
[2023-12-07 05:12] VITALS: BP 142/75; TEMP 98.4; O2SAT 95
[2023-12-07 06:07] LABS: BASO % 0.3 % (0.0-1.0); EOS # 0.1 10^3/uL (0.0-0.5); EOS % 1.6 % (0.0-3.0); HEMATOCRIT 25.1 % (36.0-47.0); HEMOGLOBIN 8.1 g/dl (12.0-15.5); LYMPH # 0.4 10^3/uL (1.5-5.0); LYMPH % 5.4 % (24.0-44.0); MEAN CORPUSCULAR HEMOGLOBIN 29.2 pg (27.0-33.0); MEAN CORPUSCULAR HGB CONC 32.3 g/dl (32.0-36.5); MEAN CORPUSCULAR VOLUME 90.6 fl (80.0-96.0); MONO # 0.5 10^3/uL (0.0-0.8); MONO % 6.4 % (2.0-8.0); NEUTROPHILS # 6.5 10^3/uL (1.5-8.5); NEUTROPHILS % 85.6 % (36.0-66.0); PLATELET COUNT, AUTOMATED 307 10^3/uL (150-450); RED BLOOD COUNT 2.77 10^6/uL (4.00-5.40); WHITE BLOOD COUNT 7.5 10^3/uL (4.0-10.0)
[2023-12-07 06:31] LABS: LDH LACTATE DEHYDROGENASE 248 U/L (120-246)
[2023-12-07 06:32] LABS: BLOOD UREA NITROGEN 9 MG/DL (9-23); CALCIUM LEVEL 7.4 MG/DL (8.3-10.6); CARBON DIOXIDE LEVEL 21 MMOL/L (20-31); CHLORIDE LEVEL 109 MMOL/L (98-107); CREATININE FOR GFR 0.85 MG/DL (0.55-1.30); GLOMERULAR FILTRATION RATE > 60.0 (>39); GLUCOSE, FASTING 84 MG/DL (74-106); POTASSIUM SERUM 4.1 MMOL/L (3.5-5.1); SODIUM LEVEL 137 MMOL/L (136-145)
[2023-12-07] MEDS: VANCOMYCIN 125MG CAPSULE PO SCH (08:08)
[2023-12-07 14:00] VITALS: BP 141/80; TEMP 98.1; O2SAT 95
[2023-12-07] MEDS: IPRATROPIUM 0.5MG/ALBUTEROL 2.5MG INH SOL UD 3ML (DUONEB) NEB SCH (19:39)
[2023-12-07] MEDS: SYMBICORT 160/4.5MCG INHALER 6GM INH SCH (19:39)
[2023-12-07 20:50] VITALS: BP 133/68; TEMP 97.5; O2SAT 94
[2023-12-08] VITALS (7 sets, daily range): BP systolic 109–147; BP diastolic 67–76; TEMP 97.5–98.2; O2SAT 91–95
[2023-12-08 06:25] LABS: HEMATOCRIT 22.7 % (36.0-47.0); HEMOGLOBIN 7.5 g/dl (12.0-15.5); MEAN CORPUSCULAR HEMOGLOBIN 29.9 pg (27.0-33.0); MEAN CORPUSCULAR VOLUME 90.4 fl (80.0-96.0); PLATELET COUNT, AUTOMATED 315 10^3/uL (150-450); RED BLOOD COUNT 2.51 10^6/uL (4.00-5.40); WHITE BLOOD COUNT 5.8 10^3/uL (4.0-10.0)
[2023-12-08 06:26] LABS: BASO % 0.3 % (0.0-1.0); EOS # 0.1 10^3/uL (0.0-0.5); EOS % 2.1 % (0.0-3.0); LYMPH # 0.5 10^3/uL (1.5-5.0); LYMPH % 9.2 % (24.0-44.0); MONO # 0.5 10^3/uL (0.0-0.8); MONO % 9.2 % (2.0-8.0); NEUTROPHILS # 4.5 10^3/uL (1.5-8.5)
[2023-12-08 06:38] LABS: BLOOD UREA NITROGEN 9 MG/DL (9-23); CALCIUM LEVEL 7.8 MG/DL (8.3-10.6); CARBON DIOXIDE LEVEL 24 MMOL/L (20-31); CHLORIDE LEVEL 108 MMOL/L (98-107); CREATININE FOR GFR 0.88 MG/DL (0.55-1.30); GLOMERULAR FILTRATION RATE > 60.0 (>39); GLUCOSE, FASTING 88 MG/DL (74-106); POTASSIUM SERUM 3.4 MMOL/L (3.5-5.1); SODIUM LEVEL 139 MMOL/L (136-145)
[2023-12-08] MEDS: TIOTROPIUM INHALER/CAPSULE (SPIRIVA) INH SCH (07:43)
[2023-12-08] MEDS: RAMELTEON 8 MG TAB (ROZEREM) PO PRN (21:13)
[2023-12-09 06:46] VITALS: BP 134/63; TEMP 97.1; O2SAT 93
[2023-12-09 06:51] LABS: HEMATOCRIT 29.9 % (36.0-47.0); RED BLOOD COUNT 3.33 10^6/uL (4.00-5.40); WHITE BLOOD COUNT 5.9 10^3/uL (4.0-10.0)
[2023-12-09 06:52] LABS: BASO % 0.7 % (0.0-1.0); EOS # 0.1 10^3/uL (0.0-0.5); EOS % 1.5 % (0.0-3.0); LYMPH # 0.7 10^3/uL (1.5-5.0); LYMPH % 11.2 % (24.0-44.0); MEAN CORPUSCULAR HGB CONC 33.4 g/dl (32.0-36.5); MEAN CORPUSCULAR VOLUME 89.8 fl (80.0-96.0); MONO # 0.5 10^3/uL (0.0-0.8); NEUTROPHILS # 4.3 10^3/uL (1.5-8.5); NEUTROPHILS % 72.9 % (36.0-66.0); PLATELET COUNT, AUTOMATED 327 10^3/uL (150-450)
[2023-12-09 07:12] LABS: BLOOD UREA NITROGEN 10 MG/DL (9-23); CALCIUM LEVEL 8.4 MG/DL (8.3-10.6); CARBON DIOXIDE LEVEL 26 MMOL/L (20-31); CHLORIDE LEVEL 106 MMOL/L (98-107); CREATININE FOR GFR 0.84 MG/DL (0.55-1.30); GLOMERULAR FILTRATION RATE > 60.0 (>39); GLUCOSE, FASTING 93 MG/DL (74-106); POTASSIUM SERUM 3.2 MMOL/L (3.5-5.1); SODIUM LEVEL 139 MMOL/L (136-145)
[2023-12-09 07:24] LABS: PROCALCITONIN 6.72 ng/ml
[2023-12-09] MEDS: POTASSIUM CHLORIDE 10MEQ SR TABLET PO ONE ×2 (09:15→13:02)
[2023-12-09 14:00] VITALS: BP 130/66; TEMP 97.5; O2SAT 93
[2023-12-10 05:13] VITALS: BP 132/67; TEMP 98.1; O2SAT 91
[2023-12-10 06:22] LABS: HEMATOCRIT 27.6 % (36.0-47.0); RED BLOOD COUNT 2.95 10^6/uL (4.00-5.40); WHITE BLOOD COUNT 6.6 10^3/uL (4.0-10.0)
[2023-12-10 06:23] LABS: BASO % 0.9 % (0.0-1.0); EOS % 2.7 % (0.0-3.0); LYMPH % 13.3 % (24.0-44.0); MEAN CORPUSCULAR HEMOGLOBIN 30.5 pg (27.0-33.0); MEAN CORPUSCULAR HGB CONC 32.6 g/dl (32.0-36.5); MEAN CORPUSCULAR VOLUME 93.6 fl (80.0-96.0); NEUTROPHILS # 4.7 10^3/uL (1.5-8.5); PLATELET COUNT, AUTOMATED 320 10^3/uL (150-450)
[2023-12-10 06:24] LABS: BASO # 0.1 10^3/uL (0.0-0.2); EOS # 0.2 10^3/uL (0.0-0.5); LYMPH # 0.9 10^3/uL (1.5-5.0); MONO # 0.6 10^3/uL (0.0-0.8)
[2023-12-10 06:31] LABS: BLOOD UREA NITROGEN 9 MG/DL (9-23); CALCIUM LEVEL 8.3 MG/DL (8.3-10.6); CARBON DIOXIDE LEVEL 26 MMOL/L (20-31); CHLORIDE LEVEL 109 MMOL/L (98-107); CREATININE FOR GFR 0.75 MG/DL (0.55-1.30); GLOMERULAR FILTRATION RATE > 60.0 (>39); GLUCOSE, FASTING 76 MG/DL (74-106); POTASSIUM SERUM 3.6 MMOL/L (3.5-5.1); SODIUM LEVEL 142 MMOL/L (136-145)
[2023-12-10 08:27] VITALS: BP 156/80
[2023-12-10 14:00] VITALS: BP 146/86; TEMP 97.7; O2SAT 90
[2023-12-10] MEDS: methylPREDNISolone 40MG 1ML VIAL IV ONE (14:12)
[2023-12-10 20:18] VITALS: BP 147/86; TEMP 97.7; O2SAT 91
[2023-12-10 20:40] VITALS: O2SAT 90
[2023-12-11 05:36] VITALS: BP 132/69; TEMP 97; O2SAT 92
[2023-12-11 06:16] LABS: BASO % 0.3 % (0.0-1.0); HEMATOCRIT 28.5 % (36.0-47.0); HEMOGLOBIN 9.3 g/dl (12.0-15.5); LYMPH # 0.6 10^3/uL (1.5-5.0); LYMPH % 7.1 % (24.0-44.0); MEAN CORPUSCULAR HEMOGLOBIN 30.6 pg (27.0-33.0); MEAN CORPUSCULAR HGB CONC 32.6 g/dl (32.0-36.5); MEAN CORPUSCULAR VOLUME 93.8 fl (80.0-96.0); MONO # 0.5 10^3/uL (0.0-0.8); MONO % 5.7 % (2.0-8.0); NEUTROPHILS # 7.1 10^3/uL (1.5-8.5); NEUTROPHILS % 82.8 % (36.0-66.0); PLATELET COUNT, AUTOMATED 366 10^3/uL (150-450); RED BLOOD COUNT 3.04 10^6/uL (4.00-5.40); WHITE BLOOD COUNT 8.6 10^3/uL (4.0-10.0)
[2023-12-11 06:39] LABS: BLOOD UREA NITROGEN 16 MG/DL (9-23); CALCIUM LEVEL 8.9 MG/DL (8.3-10.6); CARBON DIOXIDE LEVEL 27 MMOL/L (20-31); CHLORIDE LEVEL 108 MMOL/L (98-107); GLOMERULAR FILTRATION RATE > 60.0 (>39); GLUCOSE, FASTING 109 MG/DL (74-106); POTASSIUM SERUM 3.5 MMOL/L (3.5-5.1); SODIUM LEVEL 139 MMOL/L (136-145)
[2023-12-11 09:28] VITALS: BP 126/59
[2023-12-11] MEDS: predniSONE 50 MG TAB PO SCH (11:52)
[2023-12-11 12:42] LABS: HEMATOCRIT 29.1 % (36.0-47.0); HEMOGLOBIN 9.5 g/dl (12.0-15.5); MEAN CORPUSCULAR HEMOGLOBIN 30.6 pg (27.0-33.0); MEAN CORPUSCULAR HGB CONC 32.6 g/dl (32.0-36.5); MEAN CORPUSCULAR VOLUME 93.9 fl (80.0-96.0); PLATELET COUNT, AUTOMATED 378 10^3/uL (150-450); WHITE BLOOD COUNT 10.8 10^3/uL (4.0-10.0)
[2023-12-11 14:00] VITALS: BP 146/69; TEMP 98.1; O2SAT 96
[2023-12-11] MEDS ORDERED: DOXY100T PO (14:44)
[2023-12-11] MEDS ORDERED: VANC1CAP6 PO (14:44)
[2023-12-11] MEDS ORDERED: PRED10TA2 PO (14:44)
[2023-12-11] MEDS ORDERED: PRED50TA PO (14:44)
[2023-12-11] MEDS ORDERED: RISATAB3 PO (14:44)
[2023-12-11 15:21] LABS: BODY FLUID CULTURE Not indicated. (.); LEGIONELLA ANTIGEN URINE Negative (Negative); ORGANISM ID Not indicated. (.); SPECIMEN SOURCE Urine (.); URINE STREP PNEUMONIAE ANTIGEN Negative (Negative)
[2023-12-11] MEDS ORDERED: RAME8TAB2 PO (15:29)
== END 2023-12-11 17:02 | disposition home or self-care (01) | DRG 871 ==
LOC: M ED 08:06 → M ED INP 12:05 → M MSPAV 15:40
PROVIDERS: ADMIT General Practice; ATTEND Student in an Organized Health Care Education/Training Program
PROC: 30233N1 Transfusion of Nonautologous Red Blood Cells into Peripheral Vein, Percutaneous Approach (ICD-10-PCS; principal; 2023-12-06)
DX: A41.9 Sepsis, unspecified organism (principal); J18.9 Pneumonia, unspecified organism; C34.12 Malignant neoplasm of upper lobe, left bronchus or lung; J44.0 Chronic obstructive pulmonary disease with (acute) lower respiratory infection; J44.1 Chronic obstructive pulmonary disease with (acute) exacerbation; D62 Acute posthemorrhagic anemia; K52.1 Toxic gastroenteritis and colitis; Z66 Do not resuscitate; D50.9 Iron deficiency anemia, unspecified; R19.7 Diarrhea, unspecified; E87.6 Hypokalemia; E83.42 Hypomagnesemia; I10 Essential (primary) hypertension; I08.0 Rheumatic disorders of both mitral and aortic valves; I27.20 Pulmonary hypertension, unspecified; Z79.52 Long term (current) use of systemic steroids; Z79.899 Other long term (current) drug therapy; Z88.8 Allergy status to other drugs, medicaments and biological substances; Z11.52 Encounter for screening for COVID-19; Z87.891 Personal history of nicotine dependence; Z86.718 Personal history of other venous thrombosis and embolism

== ENCOUNTER → 2023-12-18 | Outpatient (CLI) | payer MEDICARE ==
[~2023-12-18] MED LIST changes: +DOXY100T PO; +FLUT15.820 NARES; +LORA1TAB23 PO; +ONDA-84 PO; +POTA1TAB21 PO; +PRED50TA PO; +PROBCAP14 PO; +RAME8TAB2 PO; +RISATAB3 PO; +VANC125C12; +VANC1CAP6 PO; +VITA-183 PO
[2023-12-18 08:28] LABS: BASO % 0.2 % (0.0-1.0); EOS # 0.2 10^3/uL (0.0-0.5); EOS % 1.3 % (0.0-3.0); HEMATOCRIT 33.9 % (36.0-47.0); HEMOGLOBIN 10.7 g/dl (12.0-15.5); LYMPH # 0.6 10^3/uL (1.5-5.0); LYMPH % 5.1 % (24.0-44.0); MEAN CORPUSCULAR HGB CONC 31.6 g/dl (32.0-36.5); MONO # 0.9 10^3/uL (0.0-0.8); MONO % 7.5 % (2.0-8.0); NEUTROPHILS # 9.5 10^3/uL (1.5-8.5); NEUTROPHILS % 83.5 % (36.0-66.0); PLATELET COUNT, AUTOMATED 222 10^3/uL (150-450); RED BLOOD COUNT 3.57 10^6/uL (4.00-5.40); WHITE BLOOD COUNT 11.4 10^3/uL (4.0-10.0)
[2023-12-18 09:01] LABS: TOTAL IRON BINDING CAPACITY 208 UG/DL (250-425)
[2023-12-18 09:02] LABS: ALKALINE PHOSPHATASE 56 U/L (46-116); ALT/SGPT 62 U/L (7.0-40); AST/SGOT 31 U/L (<34); BILIRUBIN,TOTAL 1.1 MG/DL (0.3-1.2); BLOOD UREA NITROGEN 14 MG/DL (9-23); CALCIUM LEVEL 8.5 MG/DL (8.3-10.6); CARBON DIOXIDE LEVEL 31 MMOL/L (20-31); CHLORIDE LEVEL 104 MMOL/L (98-107); CREATININE FOR GFR 0.93 MG/DL (0.55-1.30); GLOMERULAR FILTRATION RATE > 60.0 (>39); GLUCOSE, FASTING 95 MG/DL (74-106); IRON (FE) 77 UG/DL (50-170); MAGNESIUM LEVEL 1.7 MG/DL (1.8-2.4); POTASSIUM SERUM 3.2 MMOL/L (3.5-5.1); SODIUM LEVEL 140 MMOL/L (136-145); TOTAL PROTEIN 5.2 G/DL (5.7-8.2)
[2023-12-18 09:04] LABS: FERRITIN 443.8 NG/ML (7.3-270.7); FREE T4 1.78 NG/DL (0.89-1.76); THYROID STIMULATING HORMONE 0.758 uIU/ML (0.55-4.78)
== END ==
LOC: M LAB 07:41
PROVIDERS: ATTEND Internal Medicine Medical Oncology
DX: C34.90 Malignant neoplasm of unspecified part of unspecified bronchus or lung (principal); Z79.899 Other long term (current) drug therapy

== ENCOUNTER 2024-01-10 20:08 | Inpatient (IN) | payer MEDICARE ==
[~2024-01-10] VITALS: Ht 154.9 cm; Wt 60.4 kg
[~2024-01-10 20:08] MED LIST changes: -BUDE10.7 IH; +BUDE10.7 INH; -ROSU40TA4 PO; +ROSU40TA63 PO; +VENL75CA47 PO
[2024-01-10] MEDS: ONDANSETRON 4MG 2ML VIAL IV ONE (21:03)
[2024-01-10] MEDS: NS IV STA (21:05)
[2024-01-10 21:09] LABS: BASO # 0.1 10^3/uL (0.0-0.2); BASO % 0.6 % (0.0-1.0); EOS # 0.2 10^3/uL (0.0-0.5); EOS % 1.3 % (0.0-3.0); HEMATOCRIT 33.1 % (36.0-47.0); HEMOGLOBIN 11.1 g/dl (12.0-15.5); LYMPH # 1.7 10^3/uL (1.5-5.0); LYMPH % 10.6 % (24.0-44.0); MEAN CORPUSCULAR HEMOGLOBIN 30.9 pg (27.0-33.0); MEAN CORPUSCULAR HGB CONC 33.5 g/dl (32.0-36.5); MEAN CORPUSCULAR VOLUME 92.2 fl (80.0-96.0); MONO # 1.1 10^3/uL (0.0-0.8); MONO % 6.9 % (2.0-8.0); NEUTROPHILS # 12.6 10^3/uL (1.5-8.5); NEUTROPHILS % 79.3 % (36.0-66.0); PLATELET COUNT, AUTOMATED 257 10^3/uL (150-450); RED BLOOD COUNT 3.59 10^6/uL (4.00-5.40); WHITE BLOOD COUNT 15.9 10^3/uL (4.0-10.0)
[2024-01-10] MEDS: MORPHINE 4 MG/ML 1ML VIAL IV ONE (21:09)
[2024-01-10 21:20] LABS: INR 0.94; PARTIAL THROMBOPLASTIN TIME 25.2 SECONDS (24.8-34.2); PROTHROMBIN TIME 12.3 SECONDS (12.5-14.5)
[2024-01-10] MEDS: LEVALBUTEROL 1.25MG 0.5ML CONCENTRATE NEB NEB ONE ×2 (21:22)
[2024-01-10 21:30] LABS: CK-MB VALUE MASS < 1.0 NG/ML (<3.6)
[2024-01-10 21:32] LABS: AMYLASE 90 U/L (30-118)
[2024-01-10 21:36] LABS: ALBUMIN 2.9 G/DL (3.2-5.2); ALKALINE PHOSPHATASE 58 U/L (46-116); ALT/SGPT 35 U/L (7.0-40); AST/SGOT 32 U/L (<34); BILIRUBIN,DIRECT 0.4 MG/DL (<0.4); BILIRUBIN,TOTAL 0.9 MG/DL (0.3-1.2); BLOOD UREA NITROGEN 24 MG/DL (9-23); CALCIUM LEVEL 8.6 MG/DL (8.3-10.6); CARBON DIOXIDE LEVEL 24 MMOL/L (20-31); CHLORIDE LEVEL 98 MMOL/L (98-107); CREATININE FOR GFR 1.48 MG/DL (0.55-1.30); GLUCOSE, FASTING 93 MG/DL (74-106); SODIUM LEVEL 135 MMOL/L (136-145); TOTAL PROTEIN 5.8 G/DL (5.7-8.2)
[2024-01-10 21:56] LABS: CPK CREATINE PHOSPHOKINASE 33 U/L (34-145); MB/CK RELATIVE INDEX 3.03 (< OR =4)
[2024-01-10] MEDS: KCL 10MEQ/100ML SWI (KRUN) 10 MEQ in IV 1 EA IV ONE (23:21)
[2024-01-10] MEDS: POTASSIUM CHLORIDE 10% LIQ 20MEQ/15ML UDC PO ONE (23:22)
[2024-01-10] MEDS: METOCLOPRAMIDE INJ 10MG/2ML VIAL IV ONE (23:22)
[2024-01-10 23:38] LABS: CK-MB VALUE MASS < 1.0 NG/ML (<3.6); MAGNESIUM LEVEL 1.7 MG/DL (1.8-2.4)
[2024-01-10 23:40] LABS: CPK CREATINE PHOSPHOKINASE 31 U/L (34-145); MB/CK RELATIVE INDEX 3.22 (< OR =4)
[2024-01-11] MEDS ORDERED: ROZE8TAB16 PO (02:20)
[2024-01-11] MEDS ORDERED: METO1TAB32 PO (02:20)
[2024-01-11] MEDS ORDERED: VITA100093 PO (02:23)
[2024-01-11] MEDS ORDERED: HOME MED LIST COMPLETE! XX SCH (02:30)
[2024-01-11] MEDS: IPRATROPIUM 0.02% SOLN 0.5MG 2.5ML NEB NEB SCH (03:02)
[2024-01-11] MEDS: methylPREDNISolone 40MG 1ML VIAL IV ONE (03:22)
[2024-01-11] MEDS: KCL 40MEQ in NS 1000ML 1,000 ML IV SCH (03:23)
[2024-01-11] MEDS: guaiFENesin ER TABLET 600 MG TAB PO SCH ×2 (03:23→11:32)
[2024-01-11] MEDS: cefTRIAXone SOD 1 GM in D5W MINI-BAG PLUS 50 ML IV SCH (03:34)
[2024-01-11] MEDS: MAG SULF 1GM/100ML (MAG RUN) 1 GM in IV 1 EA IV ONE (04:28)
[2024-01-11] MEDS: HEPARIN SOD (PORCINE) 5000UNITS/ML 1ML VIAL/SYRINGE SC SCH (06:09)
[2024-01-11] MEDS ORDERED: DOXYCYCLINE HYCLATE 100 MG in D5W MINI-BAG PLUS 100 ML IV SCH (07:20)
[2024-01-11 07:58] LABS: BASO % 0.3 % (0.0-1.0); EOS % 0.1 % (0.0-3.0); HEMATOCRIT 27.7 % (36.0-47.0); HEMOGLOBIN 9.3 g/dl (12.0-15.5); LYMPH # 0.4 10^3/uL (1.5-5.0); MEAN CORPUSCULAR HGB CONC 33.6 g/dl (32.0-36.5); MEAN CORPUSCULAR VOLUME 92.3 fl (80.0-96.0); MONO # 0.2 10^3/uL (0.0-0.8); MONO % 2.4 % (2.0-8.0); NEUTROPHILS # 9.3 10^3/uL (1.5-8.5); PLATELET COUNT, AUTOMATED 210 10^3/uL (150-450); WHITE BLOOD COUNT 10.2 10^3/uL (4.0-10.0)
[2024-01-11 08:16] LABS: CALCIUM LEVEL 7.6 MG/DL (8.3-10.6); CREATININE FOR GFR 1.43 MG/DL (0.55-1.30); GLOMERULAR FILTRATION RATE 38.5 (>39); MAGNESIUM LEVEL 2.1 MG/DL (1.8-2.4); POTASSIUM SERUM 3.5 MMOL/L (3.5-5.1)
[2024-01-11] MEDS: NS 500 ML IV ONE (09:18)
[2024-01-11] MEDS: FIDAXOMICIN 200 MG TAB (DIFICID) PO SCH (09:18)
[2024-01-11] MEDS: DOXYCYCLINE HYCLATE 100MG TABLET PO SCH (09:18)
[2024-01-11] MEDS: POTASSIUM CHLORIDE 10MEQ SR TABLET PO ONE (09:19)
[2024-01-11] MEDS: PANTOPRAZOLE 40MG TAB (PROTONIX) PO SCH (09:19)
[2024-01-11] MEDS: NS 1,000 ML IV SCH (09:20)
[2024-01-11] MEDS: methylPREDNISolone 40MG 1ML VIAL IV SCH (11:32)
[2024-01-11 13:45] VITALS: BP 166/74; TEMP 97.6; O2SAT 96
[2024-01-11] MEDS: SYMBICORT 160/4.5MCG INHALER 6GM INH SCH (14:15)
[2024-01-11] MEDS: GLYCOPYRROLATE INJ 0.2 MG/ML 2 ML VIAL NEB SCH (14:30)
[2024-01-11] MEDS: VENLAFAXINE **XR** 75MG CAPSULE PO SCH (14:47)
[2024-01-11 15:58] VITALS: BP 138/65; TEMP 97.1; O2SAT 94
[2024-01-11] MEDS: METOPROLOL SUCC *XL* 25MG TAB (TopROL *XL*) PO STA (16:02)
[2024-01-11 20:00] VITALS: BP 152/70; TEMP 97.6; O2SAT 97
[2024-01-11] MEDS: ROSUVASTATIN 10 MG TAB (CRESTOR) PO SCH (20:07)
[2024-01-11] MEDS: MONTELUKAST 10 MG TAB PO SCH (20:08)
[2024-01-11] MEDS: RAMELTEON 8 MG TAB (ROZEREM) PO PRN (22:58)
[2024-01-11 23:01] VITALS: BP 148/82; TEMP 97.5; O2SAT 94
[2024-01-11 23:07] LABS: CALCIUM LEVEL 7.6 MG/DL (8.3-10.6); CREATININE FOR GFR 1.14 MG/DL (0.55-1.30); POTASSIUM SERUM 3.6 MMOL/L (3.5-5.1)
[2024-01-12] VITALS (8 sets, daily range): BP systolic 144–170; BP diastolic 67–81; TEMP 97–97.4; O2SAT 93–97
[2024-01-12] MEDS: IPRATROPIUM 0.02% SOLN 0.5MG 2.5ML NEB NEB ONE (04:16)
[2024-01-12] MEDS: **hydrALAZINE** 10 MG TAB PO ONE (04:19)
[2024-01-12 05:54] LABS: BASO % 0.1 % (0.0-1.0); HEMATOCRIT 24.7 % (36.0-47.0); HEMOGLOBIN 8.2 g/dl (12.0-15.5); LYMPH # 0.4 10^3/uL (1.5-5.0); LYMPH % 4.8 % (24.0-44.0); MEAN CORPUSCULAR HEMOGLOBIN 30.3 pg (27.0-33.0); MEAN CORPUSCULAR HGB CONC 33.2 g/dl (32.0-36.5); MEAN CORPUSCULAR VOLUME 91.1 fl (80.0-96.0); MONO # 0.2 10^3/uL (0.0-0.8); MONO % 2.2 % (2.0-8.0); NEUTROPHILS % 91.5 % (36.0-66.0); PLATELET COUNT, AUTOMATED 208 10^3/uL (150-450); RED BLOOD COUNT 2.71 10^6/uL (4.00-5.40); WHITE BLOOD COUNT 7.6 10^3/uL (4.0-10.0)
[2024-01-12] MEDS ORDERED: methylPREDNISolone 40MG 1ML VIAL IV SCH (06:00)
[2024-01-12 06:23] LABS: CALCIUM LEVEL 7.7 MG/DL (8.3-10.6); CREATININE FOR GFR 1.07 MG/DL (0.55-1.30); GLOMERULAR FILTRATION RATE 53.8 (>39); MAGNESIUM LEVEL 1.9 MG/DL (1.8-2.4); POTASSIUM SERUM 3.5 MMOL/L (3.5-5.1)
[2024-01-12] MEDS ORDERED: ISOVUE-370 76% 100ML VIAL As Ordered ONE (08:11)
[2024-01-12] MEDS: ACETAMINOPHEN TAB 650MG DOSE (2X325MG) PO PRN (08:30)
[2024-01-12] MEDS: METOPROLOL SUCC *XL* 25MG TAB (TopROL *XL*) PO SCH (08:30)
[2024-01-12] MEDS: NS 1,000 ML IV SCH (08:31)
[2024-01-12] MEDS: ONDANSETRON 4MG 2ML VIAL IV PRN (09:07)
[2024-01-12] MEDS: METOCLOPRAMIDE INJ 10MG/2ML VIAL IV STA (10:57)
[2024-01-12] MEDS: METOPROLOL SUCC (TopROL XL) 50MG **XL** TAB PO ONE (12:09)
[2024-01-13] VITALS (29 sets, daily range): BP systolic 148–186; BP diastolic 69–120; PULSE 134; TEMP 97.3–98.3; O2SAT 91–100
[2024-01-13] MEDS ORDERED: NITROGLYCERIN 0.4MG SUBL TABLET SL PRN (03:40)
[2024-01-13 04:02] LABS: BASO % 0.1 % (0.0-1.0); HEMATOCRIT 25.6 % (36.0-47.0); HEMOGLOBIN 8.6 g/dl (12.0-15.5); LYMPH # 0.5 10^3/uL (1.5-5.0); LYMPH % 4.2 % (24.0-44.0); MEAN CORPUSCULAR HEMOGLOBIN 30.5 pg (27.0-33.0); MEAN CORPUSCULAR HGB CONC 33.6 g/dl (32.0-36.5); MEAN CORPUSCULAR VOLUME 90.8 fl (80.0-96.0); MONO # 0.3 10^3/uL (0.0-0.8); MONO % 2.2 % (2.0-8.0); NEUTROPHILS # 11.6 10^3/uL (1.5-8.5); NEUTROPHILS % 91.9 % (36.0-66.0); PLATELET COUNT, AUTOMATED 277 10^3/uL (150-450); RED BLOOD COUNT 2.82 10^6/uL (4.00-5.40); WHITE BLOOD COUNT 12.7 10^3/uL (4.0-10.0)
[2024-01-13] MEDS: FUROSEMIDE 20MG/2ML VIAL IV ONE ×2 (04:05→12:49)
[2024-01-13] MEDS: IPRATROPIUM 0.02% SOLN 0.5MG 2.5ML NEB INH ONE (04:08)
[2024-01-13 04:31] LABS: CK-MB VALUE MASS 5.6 NG/ML (<3.6)
[2024-01-13 04:32] LABS: CALCIUM LEVEL 8.1 MG/DL (8.3-10.6); CREATININE FOR GFR 1.02 MG/DL (0.55-1.30); GLOMERULAR FILTRATION RATE 56.9 (>39); POTASSIUM SERUM 3.8 MMOL/L (3.5-5.1)
[2024-01-13 04:37] LABS: MB/CK RELATIVE INDEX 7.08 (< OR =4)
[2024-01-13] MEDS: POTASSIUM CHLORIDE 10MEQ SR TABLET PO ONE (05:56)
[2024-01-13] MEDS: METOPROLOL SUCC *XL* 25MG TAB (TopROL *XL*) PO SCH (08:45)
[2024-01-13] MEDS: LABETALOL 100MG/20ML VIAL IV PRN (12:50)
[2024-01-14] VITALS (19 sets, daily range): BP systolic 148–170; BP diastolic 70–80; TEMP 96.9–97.1; O2SAT 91–97
[2024-01-14 05:43] LABS: BASO % 0.3 % (0.0-1.0); HEMOGLOBIN 7.3 g/dl (12.0-15.5); LYMPH # 0.4 10^3/uL (1.5-5.0); LYMPH % 6.4 % (24.0-44.0); MEAN CORPUSCULAR HEMOGLOBIN 29.7 pg (27.0-33.0); MEAN CORPUSCULAR HGB CONC 33.2 g/dl (32.0-36.5); MEAN CORPUSCULAR VOLUME 89.4 fl (80.0-96.0); MONO # 0.5 10^3/uL (0.0-0.8); MONO % 7.2 % (2.0-8.0); NEUTROPHILS # 5.1 10^3/uL (1.5-8.5); NEUTROPHILS % 82.1 % (36.0-66.0); PLATELET COUNT, AUTOMATED 195 10^3/uL (150-450); RED BLOOD COUNT 2.46 10^6/uL (4.00-5.40); WHITE BLOOD COUNT 6.2 10^3/uL (4.0-10.0)
[2024-01-14 06:06] LABS: CALCIUM LEVEL 8.1 MG/DL (8.3-10.6); CREATININE FOR GFR 1.07 MG/DL (0.55-1.30); GLOMERULAR FILTRATION RATE 53.8 (>39); MAGNESIUM LEVEL 2.1 MG/DL (1.8-2.4)
[2024-01-14 07:57] LABS: BASO % 0.1 % (0.0-1.0); LYMPH # 0.5 10^3/uL (1.5-5.0); LYMPH % 7.4 % (24.0-44.0); MEAN CORPUSCULAR HEMOGLOBIN 31.5 pg (27.0-33.0); MEAN CORPUSCULAR HGB CONC 34.8 g/dl (32.0-36.5); MEAN CORPUSCULAR VOLUME 90.6 fl (80.0-96.0); MONO # 0.5 10^3/uL (0.0-0.8); MONO % 7.4 % (2.0-8.0); NEUTROPHILS # 5.8 10^3/uL (1.5-8.5); NEUTROPHILS % 82.1 % (36.0-66.0); PLATELET COUNT, AUTOMATED 207 10^3/uL (150-450); RED BLOOD COUNT 2.54 10^6/uL (4.00-5.40)
[2024-01-14] MEDS: predniSONE 20 MG TAB PO SCH (08:11)
[2024-01-14] MEDS: POTASSIUM CHLORIDE 10MEQ SR TABLET PO ONE ×2 (08:12→11:52)
[2024-01-14 08:22] LABS: PERCENT SATURATION 33.7 % (13.2-45.0)
[2024-01-14 08:24] LABS: FOLATE 11.49 NG/ML (>5.4)
[2024-01-14] MEDS ORDERED: PRED10TA2 PO ×2 (10:42→11:16)
[2024-01-14] MEDS ORDERED: NITR4TASL SL (10:42)
[2024-01-14] MEDS ORDERED: METO1TAB32 PO (10:42)
== END 2024-01-14 15:05 | disposition home or self-care (01) | DRG 191 ==
LOC: M ED 20:08 → M ED INP 01-11 01:34 → M PCU 01-11 13:37
PROVIDERS: ADMIT Preventive Medicine Undersea and Hyperbaric Medicine; ATTEND Internal Medicine
DX: J44.1 Chronic obstructive pulmonary disease with (acute) exacerbation (principal); N17.9 Acute kidney failure, unspecified; J45.901 Unspecified asthma with (acute) exacerbation; C34.91 Malignant neoplasm of unspecified part of right bronchus or lung; I24.89 Other forms of acute ischemic heart disease; E87.20 Acidosis, unspecified; E87.6 Hypokalemia; Z95.2 Presence of prosthetic heart valve; I44.7 Left bundle-branch block, unspecified; E83.42 Hypomagnesemia; E86.0 Dehydration; I10 Essential (primary) hypertension; D50.9 Iron deficiency anemia, unspecified; E78.5 Hyperlipidemia, unspecified; E88.09 Other disorders of plasma-protein metabolism, not elsewhere classified; K21.9 Gastro-esophageal reflux disease without esophagitis; R19.7 Diarrhea, unspecified; I35.0 Nonrheumatic aortic (valve) stenosis; Z86.711 Personal history of pulmonary embolism; Z92.21 Personal history of antineoplastic chemotherapy; Z92.3 Personal history of irradiation; B34.8 Other viral infections of unspecified site; Z88.8 Allergy status to other drugs, medicaments and biological substances; Z79.899 Other long term (current) drug therapy; Z87.891 Personal history of nicotine dependence

== ENCOUNTER 2024-02-09 13:20 | Inpatient (IN) | payer MEDICARE ==
[~2024-02-09] VITALS: Ht 154.9 cm; Wt 57.2 kg
[2024-02-09] VITALS (13 sets, daily range): BP systolic 135–164; BP diastolic 67–88; TEMP 96.9–98.5; O2SAT 95–98
[~2024-02-09 13:20] MED LIST changes: +METO1TAB32 PO; +NITR4TASL SL; +ONDA-284 PO; -ONDA8TAB8 PO; +ROZE8TAB16 PO; +VITA100093 PO
[2024-02-09 15:22] LABS: VENOUS BASE EXCESS -0.4 (-2.0-2.0); VENOUS HCO3 25.8 MMOL/L (23.0-27.0); VENOUS O2 SATURATION 70.2 % (60.0-80.0); VENOUS PARTIAL PRESSURE CO2 50.5 mmHg (38.0-50.0); VENOUS PARTIAL PRESSURE O2 40.1 mmHg (30.0-50.0); VENOUS PH 7.326 UNITS (7.330-7.430); VENOUS STANDARD HCO3 23.7 MMOL/L; VENOUS TOTAL CO2 27.3 MMOL/L (24.0-28.0)
[2024-02-09 15:30] LABS: BASO % 0.1 % (0.0-1.0); HEMATOCRIT 22.8 % (36.0-47.0); HEMOGLOBIN 7.4 g/dl (12.0-15.5); LYMPH # 0.4 10^3/uL (1.5-5.0); LYMPH % 3.4 % (24.0-44.0); MEAN CORPUSCULAR HEMOGLOBIN 30.5 pg (27.0-33.0); MEAN CORPUSCULAR HGB CONC 32.5 g/dl (32.0-36.5); MEAN CORPUSCULAR VOLUME 93.8 fl (80.0-96.0); MONO # 0.5 10^3/uL (0.0-0.8); MONO % 3.7 % (2.0-8.0); NEUTROPHILS # 11.8 10^3/uL (1.5-8.5); NEUTROPHILS % 90.3 % (36.0-66.0); PLATELET COUNT, AUTOMATED 302 10^3/uL (150-450); RED BLOOD COUNT 2.43 10^6/uL (4.00-5.40)
[2024-02-09 15:48] LABS: INR 0.82; PROTHROMBIN TIME 11.1 SECONDS (12.5-14.5)
[2024-02-09] MEDS ORDERED: IPRA0.00 INH (16:03)
[2024-02-09] MEDS ORDERED: MONT10TA97 PO (16:03)
[2024-02-09] MEDS ORDERED: NITR0.4S14 SL (16:03)
[2024-02-09] MEDS ORDERED: ASPI81TA26 PO (16:03)
[2024-02-09 16:04] LABS: THYROID STIMULATING HORMONE 0.796 uIU/ML (0.55-4.78)
[2024-02-09] MEDS ORDERED: HOME MED LIST COMPLETE! XX SCH (16:05)
[2024-02-09 16:16] LABS: ALBUMIN 2.6 G/DL (3.2-5.2); BILIRUBIN,DIRECT 0.3 MG/DL (<0.4); BILIRUBIN,TOTAL 0.4 MG/DL (0.3-1.2); CALCIUM LEVEL 8.9 MG/DL (8.3-10.6); CREATININE FOR GFR 2.59 MG/DL (0.55-1.30); GLOMERULAR FILTRATION RATE 19.4 (>39); MAGNESIUM LEVEL 1.6 MG/DL (1.8-2.4); POTASSIUM SERUM 3.1 MMOL/L (3.5-5.1); TOTAL PROTEIN 5.4 G/DL (5.7-8.2)
[2024-02-09] MEDS ORDERED: NITROGLYCERIN 0.4MG SUBL TABLET SL PRN (17:10)
[2024-02-09] MEDS ORDERED: ALBUTEROL SULFATE 2.5MG/0.5ML INH NEB SOLN INH PRN (17:10)
[2024-02-09] MEDS ORDERED: TRIAMCINOLONE ACET 0.1% CREAM 80GM TOP PRN ×2 (17:10→18:24)
[2024-02-09] MEDS ORDERED: MAALOX 30 ML SUSP *UDC PO PRN (17:10)
[2024-02-09] MEDS ORDERED: IPRATROPIUM 0.5MG/ALBUTEROL 2.5MG INH SOL UD 3ML (DUONEB) INH PRN (17:10)
[2024-02-09] MEDS ORDERED: MOM 30ML SUSPENSION UDC PO PRN (17:10)
[2024-02-09 18:01] LABS: PERCENT SATURATION 10.6 % (13.2-45.0)
[2024-02-09 18:03] LABS: FERRITIN 409.6 NG/ML (7.3-270.7); FOLATE 12.3 NG/ML (>5.4)
[2024-02-09] MEDS: SYMBICORT 160/4.5MCG INHALER 6GM INH SCH (19:47)
[2024-02-09 20:21] LABS: CREATININE,RANDOM URINE 63.6 MG/DL
[2024-02-09] MEDS: DOCUSATE SODIUM 100MG CAPSULE PO SCH (20:24)
[2024-02-09 20:25] LABS: TOTAL PROTEIN,RANDOM URINE 132.1 MG/DL (0.0-14.0)
[2024-02-09] MEDS: VITAMIN D 1,000 INTERNATIONAL UNITS TABLET PO SCH (20:25)
[2024-02-09] MEDS: GABAPENTIN 300 MG CAP PO SCH (20:25)
[2024-02-09] MEDS: ROSUVASTATIN 10 MG TAB (CRESTOR) PO SCH (20:25)
[2024-02-09] MEDS: POTASSIUM CHLORIDE 10MEQ SR TABLET PO ONE (20:26)
[2024-02-09] MEDS ORDERED: ADVAIR HFA 115/21MCG INHALER INH SCH (21:00)
[2024-02-09] MEDS: NS 1,000 ML IV SCH (22:12)
[2024-02-09] MEDS: MAG SULF 1GM/100ML (MAG RUN) 1 GM in IV 1 EA IV SCH (22:12)
[2024-02-10] VITALS (9 sets, daily range): BP systolic 146–190; BP diastolic 71–102; TEMP 96.7–97.5; O2SAT 94–97
[2024-02-10 05:36] LABS: BASO % 0.2 % (0.0-1.0); EOS % 0.3 % (0.0-3.0); LYMPH # 0.8 10^3/uL (1.5-5.0); LYMPH % 5.7 % (24.0-44.0); MEAN CORPUSCULAR HEMOGLOBIN 29.7 pg (27.0-33.0); MEAN CORPUSCULAR HGB CONC 33.9 g/dl (32.0-36.5); MEAN CORPUSCULAR VOLUME 87.4 fl (80.0-96.0); MONO % 7.2 % (2.0-8.0); NEUTROPHILS # 11.5 10^3/uL (1.5-8.5); NEUTROPHILS % 84.6 % (36.0-66.0); PLATELET COUNT, AUTOMATED 247 10^3/uL (150-450); RED BLOOD COUNT 3.81 10^6/uL (4.00-5.40); WHITE BLOOD COUNT 13.6 10^3/uL (4.0-10.0)
[2024-02-10 05:57] LABS: CALCIUM LEVEL 8.6 MG/DL (8.3-10.6); CREATININE FOR GFR 2.13 MG/DL (0.55-1.30); GLOMERULAR FILTRATION RATE 24.3 (>39); MAGNESIUM LEVEL 2.4 MG/DL (1.8-2.4)
[2024-02-10 06:00] LABS: HEMATOCRIT 33.3 % (36.0-47.0); HEMOGLOBIN 11.3 g/dl (12.0-15.5)
[2024-02-10] MEDS: KCL 10MEQ/100ML SWI (KRUN) 10 MEQ in IV 1 EA IV SCH (06:51)
[2024-02-10] MEDS: TIOTROPIUM INHALER/CAPSULE (SPIRIVA) INH SCH (08:20)
[2024-02-10] MEDS: MONTELUKAST 10 MG TAB PO SCH (09:08)
[2024-02-10] MEDS: METOPROLOL SUCC *XL* 25MG TAB (TopROL *XL*) PO SCH (09:08)
[2024-02-10] MEDS: ACETAMINOPHEN TAB 650MG DOSE (2X325MG) PO PRN (09:09)
[2024-02-10] MEDS: VENLAFAXINE **XR** 75MG CAPSULE PO SCH (09:09)
[2024-02-10] MEDS: predniSONE 10MG TAB PO SCH (09:09)
[2024-02-10] MEDS: POTASSIUM CHLORIDE 10MEQ SR TABLET PO ONE ×2 (09:09→14:44)
[2024-02-10] MEDS: OMEPRAZOLE 20MG CAP PO SCH (09:09)
[2024-02-10] MEDS: ASPIRIN 81MG ENTERIC TABLET PO SCH (09:10)
[2024-02-10 09:37] LABS: ALBUMIN 2.6 G/DL (3.2-5.2); CALCIUM LEVEL 8.5 MG/DL (8.3-10.6); CREATININE FOR GFR 1.98 MG/DL (0.55-1.30); GLOMERULAR FILTRATION RATE 26.5 (>39); PHOSPHORUS LEVEL 2.2 MG/DL (2.4-5.1); POTASSIUM SERUM 3.2 MMOL/L (3.5-5.1)
[2024-02-10] MEDS: MOM 30ML SUSPENSION UDC PO ONE (13:20)
[2024-02-10] MEDS: KCL 40MEQ in NS 1000ML 1,000 ML IV SCH (14:44)
[2024-02-10 16:45] LABS: CALCIUM LEVEL 8.2 MG/DL (8.3-10.6); CREATININE FOR GFR 1.87 MG/DL (0.55-1.30); GLOMERULAR FILTRATION RATE 28.3 (>39); POTASSIUM SERUM 4.2 MMOL/L (3.5-5.1)
[2024-02-10] MEDS: hydrALAZINE 20MG/ML 1ML VIAL IV PRN (16:45)
[2024-02-10] MEDS: SODIUM PHOSPHATE INJ 20 MMOL in D5W 250 ML IV ONE (16:46)
[2024-02-10] MEDS: POLYETHYLENE GLYCOL (MIRALAX) 238GM BOTTLE PO ONE (16:52)
[2024-02-10] MEDS: ALBUTEROL 90 MCG/ACT 8GM HFA INHALER INH PRN (18:24)
[2024-02-10 19:27] LABS: CALCIUM LEVEL 8.1 MG/DL (8.3-10.6); CREATININE FOR GFR 1.81 MG/DL (0.55-1.30); GLOMERULAR FILTRATION RATE 29.3 (>39)
[2024-02-11 04:02] VITALS: BP 165/81; TEMP 98.1; O2SAT 94
[2024-02-11 06:17] LABS: BASO # 0.1 10^3/uL (0.0-0.2); BASO % 0.4 % (0.0-1.0); EOS % 0.2 % (0.0-3.0); HEMATOCRIT 34.9 % (36.0-47.0); HEMOGLOBIN 11.7 g/dl (12.0-15.5); LYMPH % 7.9 % (24.0-44.0); MEAN CORPUSCULAR HGB CONC 33.5 g/dl (32.0-36.5); MEAN CORPUSCULAR VOLUME 89.5 fl (80.0-96.0); MONO # 0.7 10^3/uL (0.0-0.8); MONO % 5.4 % (2.0-8.0); NEUTROPHILS # 10.5 10^3/uL (1.5-8.5); NEUTROPHILS % 84.2 % (36.0-66.0); PLATELET COUNT, AUTOMATED 216 10^3/uL (150-450); WHITE BLOOD COUNT 12.4 10^3/uL (4.0-10.0)
[2024-02-11] MEDS ORDERED: POLYETHYLENE GLYCOL (MIRALAX) 238GM BOTTLE PO ONE (06:30)
[2024-02-11] MEDS: MIRALAX *UNIT DOSE* 17GM PACKET PO ONE ×2 (06:51)
[2024-02-11 06:52] LABS: CALCIUM LEVEL 8.6 MG/DL (8.3-10.6); CREATININE FOR GFR 1.62 MG/DL (0.55-1.30); GLOMERULAR FILTRATION RATE 33.3 (>39); MAGNESIUM LEVEL 1.9 MG/DL (1.8-2.4); POTASSIUM SERUM 3.8 MMOL/L (3.5-5.1)
[2024-02-11] MEDS: IPRATROPIUM 0.5MG/ALBUTEROL 2.5MG INH SOL UD 3ML (DUONEB) NEB SCH (08:03)
[2024-02-11 08:15] VITALS: BP 179/86; TEMP 98.1; O2SAT 96
[2024-02-11] MEDS: methylPREDNISolone 40MG 1ML VIAL IV SCH (08:40)
[2024-02-11 08:47] LABS: PROCALCITONIN 0.31 ng/ml
[2024-02-11] MEDS: ONDANSETRON 4MG ORAL DISINTEGRATING TAB PO PRN (08:53)
[2024-02-11 10:14] VITALS: BP 178/98
[2024-02-11] MEDS: LACTOBACILLUS ACIDOPHILUS CAP (BACID) PO SCH (10:29)
[2024-02-11] MEDS: CEFEPIME HCL 1 GM in D5W MINI-BAG PLUS 50 ML IV SCH (11:40)
[2024-02-11 11:55] VITALS: BP 152/72; TEMP 98.1; O2SAT 94
[2024-02-11] MEDS: DOXYCYCLINE HYCLATE 100 MG in D5W MINI-BAG PLUS 100 ML IV SCH (12:26)
[2024-02-11 16:38] VITALS: BP 153/74; TEMP 97; O2SAT 94
[2024-02-11] MEDS: VANCOMYCIN 125MG CAPSULE PO SCH (17:19)
[2024-02-11] MEDS: LR 1,000 ML IV SCH (17:19)
[2024-02-11] MEDS: NS 1,000 ML IV SCH (20:09)
[2024-02-11 20:22] VITALS: BP 166/84; TEMP 97.2; O2SAT 95
[2024-02-12 00:08] VITALS: BP 169/82; TEMP 97; O2SAT 96
[2024-02-12 04:03] VITALS: BP 137/65; TEMP 97.8; O2SAT 95
[2024-02-12 06:41] LABS: BASO % 0.3 % (0.0-1.0); HEMATOCRIT 32.6 % (36.0-47.0); LYMPH # 0.4 10^3/uL (1.5-5.0); LYMPH % 4.4 % (24.0-44.0); MEAN CORPUSCULAR HEMOGLOBIN 30.3 pg (27.0-33.0); MEAN CORPUSCULAR HGB CONC 33.7 g/dl (32.0-36.5); MEAN CORPUSCULAR VOLUME 89.8 fl (80.0-96.0); MONO # 0.1 10^3/uL (0.0-0.8); MONO % 0.8 % (2.0-8.0); NEUTROPHILS # 7.2 10^3/uL (1.5-8.5); NEUTROPHILS % 90.2 % (36.0-66.0); PLATELET COUNT, AUTOMATED 187 10^3/uL (150-450); RED BLOOD COUNT 3.63 10^6/uL (4.00-5.40); WHITE BLOOD COUNT 7.9 10^3/uL (4.0-10.0)
[2024-02-12 07:05] LABS: CALCIUM LEVEL 8.5 MG/DL (8.3-10.6); CREATININE FOR GFR 1.2 MG/DL (0.55-1.30); GLOMERULAR FILTRATION RATE 47.1 (>39); MAGNESIUM LEVEL 1.6 MG/DL (1.8-2.4); POTASSIUM SERUM 3.4 MMOL/L (3.5-5.1)
[2024-02-12 07:33] VITALS: BP 169/90; TEMP 97.4; O2SAT 96
[2024-02-12] MEDS: MAG SULF 1GM/100ML (MAG RUN) 1 GM in IV 1 EA IV ONE ×2 (08:25→13:33)
[2024-02-12] MEDS: POTASSIUM CHLORIDE 10MEQ SR TABLET PO ONE (08:27)
[2024-02-12 09:40] LABS: CLOSTRIDIUM DIFFICILE PCR POSITIVE (NEGATIVE)
[2024-02-12 11:42] VITALS: BP 169/87; TEMP 97.6; O2SAT 95
[2024-02-12] MEDS ORDERED: amLODIPine 5 MG TAB PO ONE (13:00)
[2024-02-12] MEDS: IPRATROPIUM 0.5MG/ALBUTEROL 2.5MG INH SOL UD 3ML (DUONEB) NEB PRN (13:02)
[2024-02-12] MEDS: LEVALBUTEROL 1.25MG 0.5ML CONCENTRATE NEB INH SCH (13:03)
[2024-02-12] MEDS: FIDAXOMICIN 200 MG TAB (DIFICID) PO SCH (13:33)
[2024-02-12] MEDS: IRBESARTAN 150MG TAB PO SCH (13:45)
[2024-02-12 16:00] VITALS: BP 146/74; TEMP 97.6; O2SAT 96
[2024-02-12 19:59] VITALS: BP 159/81; TEMP 97.8; O2SAT 99
[2024-02-12] MEDS: methylPREDNISolone 40MG 1ML VIAL IV SCH (20:40)
[2024-02-12] MEDS: HEPARIN SOD (PORCINE) 5000UNITS/ML 1ML VIAL/SYRINGE SQ SCH (20:40)
[2024-02-13] VITALS: BP 182/87; TEMP 97; O2SAT 96
[2024-02-13 03:51] VITALS: BP 134/67; TEMP 97.7; O2SAT 95
[2024-02-13 04:52] LABS: BASO % 0.2 % (0.0-1.0); HEMATOCRIT 29.9 % (36.0-47.0); LYMPH # 0.3 10^3/uL (1.5-5.0); LYMPH % 2.7 % (24.0-44.0); MEAN CORPUSCULAR HGB CONC 33.4 g/dl (32.0-36.5); MEAN CORPUSCULAR VOLUME 89.8 fl (80.0-96.0); MONO # 0.3 10^3/uL (0.0-0.8); MONO % 3.1 % (2.0-8.0); NEUTROPHILS # 8.9 10^3/uL (1.5-8.5); NEUTROPHILS % 89.3 % (36.0-66.0); PLATELET COUNT, AUTOMATED 172 10^3/uL (150-450); RED BLOOD COUNT 3.33 10^6/uL (4.00-5.40)
[2024-02-13 05:15] LABS: C REACTIVE PROTEIN QUANTITATIV 3.6 MG/DL (<1.0)
[2024-02-13 05:17] LABS: CALCIUM LEVEL 8.1 MG/DL (8.3-10.6); CREATININE FOR GFR 1.23 MG/DL (0.55-1.30); GLOMERULAR FILTRATION RATE 45.8 (>39); MAGNESIUM LEVEL 2.1 MG/DL (1.8-2.4); POTASSIUM SERUM 3.7 MMOL/L (3.5-5.1)
[2024-02-13 08:23] VITALS: BP 167/82; TEMP 97.4; O2SAT 98
[2024-02-13] MEDS ORDERED: DIFI200T PO (11:30)
[2024-02-13 11:41] VITALS: BP 167/82
[2024-02-13] MEDS: METOPROLOL SUCC *XL* 25MG TAB (TopROL *XL*) PO ONE (11:41)
[2024-02-13 12:12] VITALS: BP 160/81; TEMP 97.1; O2SAT 96
[2024-02-13 14:27] VITALS: BP 152/88; TEMP 98.4; O2SAT 97
[2024-02-13] MEDS ORDERED: NORV5TAB PO (15:12)
[2024-02-13] MEDS ORDERED: LOPR1TAB6 PO (15:12)
[2024-02-14] MEDS ORDERED: METOPROLOL SUCC (TopROL XL) 100MG *XL* TAB PO SCH (09:00)
== END 2024-02-13 17:04 | disposition home or self-care (01) | DRG 811 ==
LOC: M ED 13:20 → M ED INP 17:10 → M PCU 18:23
PROVIDERS: ADMIT Internal Medicine; ATTEND Internal Medicine
PROC: 30233N1 Transfusion of Nonautologous Red Blood Cells into Peripheral Vein, Percutaneous Approach (ICD-10-PCS; principal; 2024-02-09)
DX: D50.9 Iron deficiency anemia, unspecified (principal); J18.9 Pneumonia, unspecified organism; N17.9 Acute kidney failure, unspecified; C34.91 Malignant neoplasm of unspecified part of right bronchus or lung; J44.1 Chronic obstructive pulmonary disease with (acute) exacerbation; A04.72 Enterocolitis due to Clostridium difficile, not specified as recurrent; E87.6 Hypokalemia; I10 Essential (primary) hypertension; K21.9 Gastro-esophageal reflux disease without esophagitis; K52.9 Noninfective gastroenteritis and colitis, unspecified; Z92.3 Personal history of irradiation; Z92.21 Personal history of antineoplastic chemotherapy; Z67.11 Type A blood, Rh negative; Z79.82 Long term (current) use of aspirin; Z79.899 Other long term (current) drug therapy; Z88.8 Allergy status to other drugs, medicaments and biological substances; I44.7 Left bundle-branch block, unspecified; Z86.711 Personal history of pulmonary embolism; G62.9 Polyneuropathy, unspecified; F39 Unspecified mood [affective] disorder

== ENCOUNTER → 2024-03-07 | Outpatient (CLI) | payer MEDICARE ==
[~2024-03-07] MED LIST changes: +ASPI81TA26 PO; +DIFI200T PO; +IPRA0.00 INH; +LOPR1TAB6 PO; +NITR0.4S14 SL; +NORV5TAB PO; +POTA10CA70 PO
== END ==
LOC: M PLAIMG 08:38
PROVIDERS: ATTEND Internal Medicine Cardiovascular Disease
DX: Z95.2 Presence of prosthetic heart valve (principal)

== ENCOUNTER 2024-04-14 14:10 | Outpatient (CLI) | payer MEDICARE, MEDICAID ==
[~2024-04-14] VITALS: Ht 154.9 cm; Wt 59.0 kg
[2024-04-14 14:40] VITALS: BP 135/63; O2SAT 95
[2024-04-14] MEDS: ACETAMINOPHEN 650MG PO PRIOR TO INFUSION PO ONE (14:55)
[2024-04-14] MEDS: diphenhydrAMINE 25MG PO PRIOR TO INFUSION PO ONE (14:55)
[2024-04-14 15:33] VITALS: BP 134/60; TEMP 98; O2SAT 98
[2024-04-14 16:40] VITALS: BP 154/66; TEMP 96; O2SAT 99
[2024-04-14 17:05] VITALS: BP 162/76; O2SAT 98
== END 2024-04-14 17:05 ==
LOC: M INFU 14:10
PROVIDERS: ATTEND Internal Medicine Medical Oncology
DX: C34.90 Malignant neoplasm of unspecified part of unspecified bronchus or lung (principal); Z88.8 Allergy status to other drugs, medicaments and biological substances
CPT/HCPCS: 36430; P9016

== ENCOUNTER → 2024-05-22 | Outpatient (CLI) | payer MEDICAID, MEDICARE ==
[~2024-05-22] MED LIST changes: -ROSU40TA63 PO; +ROSU40TA81 PO
== END ==
LOC: M RAD 08:56
PROVIDERS: ATTEND Internal Medicine Medical Oncology
DX: C34.90 Malignant neoplasm of unspecified part of unspecified bronchus or lung (principal)

== ENCOUNTER → 2024-05-29 | Outpatient (REF) | payer MEDICARE ==
[2024-05-29 18:16] LABS: CREATININE,RANDOM URINE 78.6 MG/DL
[2024-05-29 18:27] LABS: TOTAL PROTEIN,RANDOM URINE 206.1 MG/DL (0.0-14.0)
== END ==
LOC: M LAB REF 17:07
PROVIDERS: ATTEND Internal Medicine Nephrology
DX: R80.9 Proteinuria, unspecified (principal)

== ENCOUNTER → 2024-06-06 | Outpatient (CLI) | payer MEDICARE ==
[~2024-06-06] VITALS: Ht 154.9 cm; Wt 59.0 kg
[~2024-06-06] MED LIST changes: +GABA-1172 PO; -GABA-282 PO; -KEYT1INJ IV; +LIDOCAINE 1% MDV 20ML VIAL As Ordered ONE; +MIDAZOLAM INJ 2MG/2ML VIAL As Ordered ONE; +PEMB100V2 IV; +ceFAZolin 2 GM/D5W 50 ML IV BAG As Ordered ONE; +fentaNYL 100 MCG/2 ML INJECTION As Ordered ONE
[2024-06-06 07:10] VITALS: TEMP 98
[2024-06-06] MEDS: ceFAZolin SOD 2 GM in IV 1 EA IV ONE (07:36)
[2024-06-06] MEDS: NS 1,000 ML IV SCH (07:37)
[2024-06-06 09:00] VITALS: BP 167/79; O2SAT 96
== END ==
LOC: M IRPRO 06:55
PROVIDERS: ATTEND Internal Medicine Medical Oncology
DX: C34.90 Malignant neoplasm of unspecified part of unspecified bronchus or lung (principal)
CPT/HCPCS: 36561; 99152; 99153; J0690; J1642; J2250; J3010

== ENCOUNTER 2024-06-09 11:52 | Day surgery (SDC) | payer MEDICARE ==
[~2024-06-09] VITALS: Ht 154.9 cm; Wt 58.5 kg
[~2024-06-09 11:52] MED LIST changes: -LIDOCAINE 1% MDV 20ML VIAL As Ordered ONE; -MIDAZOLAM INJ 2MG/2ML VIAL As Ordered ONE; +NS 1,000 ML IV ONE; -ceFAZolin 2 GM/D5W 50 ML IV BAG As Ordered ONE; -fentaNYL 100 MCG/2 ML INJECTION As Ordered ONE
[2024-06-09] MEDS ORDERED: LIDOCAINE 2% 100MG/5ML SDV (FOR ANES.) As Ordered ONE (13:46)
[2024-06-09] MEDS ORDERED: propofoL 200 MG/20 ML VIAL As Ordered ONE (13:46)
[2024-06-09] MEDS ORDERED: fentaNYL 100 MCG/2 ML INJECTION As Ordered ONE (13:47)
[2024-06-09] MEDS ORDERED: GLYCOPYRROLATE INJ 0.2 MG/ML 2 ML VIAL As Ordered ONE (14:44)
[2024-06-09 15:09] VITALS: TEMP 98.4
[2024-06-09 15:28] VITALS: BP 154/70; O2SAT 96
== END 2024-06-09 15:52 | disposition home or self-care (01) ==
LOC: M OPP 11:52
PROVIDERS: ATTEND Internal Medicine Gastroenterology
DX: D50.0 Iron deficiency anemia secondary to blood loss (chronic) (principal); K31.819 Angiodysplasia of stomach and duodenum without bleeding; K57.30 Diverticulosis of large intestine without perforation or abscess without bleeding; K64.8 Other hemorrhoids; D12.5 Benign neoplasm of sigmoid colon; D12.3 Benign neoplasm of transverse colon; Z85.118 Personal history of other malignant neoplasm of bronchus and lung; I10 Essential (primary) hypertension; E78.00 Pure hypercholesterolemia, unspecified; J44.9 Chronic obstructive pulmonary disease, unspecified; E05.90 Thyrotoxicosis, unspecified without thyrotoxic crisis or storm; Z79.899 Other long term (current) drug therapy; Z79.82 Long term (current) use of aspirin; Z79.811 Long term (current) use of aromatase inhibitors; Z79.52 Long term (current) use of systemic steroids; Z79.51 Long term (current) use of inhaled steroids; Z95.4 Presence of other heart-valve replacement; Z92.21 Personal history of antineoplastic chemotherapy; Z92.3 Personal history of irradiation; Z86.711 Personal history of pulmonary embolism
CPT/HCPCS: 43270; 45385; 88305; J1596; J3010

== ENCOUNTER → 2024-06-25 | Outpatient (REF) | payer MEDICARE, MEDICAID ==
[~2024-06-25] MED LIST changes: -NS 1,000 ML IV ONE
[2024-06-25 11:44] LABS: INR 0.87; PROTHROMBIN TIME 11.5 SECONDS (12.5-14.5)
== END ==
LOC: M LAB REF 11:13
PROVIDERS: ATTEND Internal Medicine Nephrology
DX: I10 Essential (primary) hypertension (principal); R80.9 Proteinuria, unspecified; N17.9 Acute kidney failure, unspecified

== ENCOUNTER → 2024-07-09 | Outpatient (CLI) | payer MEDICARE ==
[~2024-07-09] MED LIST changes: +ACETAMINOPHEN 325 MG TAB PO PRN; +LIDOCAINE 1% MDV 20ML VIAL As Ordered ONE; +MIDAZOLAM INJ 2MG/2ML VIAL As Ordered ONE; +NS 250 ML IV SCH; +PERCOCET 5MG/325MG TAB PO PRN; +fentaNYL 100 MCG/2 ML INJECTION As Ordered ONE
[2024-07-09 11:50] VITALS: TEMP 97.1
[2024-07-09 14:30] VITALS: BP 138/69; O2SAT 99
== END ==
LOC: M IRPRO 11:34
PROVIDERS: ATTEND Internal Medicine Nephrology
DX: N17.9 Acute kidney failure, unspecified (principal); R80.9 Proteinuria, unspecified; I10 Essential (primary) hypertension; C34.90 Malignant neoplasm of unspecified part of unspecified bronchus or lung
CPT/HCPCS: 50200; 76942; 88300; 99152; 99153; J1642; J2250; J3010

== ENCOUNTER 2024-07-16 12:05 | Inpatient (IN) | payer MEDICARE ==
[2024-07-16] VITALS (8 sets, daily range): BP systolic 133–160; BP diastolic 58–73; TEMP 97–98.4; O2SAT 92–100
[~2024-07-16] VITALS: Ht 154.9 cm; Wt 66.3 kg
[~2024-07-16 12:05] MED LIST changes: -ACETAMINOPHEN 325 MG TAB PO PRN; -LIDOCAINE 1% MDV 20ML VIAL As Ordered ONE; -MIDAZOLAM INJ 2MG/2ML VIAL As Ordered ONE; -NS 250 ML IV SCH; -PERCOCET 5MG/325MG TAB PO PRN; -fentaNYL 100 MCG/2 ML INJECTION As Ordered ONE
[2024-07-16 13:37] LABS: BASO % 0.2 % (0.0-1.0); LYMPH # 0.4 10^3/uL (1.5-5.0); LYMPH % 3.6 % (24.0-44.0); MEAN CORPUSCULAR HEMOGLOBIN 30.6 pg (27.0-33.0); MEAN CORPUSCULAR HGB CONC 32.5 g/dl (32.0-36.5); MEAN CORPUSCULAR VOLUME 94.3 fl (80.0-96.0); MONO # 0.5 10^3/uL (0.0-0.8); MONO % 4.2 % (2.0-8.0); NEUTROPHILS # 9.8 10^3/uL (1.5-8.5); NEUTROPHILS % 91.2 % (36.0-66.0); PLATELET COUNT, AUTOMATED 230 10^3/uL (150-450); RED BLOOD COUNT 2.09 10^6/uL (4.00-5.40); WHITE BLOOD COUNT 10.8 10^3/uL (4.0-10.0)
[2024-07-16 13:43] LABS: HEMOGLOBIN 6.4 g/dl (12.0-15.5)
[2024-07-16 13:47] LABS: HEMATOCRIT 19.7 % (36.0-47.0)
[2024-07-16 14:02] LABS: ALBUMIN 2.8 G/DL (3.2-5.2); BILIRUBIN,DIRECT 0.4 MG/DL (<0.4); BILIRUBIN,TOTAL 0.8 MG/DL (0.3-1.2); CALCIUM LEVEL 9.3 MG/DL (8.3-10.6); CREATININE FOR GFR 1.94 MG/DL (0.55-1.30); MAGNESIUM LEVEL 1.8 MG/DL (1.8-2.4); POTASSIUM SERUM 3.1 MMOL/L (3.5-5.1); TOTAL PROTEIN 5.5 G/DL (5.7-8.2)
[2024-07-16] MEDS: POTASSIUM CHLORIDE 10MEQ SR TABLET PO ONE (14:36)
[2024-07-16] MEDS: KCL 10MEQ/100ML SWI (KRUN) 10 MEQ in IV 1 EA IV ONE (14:36)
[2024-07-16] MEDS ORDERED: METO50TA7 PO (14:54)
[2024-07-16] MEDS ORDERED: ROSU40TA81 PO (14:54)
[2024-07-16] MEDS ORDERED: AMLO1TAB24 PO (14:54)
[2024-07-16] MEDS ORDERED: HOME MED LIST COMPLETE! XX SCH (14:55)
[2024-07-16] MEDS: PIPERACILLIN/TAZOBACTAM SOD 3.375 GM in DEXTROSE 5% (D5W) ADV/MINI-BAG 50 ML IV ONE (16:00)
[2024-07-16] MEDS ORDERED: IPRATROPIUM 0.5MG/ALBUTEROL 2.5MG INH SOL UD 3ML (DUONEB) NEB PRN (16:40)
[2024-07-16] MEDS ORDERED: MORPHINE 2 MG/ML 1ML VIAL IV PRN (17:25)
[2024-07-16] MEDS: NS 1,000 ML IV SCH (17:34)
[2024-07-16 17:55] LABS: PROCALCITONIN 0.49 ng/ml
[2024-07-16] MEDS: SYMBICORT 160/4.5MCG INHALER 6GM INH SCH (20:00)
[2024-07-16 20:58] LABS: HEMATOCRIT 30.4 % (36.0-47.0)
[2024-07-16 21:10] LABS: HEMOGLOBIN 10.3 g/dl (12.0-15.5)
[2024-07-16] MEDS: PIPERACILLIN/TAZOBACTAM SOD 2.25 GM in DEXTROSE 5% (D5W) ADV/MINI-BAG 50 ML IV SCH (21:18)
[2024-07-16] MEDS: ROSUVASTATIN 10 MG TAB (CRESTOR) PO SCH (21:18)
[2024-07-16] MEDS: METOPROLOL TART 50 MG TAB PO SCH (21:19)
[2024-07-16] MEDS: LACTOBACILLUS ACIDOPHILUS CAP (BACID) PO SCH (21:19)
[2024-07-17] MEDS: ACETAMINOPHEN 325 MG TAB PO ONE (02:05)
[2024-07-17 03:13] VITALS: BP 150/70; TEMP 97.4; O2SAT 95
[2024-07-17 05:42] LABS: HEMOGLOBIN 9.6 g/dl (12.0-15.5); MEAN CORPUSCULAR HEMOGLOBIN 29.5 pg (27.0-33.0); MEAN CORPUSCULAR HGB CONC 34.3 g/dl (32.0-36.5); MEAN CORPUSCULAR VOLUME 86.2 fl (80.0-96.0); PLATELET COUNT, AUTOMATED 184 10^3/uL (150-450); RED BLOOD COUNT 3.25 10^6/uL (4.00-5.40); WHITE BLOOD COUNT 7.3 10^3/uL (4.0-10.0)
[2024-07-17 06:07] LABS: CALCIUM LEVEL 8.8 MG/DL (8.3-10.6); CREATININE FOR GFR 1.64 MG/DL (0.55-1.30); GLOMERULAR FILTRATION RATE 32.8 (>39)
[2024-07-17] MEDS: TIOTROPIUM INHALER/CAPSULE (SPIRIVA) INH SCH (07:46)
[2024-07-17 08:00] VITALS: BP 140/80; TEMP 97.4; O2SAT 98
[2024-07-17] MEDS: VANCOMYCIN 125MG CAPSULE PO SCH (08:56)
[2024-07-17] MEDS: amLODIPine 5 MG TAB PO SCH (08:56)
[2024-07-17] MEDS: POTASSIUM CHLORIDE 10MEQ SR TABLET PO ONE (08:56)
[2024-07-17] MEDS: KCL 10MEQ/100ML SWI (KRUN) 10 MEQ in IV 1 EA IV SCH (08:57)
[2024-07-17] MEDS: predniSONE 10MG TAB PO SCH (08:57)
[2024-07-17] MEDS: MONTELUKAST 10 MG TAB PO SCH (08:57)
[2024-07-17] MEDS: VENLAFAXINE **XR** 75MG CAPSULE PO SCH (08:57)
[2024-07-17 11:19] VITALS: BP 151/71; TEMP 97.1; O2SAT 97
[2024-07-17] MEDS: FLUBLOK(EGGFREE) TRIVAL(24-25) VACCINE PF 0.5ML SYRINGE 18YRS & OLDER IM.IMMUN ONE (15:15)
[2024-07-17 15:48] VITALS: BP 151/70; TEMP 97.3; O2SAT 93
[2024-07-17 20:04] VITALS: BP 136/65; TEMP 97.4; O2SAT 96
[2024-07-18 03:39] VITALS: BP 148/74; TEMP 97.9; O2SAT 92
[2024-07-18 05:56] LABS: BASO % 0.5 % (0.0-1.0); EOS # 0.1 10^3/uL (0.0-0.5); EOS % 1.2 % (0.0-3.0); HEMATOCRIT 31.5 % (36.0-47.0); HEMOGLOBIN 10.3 g/dl (12.0-15.5); LYMPH # 0.8 10^3/uL (1.5-5.0); LYMPH % 9.3 % (24.0-44.0); MEAN CORPUSCULAR HEMOGLOBIN 29.3 pg (27.0-33.0); MEAN CORPUSCULAR HGB CONC 32.7 g/dl (32.0-36.5); MEAN CORPUSCULAR VOLUME 89.5 fl (80.0-96.0); MONO # 0.7 10^3/uL (0.0-0.8); MONO % 7.9 % (2.0-8.0); NEUTROPHILS # 6.9 10^3/uL (1.5-8.5); NEUTROPHILS % 79.5 % (36.0-66.0); PLATELET COUNT, AUTOMATED 242 10^3/uL (150-450); RED BLOOD COUNT 3.52 10^6/uL (4.00-5.40); WHITE BLOOD COUNT 8.6 10^3/uL (4.0-10.0)
[2024-07-18 06:06] LABS: CALCIUM LEVEL 8.9 MG/DL (8.3-10.6); CREATININE FOR GFR 1.4 MG/DL (0.55-1.30); GLOMERULAR FILTRATION RATE 39.4 (>39); POTASSIUM SERUM 3.4 MMOL/L (3.5-5.1)
[2024-07-18 07:50] VITALS: BP 170/79; TEMP 98; O2SAT 95
[2024-07-18] MEDS: POTASSIUM CHLORIDE 10MEQ SR TABLET PO ONE (08:12)
[2024-07-18 08:13] VITALS: BP 148/74
[2024-07-18] MEDS ORDERED: PROB250C PO (09:53)
[2024-07-18] MEDS ORDERED: METR-265 PO (09:53)
[2024-07-18] MEDS ORDERED: VANC1CAP6 PO (09:53)
[2024-07-18] MEDS ORDERED: CIPR-249 PO (09:53)
[2024-07-18] MEDS: ACETAMINOPHEN 500 MG TAB PO PRN (10:53)
[2024-07-18 12:04] VITALS: BP 168/72; TEMP 98.1; O2SAT 96
== END 2024-07-18 12:52 | disposition home or self-care (01) | DRG 920 ==
LOC: M ED 12:05 → M ED INP 16:27 → M PCU 18:30
PROVIDERS: ADMIT Internal Medicine; ATTEND Internal Medicine
PROC: 30233N1 Transfusion of Nonautologous Red Blood Cells into Peripheral Vein, Percutaneous Approach (ICD-10-PCS; principal; 2024-07-16)
DX: N99.840 Postprocedural hematoma of a genitourinary system organ or structure following a genitourinary system procedure (principal); K57.32 Diverticulitis of large intestine without perforation or abscess without bleeding; C34.11 Malignant neoplasm of upper lobe, right bronchus or lung; N17.9 Acute kidney failure, unspecified; M80.88XA Other osteoporosis with current pathological fracture, vertebra(e), initial encounter for fracture; J44.9 Chronic obstructive pulmonary disease, unspecified; F39 Unspecified mood [affective] disorder; I12.9 Hypertensive chronic kidney disease with stage 1 through stage 4 chronic kidney disease, or unspecified chronic kidney disease; N18.30 Chronic kidney disease, stage 3 unspecified; Z95.2 Presence of prosthetic heart valve; D63.0 Anemia in neoplastic disease; E78.5 Hyperlipidemia, unspecified; E87.6 Hypokalemia; D63.1 Anemia in chronic kidney disease; I35.0 Nonrheumatic aortic (valve) stenosis; Z86.711 Personal history of pulmonary embolism; G62.9 Polyneuropathy, unspecified; Z79.899 Other long term (current) drug therapy; Z79.82 Long term (current) use of aspirin; Z98.49 Cataract extraction status, unspecified eye

== ENCOUNTER → 2024-08-20 | Outpatient (CLI) | payer MEDICARE ==
[~2024-08-20] MED LIST changes: +AMLO1TAB24 PO; +CIPR-249 PO; +MAGN400T2 PO; +METH-1386 PO; +METH-1387 PO; -METH10TA PO; -METH25TAB PO; +METO50TA7 PO; +METR-265 PO; +POTA-136; +PROB250C PO; +PROHANCE 279.3MG/ML 15ML VIAL ONE
== END ==
LOC: M PLAIMG 09:14
PROVIDERS: ATTEND Internal Medicine Medical Oncology
DX: C34.90 Malignant neoplasm of unspecified part of unspecified bronchus or lung (principal)
CPT/HCPCS: 70553; A9576

== ENCOUNTER 2024-09-26 09:58 | Inpatient (IN) | payer MEDICAID, MEDICARE ==
[~2024-09-26] VITALS: Ht 154.9 cm; Wt 54.4 kg
[2024-09-26] VITALS (7 sets, daily range): BP systolic 124–148; BP diastolic 60–68; TEMP 97–98.4; O2SAT 95–98
[~2024-09-26 09:58] MED LIST changes: -POTA-136; +POTA-136 PO; -PROHANCE 279.3MG/ML 15ML VIAL ONE
[2024-09-26] MEDS: ALBUTEROL SULFATE 2.5MG/0.5ML INH NEB SOLN INH ONE (10:52)
[2024-09-26] MEDS: IPRATROPIUM 0.5MG/ALBUTEROL 2.5MG INH SOL UD 3ML (DUONEB) NEB ONE (10:52)
[2024-09-26 11:07] LABS: ABG BASE EXCESS -0.6 (-2.0-2.0); ABG HCO3 22.3 MMOL/L (22.0-26.0); ABG PARTIAL PRESSURE CO2 32.2 mmHg (35.0-45.0); ABG PARTIAL PRESSURE O2 94.3 mmHg (75.0-100.0); ABG TOTAL CO2 23.3 MMOL/L (23.0-31.0); ABG pH (ARTERIAL) 7.459 UNITS (7.350-7.450)
[2024-09-26 11:41] LABS: BASO % 0.1 % (0.0-1.0); HEMATOCRIT 23.8 % (36.0-47.0); HEMOGLOBIN 7.6 g/dl (12.0-15.5); LYMPH # 0.2 10^3/uL (1.5-5.0); MEAN CORPUSCULAR HEMOGLOBIN 30.5 pg (27.0-33.0); MEAN CORPUSCULAR HGB CONC 31.9 g/dl (32.0-36.5); MEAN CORPUSCULAR VOLUME 95.6 fl (80.0-96.0); MONO # 1.4 10^3/uL (0.0-0.8); MONO % 8.6 % (2.0-8.0); NEUTROPHILS # 14.3 10^3/uL (1.5-8.5); NEUTROPHILS % 89.5 % (36.0-66.0); PLATELET COUNT, AUTOMATED 204 10^3/uL (150-450); RED BLOOD COUNT 2.49 10^6/uL (4.00-5.40)
[2024-09-26] MEDS ORDERED: ISOVUE-370 76% 100ML VIAL As Ordered ONE (11:54)
[2024-09-26] MEDS: methylPREDNISolone 125MG 2ML VIAL IV ONE (11:59)
[2024-09-26 12:10] LABS: ALBUMIN 2.9 G/DL (3.2-5.2); BILIRUBIN,DIRECT 0.3 MG/DL (<0.4); BILIRUBIN,TOTAL 0.7 MG/DL (0.3-1.2); CALCIUM LEVEL 9.6 MG/DL (8.3-10.6); CK-MB VALUE MASS 1.3 NG/ML (<3.6); CREATININE FOR GFR 0.99 MG/DL (0.55-1.30); GLOMERULAR FILTRATION RATE 58.7 (>39); MB/CK RELATIVE INDEX 1.66 (< OR =4); TOTAL PROTEIN 5.4 G/DL (5.7-8.2)
[2024-09-26 12:11] LABS: THYROID STIMULATING HORMONE 0.51 uIU/ML (0.55-4.78); THYROXINE (T4) 11.3 UG/DL (4.5-10.9)
[2024-09-26] MEDS: cefTRIAXone SOD 2 GM in DEXTROSE 5% (D5W) ADV/MINI-BAG 50 ML IV ONE (12:15)
[2024-09-26 12:21] LABS: PROCALCITONIN 0.24 ng/ml
[2024-09-26 12:31] LABS: CK-MB VALUE MASS 2.2 NG/ML (<3.6)
[2024-09-26 12:32] LABS: MB/CK RELATIVE INDEX 3.23 (< OR =4)
[2024-09-26] MEDS: DOXYCYCLINE HYCLATE 100 MG in DEXTROSE 5% (D5W) MINI-BAG PLU 100 ML IV ONE (13:09)
[2024-09-26] MEDS ORDERED: ONDA-282 SL (14:11)
[2024-09-26] MEDS ORDERED: HOME MED LIST COMPLETE! XX SCH (14:15)
[2024-09-26] MEDS: FUROSEMIDE 40MG/4ML VIAL IV ONE (16:30)
[2024-09-26] MEDS: LEVALBUTEROL 1.25MG 0.5ML CONCENTRATE NEB NEB ONE (17:51)
[2024-09-26] MEDS: LEVALBUTEROL 1.25MG 0.5ML CONCENTRATE NEB INH PRN (20:11)
[2024-09-26 20:15] LABS: HEMATOCRIT 31.1 % (36.0-47.0); MEAN CORPUSCULAR HEMOGLOBIN 31.1 pg (27.0-33.0); MEAN CORPUSCULAR HGB CONC 34.1 g/dl (32.0-36.5); MEAN CORPUSCULAR VOLUME 91.2 fl (80.0-96.0); PLATELET COUNT, AUTOMATED 213 10^3/uL (150-450); RED BLOOD COUNT 3.41 10^6/uL (4.00-5.40); WHITE BLOOD COUNT 14.2 10^3/uL (4.0-10.0)
[2024-09-26 20:20] LABS: HEMOGLOBIN 10.6 g/dl (12.0-15.5)
[2024-09-26] MEDS: MONTELUKAST 10 MG TAB PO SCH (21:19)
[2024-09-26] MEDS: METOPROLOL TART 50 MG TAB PO SCH (21:19)
[2024-09-26] MEDS: GABAPENTIN 300 MG CAP PO SCH (21:19)
[2024-09-26] MEDS: DOXYCYCLINE HYCLATE 100MG TABLET PO SCH (21:20)
[2024-09-26] MEDS: ROSUVASTATIN 10 MG TAB (CRESTOR) PO SCH (21:20)
[2024-09-26] MEDS: ASPIRIN 81MG ENTERIC TABLET PO SCH (21:20)
[2024-09-26] MEDS: OMEPRAZOLE 20MG CAP PO SCH (21:20)
[2024-09-26] MEDS: IPRATROPIUM 0.5MG/ALBUTEROL 2.5MG INH SOL UD 3ML (DUONEB) NEB SCH (21:28)
[2024-09-26] MEDS: SYMBICORT 160/4.5MCG INHALER 6GM INH SCH (21:28)
[2024-09-27 04:15] VITALS: BP 138/63; TEMP 97; O2SAT 93
[2024-09-27 05:09] LABS: BASO % 0.1 % (0.0-1.0); EOS % 0.1 % (0.0-3.0); HEMATOCRIT 28.4 % (36.0-47.0); HEMOGLOBIN 9.7 g/dl (12.0-15.5); LYMPH # 0.3 10^3/uL (1.5-5.0); LYMPH % 3.3 % (24.0-44.0); MEAN CORPUSCULAR HEMOGLOBIN 30.9 pg (27.0-33.0); MEAN CORPUSCULAR HGB CONC 34.2 g/dl (32.0-36.5); MEAN CORPUSCULAR VOLUME 90.4 fl (80.0-96.0); MONO # 0.5 10^3/uL (0.0-0.8); MONO % 4.5 % (2.0-8.0); PLATELET COUNT, AUTOMATED 198 10^3/uL (150-450); RED BLOOD COUNT 3.14 10^6/uL (4.00-5.40); WHITE BLOOD COUNT 9.9 10^3/uL (4.0-10.0)
[2024-09-27 05:32] LABS: CALCIUM LEVEL 9.6 MG/DL (8.3-10.6); CREATININE FOR GFR 1.02 MG/DL (0.55-1.30); GLOMERULAR FILTRATION RATE 56.7 (>39); POTASSIUM SERUM 3.5 MMOL/L (3.5-5.1)
[2024-09-27] MEDS: predniSONE 20 MG TAB PO SCH (08:15)
[2024-09-27] MEDS: VENLAFAXINE **XR** 75MG CAPSULE PO SCH (08:15)
[2024-09-27] MEDS: amLODIPine 5 MG TAB PO SCH (08:16)
[2024-09-27 11:55] VITALS: BP 145/69; TEMP 97.7; O2SAT 96
[2024-09-27] MEDS: cefTRIAXone SOD 2 GM in DEXTROSE 5% (D5W) ADV/MINI-BAG 50 ML IV SCH (12:39)
[2024-09-27] MEDS: ANALGESIC BALM CRM 3OZ TOP SCH (16:29)
[2024-09-27 20:06] VITALS: BP 147/74; TEMP 96.8; O2SAT 95
[2024-09-27] MEDS: ACETAMINOPHEN 325 MG TAB PO PRN (20:57)
[2024-09-28 04:23] VITALS: BP 145/74; TEMP 97.5; O2SAT 93
[2024-09-28 04:44] LABS: BASO % 0.1 % (0.0-1.0); EOS % 0.3 % (0.0-3.0); HEMATOCRIT 27.4 % (36.0-47.0); LYMPH # 0.4 10^3/uL (1.5-5.0); LYMPH % 2.8 % (24.0-44.0); MEAN CORPUSCULAR HEMOGLOBIN 30.3 pg (27.0-33.0); MEAN CORPUSCULAR HGB CONC 32.8 g/dl (32.0-36.5); MEAN CORPUSCULAR VOLUME 92.3 fl (80.0-96.0); MONO # 0.9 10^3/uL (0.0-0.8); MONO % 6.8 % (2.0-8.0); NEUTROPHILS # 12.2 10^3/uL (1.5-8.5); PLATELET COUNT, AUTOMATED 217 10^3/uL (150-450); RED BLOOD COUNT 2.97 10^6/uL (4.00-5.40); WHITE BLOOD COUNT 13.7 10^3/uL (4.0-10.0)
[2024-09-28 05:07] LABS: CALCIUM LEVEL 9.3 MG/DL (8.3-10.6); CREATININE FOR GFR 1.08 MG/DL (0.55-1.30); GLOMERULAR FILTRATION RATE 53.1 (>39); POTASSIUM SERUM 3.2 MMOL/L (3.5-5.1)
[2024-09-28 07:56] VITALS: BP 147/78
[2024-09-28] MEDS: POTASSIUM CHLORIDE 10MEQ SR TABLET PO ONE (08:41)
[2024-09-28] MEDS: SODIUM CHLORIDE 0.9% INJ 10 ML SYR IV PRN (11:15)
[2024-09-28] MEDS ORDERED: CEFD300CAP PO (11:47)
[2024-09-28] MEDS ORDERED: PRED20TA PO (11:47)
[2024-09-28] MEDS ORDERED: DOXY100T PO (11:47)
[2024-09-28] MEDS ORDERED: PROBCAP14 PO (13:17)
== END 2024-09-28 14:01 | disposition home or self-care (01) | DRG 193 ==
LOC: M ED 09:58 → M ED INP 14:34 → M MSPAV 16:15
PROVIDERS: ADMIT Internal Medicine Nephrology; ATTEND Internal Medicine Nephrology
PROC: 30233N1 Transfusion of Nonautologous Red Blood Cells into Peripheral Vein, Percutaneous Approach (ICD-10-PCS; principal; 2024-09-26)
DX: J18.9 Pneumonia, unspecified organism (principal); K31.811 Angiodysplasia of stomach and duodenum with bleeding; J44.1 Chronic obstructive pulmonary disease with (acute) exacerbation; D62 Acute posthemorrhagic anemia; J96.11 Chronic respiratory failure with hypoxia; M80.88XA Other osteoporosis with current pathological fracture, vertebra(e), initial encounter for fracture; C34.90 Malignant neoplasm of unspecified part of unspecified bronchus or lung; K57.90 Diverticulosis of intestine, part unspecified, without perforation or abscess without bleeding; I10 Essential (primary) hypertension; I27.20 Pulmonary hypertension, unspecified; Z92.21 Personal history of antineoplastic chemotherapy; I35.0 Nonrheumatic aortic (valve) stenosis; Z79.52 Long term (current) use of systemic steroids; I65.23 Occlusion and stenosis of bilateral carotid arteries; Z79.82 Long term (current) use of aspirin; Z79.899 Other long term (current) drug therapy; F09 Unspecified mental disorder due to known physiological condition; Z86.711 Personal history of pulmonary embolism; I70.90 Unspecified atherosclerosis; Z98.49 Cataract extraction status, unspecified eye; Z87.891 Personal history of nicotine dependence

== ENCOUNTER 2024-10-12 16:49 | Emergency (ER) | payer MEDICARE ==
[~2024-10-12] VITALS: Ht 160 cm; Wt 54.4 kg
[~2024-10-12 16:49] MED LIST changes: +ACET-1349 PO; +CEFD1CAP9 PO; +CEFD300CAP PO; +MORP1SOL4 PO; +ONDA-282 SL; +PANT40TA29 PO; +POTA20LI16 PO; +PRED20TA PO; +SUCR1ORA PO
[2024-10-12 17:50] LABS: VENOUS BASE EXCESS 3.2 (-2.0-2.0); VENOUS HCO3 28.7 MMOL/L (23.0-27.0); VENOUS O2 SATURATION 61.9 % (60.0-80.0); VENOUS PARTIAL PRESSURE CO2 48.9 mmHg (38.0-50.0); VENOUS PARTIAL PRESSURE O2 33.2 mmHg (30.0-50.0); VENOUS PH 7.387 UNITS (7.330-7.430); VENOUS STANDARD HCO3 26.7 MMOL/L; VENOUS TOTAL CO2 30.2 MMOL/L (24.0-28.0)
[2024-10-12] MEDS: IPRATROPIUM 0.5MG/ALBUTEROL 2.5MG INH SOL UD 3ML (DUONEB) NEB ONE (17:52)
[2024-10-12] MEDS: ALBUTEROL SULFATE 2.5MG/0.5ML INH NEB SOLN INH ONE (17:52)
[2024-10-12 18:03] LABS: ALBUMIN 2.9 G/DL (3.2-5.2); BASO % 0.3 % (0.0-1.0); BILIRUBIN,DIRECT 0.3 MG/DL (<0.4); BILIRUBIN,TOTAL 0.8 MG/DL (0.3-1.2); CALCIUM LEVEL 8.7 MG/DL (8.3-10.6); CK-MB VALUE MASS 3.5 NG/ML (<3.6); CREATININE FOR GFR 0.98 MG/DL (0.55-1.30); EOS % 0.3 % (0.0-3.0); GLOMERULAR FILTRATION RATE 59.4 (>39); HEMATOCRIT 26.4 % (36.0-47.0); HEMOGLOBIN 8.5 g/dl (12.0-15.5); LYMPH # 0.5 10^3/uL (1.5-5.0); LYMPH % 5.7 % (24.0-44.0); MB/CK RELATIVE INDEX 4.54 (< OR =4); MEAN CORPUSCULAR HEMOGLOBIN 29.9 pg (27.0-33.0); MEAN CORPUSCULAR HGB CONC 32.2 g/dl (32.0-36.5); MONO # 0.5 10^3/uL (0.0-0.8); MONO % 6.6 % (2.0-8.0); NEUTROPHILS # 6.8 10^3/uL (1.5-8.5); NEUTROPHILS % 86.3 % (36.0-66.0); PLATELET COUNT, AUTOMATED 181 10^3/uL (150-450); POTASSIUM SERUM 3.2 MMOL/L (3.5-5.1); RED BLOOD COUNT 2.84 10^6/uL (4.00-5.40); TOTAL PROTEIN 5.2 G/DL (5.7-8.2); WHITE BLOOD COUNT 7.9 10^3/uL (4.0-10.0)
[2024-10-12 18:06] LABS: THYROID STIMULATING HORMONE 3.576 uIU/ML (0.55-4.78)
[2024-10-12 18:15] LABS: PROCALCITONIN 0.68 ng/ml
[2024-10-12] MEDS: cefTRIAXone SOD 2 GM in DEXTROSE 5% (D5W) ADV/MINI-BAG 50 ML IV ONE (18:55)
[2024-10-12] MEDS ORDERED: ISOVUE-370 76% 100ML VIAL As Ordered ONE (19:08)
[2024-10-12 19:55] LABS: CK-MB VALUE MASS 4.8 NG/ML (<3.6)
[2024-10-12 20:00] LABS: MB/CK RELATIVE INDEX 4.89 (< OR =4)
[2024-10-12] MEDS: ACETAMINOPHEN *IV* 500 MG in IV 1 EA IV ONE (20:11)
[2024-10-12 21:00] VITALS: TEMP 98.3
[2024-10-12 21:08] LABS: INR 0.95; PARTIAL THROMBOPLASTIN TIME 32.2 SECONDS (24.8-34.2)
[2024-10-12 21:15] LABS: CK-MB VALUE MASS 6.5 NG/ML (<3.6)
[2024-10-12 21:19] LABS: MB/CK RELATIVE INDEX 5.55 (< OR =4)
[2024-10-12 23:20] VITALS: BP 131/89; O2SAT 98
== END 2024-10-12 23:36 | disposition short-term general hospital (02) ==
LOC: EDBD 16:49 → M ED 16:49
DX: I21.4 Non-ST elevation (NSTEMI) myocardial infarction (principal); U07.1 COVID-19; K92.2 Gastrointestinal hemorrhage, unspecified; I10 Essential (primary) hypertension; J44.9 Chronic obstructive pulmonary disease, unspecified; Z87.891 Personal history of nicotine dependence; Z79.2 Long term (current) use of antibiotics; Z79.52 Long term (current) use of systemic steroids; Z79.899 Other long term (current) drug therapy; Z79.83 Long term (current) use of bisphosphonates
CPT/HCPCS: 71045; 71275; 80048; 80076; 82550; 82553; 82803; 83605; 83880; 84145; 84443; 84484; 85025; 85610; 85730; 87040; 87486; 87581; 87633; 87798; 93005; 93041; 94640; 94760; 96374; 96375; 99285; J0131; J0696; J1100; Q9967

== ENCOUNTER 2024-10-22 16:45 | Inpatient (IN) | payer MEDICARE ==
[~2024-10-22] VITALS: Ht 154.9 cm; Wt 53.2 kg
[2024-10-22] MEDS: SODIUM CHLORIDE 0.9% INJ 10 ML SYR IV SCH (09:00)
[2024-10-22] MEDS: methylPREDNISolone 125MG 2ML VIAL IV ONE (17:35)
[2024-10-22 17:59] LABS: BASO % 0.2 % (0.0-1.0); HEMOGLOBIN 7.6 g/dl (12.0-15.5); LYMPH # 0.1 10^3/uL (1.5-5.0); LYMPH % 0.7 % (24.0-44.0); MEAN CORPUSCULAR HEMOGLOBIN 30.6 pg (27.0-33.0); MEAN CORPUSCULAR VOLUME 92.7 fl (80.0-96.0); MONO # 0.6 10^3/uL (0.0-0.8); MONO % 3.1 % (2.0-8.0); NEUTROPHILS # 16.6 10^3/uL (1.5-8.5); PLATELET COUNT, AUTOMATED 185 10^3/uL (150-450); RED BLOOD COUNT 2.48 10^6/uL (4.00-5.40); WHITE BLOOD COUNT 17.6 10^3/uL (4.0-10.0)
[2024-10-22] MEDS: IPRATROPIUM 0.5MG/ALBUTEROL 2.5MG INH SOL UD 3ML (DUONEB) NEB ONE (18:14)
[2024-10-22] MEDS: ALBUTEROL SULFATE 2.5MG/0.5ML INH NEB SOLN NEB ONE (18:15)
[2024-10-22 18:25] LABS: ALBUMIN 2.6 G/DL (3.2-5.2); ALKALINE PHOSPHATASE 88 U/L (35-104); ALT/SGPT 29 U/L (7.0-40); AST/SGOT 33 U/L (<34); BILIRUBIN,DIRECT 0.3 MG/DL (<0.4); BILIRUBIN,TOTAL 0.6 MG/DL (0.3-1.2); BLOOD UREA NITROGEN 22 MG/DL (9-23); CALCIUM LEVEL 8.8 MG/DL (8.3-10.6); CARBON DIOXIDE LEVEL 32 MMOL/L (20-31); CHLORIDE LEVEL 100 MMOL/L (98-107); CREATININE FOR GFR 0.87 MG/DL (0.55-1.30); GLOMERULAR FILTRATION RATE > 60.0 (>39); GLUCOSE, FASTING 57 MG/DL (74-106); POTASSIUM SERUM 3.3 MMOL/L (3.5-5.1); SODIUM LEVEL 139 MMOL/L (136-145)
[2024-10-22] MEDS: cefTRIAXone SOD 1 GM in DEXTROSE 5% (D5W) ADV/MINI-BAG 50 ML IV ONE (19:45)
[2024-10-22] MEDS: ONDANSETRON 4MG 2ML VIAL IV ONE (20:05)
[2024-10-22] MEDS: MORPHINE 2 MG/ML 1ML VIAL IV PRN (20:06)
[2024-10-22 20:17] VITALS: BP 146/64; TEMP 97.2; O2SAT 99
[2024-10-22 20:39] VITALS: BP 142/75; TEMP 97.4; O2SAT 99
[2024-10-22] MEDS ORDERED: ISOVUE-370 76% 100ML VIAL As Ordered ONE (21:15)
[2024-10-22] MEDS ORDERED: SODIUM CHLORIDE 0.9% INJ 10 ML SYR IV PRN (21:25)
[2024-10-22] MEDS ORDERED: SUCR1ORA2 PO (21:39)
[2024-10-22] MEDS ORDERED: MORP1SOL4 PO (21:39)
[2024-10-22] MEDS ORDERED: POTA10CA70 PO (21:39)
[2024-10-22] MEDS ORDERED: HOME MED LIST COMPLETE! XX SCH (21:45)
[2024-10-22 21:57] VITALS: BP 152/72; TEMP 97.2; O2SAT 100
[2024-10-22 23:29] VITALS: BP 159/69; TEMP 96.9; O2SAT 99
[2024-10-22] MEDS: FUROSEMIDE 20MG/2ML VIAL IV ONE (23:38)
[2024-10-22] MEDS: AZITHROMYCIN INJ 500 MG, VIAL MATE ADAPTER 1 EACH in NS 250 ML IV ONE (23:38)
[2024-10-22 23:51] VITALS: BP 149/58; TEMP 97; O2SAT 98
[2024-10-23] VITALS (9 sets, daily range): BP systolic 151–174; BP diastolic 70–84; TEMP 97–98.1; O2SAT 93–100
[2024-10-23] MEDS: OCTREOTIDE ACETATE 100MCG/ML VIAL **IV ADMINISTRATION ONLY IV ONE (01:12)
[2024-10-23] MEDS: OCTREOTIDE ACETATE 1,200 MCG in NS 238.8 ML IV SCH (01:13)
[2024-10-23] MEDS: ONDANSETRON 4MG ORAL DISINTEGRATING TAB PO PRN (01:14)
[2024-10-23] MEDS ORDERED: NALOXONE INJ 0.4MG/1ML VIAL IV PRN (01:50)
[2024-10-23] MEDS: MORPHINE 2 MG/ML 1ML VIAL IV PRN (02:01)
[2024-10-23 02:36] LABS: HEMATOCRIT 33.4 % (36.0-47.0)
[2024-10-23 02:42] LABS: HEMOGLOBIN 11.3 g/dl (12.0-15.5)
[2024-10-23 02:44] LABS: ERYTHROCYTE SEDIMENTATION RATE 16 mm/hr (0-30)
[2024-10-23 02:48] LABS: INR 0.88; PROTHROMBIN TIME 12.2 SECONDS (12.5-14.5)
[2024-10-23 02:55] LABS: BLOOD UREA NITROGEN 21 MG/DL (9-23); C REACTIVE PROTEIN QUANTITATIV 6.72 MG/DL (<1.0); CALCIUM LEVEL 8.1 MG/DL (8.3-10.6); CARBON DIOXIDE LEVEL 31 MMOL/L (20-31); CHLORIDE LEVEL 99 MMOL/L (98-107); CREATININE FOR GFR 0.88 MG/DL (0.55-1.30); GLOMERULAR FILTRATION RATE > 60.0 (>39); GLUCOSE, FASTING 96 MG/DL (74-106); MAGNESIUM LEVEL 2.3 MG/DL (1.8-2.4); POTASSIUM SERUM 3.1 MMOL/L (3.5-5.1); SODIUM LEVEL 141 MMOL/L (136-145)
[2024-10-23 03:13] LABS: PROCALCITONIN 0.64 ng/ml
[2024-10-23] MEDS ORDERED: KCL 10MEQ/100ML SWI (KRUN) 10 MEQ in IV 1 EA IV SCH (03:30)
[2024-10-23] MEDS: KCL 20MEQ IN 100ML SWI (KRUN) 20 MEQ in IV 1 EA IV ONE (03:47)
[2024-10-23] MEDS: ACETAMINOPHEN 325 MG TAB PO PRN (04:04)
[2024-10-23] MEDS: methylPREDNISolone 125MG 2ML VIAL IV SCH (05:39)
[2024-10-23 05:47] LABS: HEMATOCRIT 31.6 % (36.0-47.0); HEMOGLOBIN 10.6 g/dl (12.0-15.5); MEAN CORPUSCULAR HEMOGLOBIN 29.8 pg (27.0-33.0); MEAN CORPUSCULAR HGB CONC 33.5 g/dl (32.0-36.5); MEAN CORPUSCULAR VOLUME 88.8 fl (80.0-96.0); PLATELET COUNT, AUTOMATED 143 10^3/uL (150-450); RED BLOOD COUNT 3.56 10^6/uL (4.00-5.40); WHITE BLOOD COUNT 13.6 10^3/uL (4.0-10.0)
[2024-10-23 06:44] LABS: BLOOD UREA NITROGEN 21 MG/DL (9-23); CALCIUM LEVEL 7.9 MG/DL (8.3-10.6); CARBON DIOXIDE LEVEL 31 MMOL/L (20-31); CHLORIDE LEVEL 97 MMOL/L (98-107); CREATININE FOR GFR 0.89 MG/DL (0.55-1.30); GLOMERULAR FILTRATION RATE > 60.0 (>39); GLUCOSE, FASTING 103 MG/DL (74-106); MAGNESIUM LEVEL 2.2 MG/DL (1.8-2.4); POTASSIUM SERUM 4.2 MMOL/L (3.5-5.1); SODIUM LEVEL 140 MMOL/L (136-145)
[2024-10-23] MEDS: PANTOPRAZOLE 40MG VIAL IV SCH ×2 (09:00→09:46)
[2024-10-23] MEDS: SODIUM CHLORIDE 0.9% INJ 10 ML SYR IV SCH (09:46)
[2024-10-23 11:29] LABS: HEMATOCRIT 31.9 % (36.0-47.0)
[2024-10-23] MEDS: LEVALBUTEROL 1.25MG 0.5ML CONCENTRATE NEB INH SCH (11:31)
[2024-10-23 11:56] LABS: BLOOD UREA NITROGEN 24 MG/DL (9-23); CALCIUM LEVEL 8.3 MG/DL (8.3-10.6); CARBON DIOXIDE LEVEL 32 MMOL/L (20-31); CHLORIDE LEVEL 98 MMOL/L (98-107); CREATININE FOR GFR 0.89 MG/DL (0.55-1.30); GLOMERULAR FILTRATION RATE > 60.0 (>39); GLUCOSE, FASTING 103 MG/DL (74-106); POTASSIUM SERUM 3.4 MMOL/L (3.5-5.1); SODIUM LEVEL 141 MMOL/L (136-145)
[2024-10-23] MEDS: KCL 10MEQ/100ML SWI (KRUN) 10 MEQ in IV 1 EA IV SCH (12:40)
[2024-10-23 17:16] LABS: HEMATOCRIT 32.1 % (36.0-47.0); HEMOGLOBIN 10.8 g/dl (12.0-15.5)
[2024-10-23] MEDS: AZITHROMYCIN 250MG TABLET PO SCH (17:18)
[2024-10-23 17:25] LABS: BLOOD UREA NITROGEN 24 MG/DL (9-23); CALCIUM LEVEL 8.7 MG/DL (8.3-10.6); CARBON DIOXIDE LEVEL 29 MMOL/L (20-31); CHLORIDE LEVEL 100 MMOL/L (98-107); CREATININE FOR GFR 0.93 MG/DL (0.55-1.30); GLOMERULAR FILTRATION RATE > 60.0 (>39); GLUCOSE, FASTING 200 MG/DL (74-106); POTASSIUM SERUM 3.8 MMOL/L (3.5-5.1); SODIUM LEVEL 139 MMOL/L (136-145)
[2024-10-23] MEDS ORDERED: NITROGLYCERIN 0.4MG SUBL TABLET SL PRN (18:10)
[2024-10-23] MEDS: VITAMIN D 1,000 INTERNATIONAL UNITS TABLET PO SCH (18:47)
[2024-10-23] MEDS: SYMBICORT 160/4.5MCG INHALER 6GM INH SCH (19:04)
[2024-10-23] MEDS: cefTRIAXone SOD 1 GM in DEXTROSE 5% (D5W) ADV/MINI-BAG 50 ML IV SCH (20:19)
[2024-10-23] MEDS: MONTELUKAST 10 MG TAB PO SCH (20:20)
[2024-10-23] MEDS: MORPHINE 10MG/0.5ML ORAL CONCENTRATE SOLUTION U/D SL PRN (20:20)
[2024-10-23] MEDS: ROSUVASTATIN 10 MG TAB (CRESTOR) PO SCH (20:21)
[2024-10-23] MEDS: GABAPENTIN 300 MG CAP PO SCH (20:21)
[2024-10-23] MEDS: METOPROLOL TART 50 MG TAB PO SCH (20:21)
[2024-10-23] MEDS ORDERED: AZITHROMYCIN INJ 500 MG, VIAL MATE ADAPTER 1 EACH in NS 250 ML IV SCH (22:00)
[2024-10-23 23:16] LABS: HEMATOCRIT 30.3 % (36.0-47.0); HEMOGLOBIN 10.1 g/dl (12.0-15.5)
[2024-10-23 23:38] LABS: BLOOD UREA NITROGEN 25 MG/DL (9-23); CALCIUM LEVEL 8.7 MG/DL (8.3-10.6); CARBON DIOXIDE LEVEL 33 MMOL/L (20-31); CHLORIDE LEVEL 97 MMOL/L (98-107); CREATININE FOR GFR 0.91 MG/DL (0.55-1.30); GLOMERULAR FILTRATION RATE > 60.0 (>39); GLUCOSE, FASTING 230 MG/DL (74-106); POTASSIUM SERUM 3.7 MMOL/L (3.5-5.1); SODIUM LEVEL 138 MMOL/L (136-145)
[2024-10-24] VITALS (9 sets, daily range): BP systolic 147–181; BP diastolic 67–86; TEMP 96.8–99.1; O2SAT 96–99
[2024-10-24 04:32] LABS: HEMOGLOBIN 9.7 g/dl (12.0-15.5)
[2024-10-24 05:02] LABS: BLOOD UREA NITROGEN 24 MG/DL (9-23); CALCIUM LEVEL 8.5 MG/DL (8.3-10.6); CARBON DIOXIDE LEVEL 33 MMOL/L (20-31); CHLORIDE LEVEL 102 MMOL/L (98-107); CREATININE FOR GFR 0.92 MG/DL (0.55-1.30); GLOMERULAR FILTRATION RATE > 60.0 (>39); GLUCOSE, FASTING 173 MG/DL (74-106); POTASSIUM SERUM 3.5 MMOL/L (3.5-5.1); SODIUM LEVEL 140 MMOL/L (136-145)
[2024-10-24 08:04] LABS: C REACTIVE PROTEIN QUANTITATIV 5.95 MG/DL (<1.0)
[2024-10-24 08:15] LABS: PROCALCITONIN 0.37 ng/ml
[2024-10-24 08:21] LABS: ERYTHROCYTE SEDIMENTATION RATE 7 mm/hr (0-30)
[2024-10-24 08:26] LABS: BASO % 0.1 % (0.0-1.0); LYMPH # 0.1 10^3/uL (1.5-5.0); LYMPH % 0.4 % (24.0-44.0); MEAN CORPUSCULAR HEMOGLOBIN 30.2 pg (27.0-33.0); MEAN CORPUSCULAR HGB CONC 33.6 g/dl (32.0-36.5); MEAN CORPUSCULAR VOLUME 90.1 fl (80.0-96.0); MONO # 0.3 10^3/uL (0.0-0.8); MONO % 2.4 % (2.0-8.0); NEUTROPHILS # 13.2 10^3/uL (1.5-8.5); NEUTROPHILS % 95.9 % (36.0-66.0); PLATELET COUNT, AUTOMATED 141 10^3/uL (150-450); RED BLOOD COUNT 3.24 10^6/uL (4.00-5.40); WHITE BLOOD COUNT 13.8 10^3/uL (4.0-10.0)
[2024-10-24] MEDS: POTASSIUM CHLORIDE 10MEQ SR TABLET PO ONE (08:47)
[2024-10-24] MEDS: amLODIPine 5 MG TAB PO SCH (08:47)
[2024-10-24] MEDS: VENLAFAXINE **XR** 75MG CAPSULE PO SCH (08:56)
[2024-10-24] MEDS: IRBESARTAN 150MG TAB PO SCH (10:14)
[2024-10-24 17:45] LABS: HEMATOCRIT 31.1 % (36.0-47.0); HEMOGLOBIN 10.3 g/dl (12.0-15.5)
[2024-10-24 18:08] LABS: BLOOD UREA NITROGEN 27 MG/DL (9-23); CALCIUM LEVEL 8.6 MG/DL (8.3-10.6); CARBON DIOXIDE LEVEL 32 MMOL/L (20-31); CHLORIDE LEVEL 99 MMOL/L (98-107); CREATININE FOR GFR 0.84 MG/DL (0.55-1.30); GLOMERULAR FILTRATION RATE > 60.0 (>39); GLUCOSE, FASTING 227 MG/DL (74-106); POTASSIUM SERUM 4.1 MMOL/L (3.5-5.1); SODIUM LEVEL 139 MMOL/L (136-145)
[2024-10-25 04:03] VITALS: BP 166/88; TEMP 98.3; O2SAT 100
[2024-10-25 05:42] LABS: BASO % 0.1 % (0.0-1.0); EOS % 0.1 % (0.0-3.0); HEMATOCRIT 28.7 % (36.0-47.0); HEMOGLOBIN 9.6 g/dl (12.0-15.5); LYMPH % 0.3 % (24.0-44.0); MEAN CORPUSCULAR HEMOGLOBIN 30.2 pg (27.0-33.0); MEAN CORPUSCULAR HGB CONC 33.4 g/dl (32.0-36.5); MEAN CORPUSCULAR VOLUME 90.3 fl (80.0-96.0); MONO # 0.3 10^3/uL (0.0-0.8); NEUTROPHILS # 12.7 10^3/uL (1.5-8.5); NEUTROPHILS % 96.4 % (36.0-66.0); PLATELET COUNT, AUTOMATED 125 10^3/uL (150-450); RED BLOOD COUNT 3.18 10^6/uL (4.00-5.40); WHITE BLOOD COUNT 13.2 10^3/uL (4.0-10.0)
[2024-10-25 06:05] LABS: BLOOD UREA NITROGEN 24 MG/DL (9-23); CALCIUM LEVEL 8.7 MG/DL (8.3-10.6); CARBON DIOXIDE LEVEL 34 MMOL/L (20-31); CHLORIDE LEVEL 102 MMOL/L (98-107); GLOMERULAR FILTRATION RATE > 60.0 (>39); GLUCOSE, FASTING 159 MG/DL (74-106); SODIUM LEVEL 142 MMOL/L (136-145)
[2024-10-25 07:06] VITALS: O2SAT 99
[2024-10-25 08:00] VITALS: BP 176/85; TEMP 97.9; O2SAT 95
[2024-10-25 12:23] LABS: MAGNESIUM LEVEL 2.4 MG/DL (1.8-2.4)
[2024-10-25] MEDS: TIOTROPIUM INHALER/CAPSULE (SPIRIVA) INH SCH (15:39)
[2024-10-25] MEDS: methylPREDNISolone 40MG 1ML VIAL IV SCH (18:08)
[2024-10-25 20:00] VITALS: BP 163/78; TEMP 98.2; O2SAT 98
[2024-10-25] MEDS: PANTOPRAZOLE 40MG VIAL IV SCH (20:32)
[2024-10-25] MEDS: amLODIPine 5 MG TAB PO SCH (20:34)
[2024-10-26 04:00] VITALS: BP 154/73; TEMP 97.4; O2SAT 96
[2024-10-26 07:47] LABS: BASO % 0.2 % (0.0-1.0); EOS % 0.1 % (0.0-3.0); HEMOGLOBIN 10.4 g/dl (12.0-15.5); LYMPH # 0.1 10^3/uL (1.5-5.0); LYMPH % 0.3 % (24.0-44.0); MEAN CORPUSCULAR HEMOGLOBIN 30.1 pg (27.0-33.0); MEAN CORPUSCULAR HGB CONC 33.5 g/dl (32.0-36.5); MEAN CORPUSCULAR VOLUME 89.9 fl (80.0-96.0); MONO # 0.3 10^3/uL (0.0-0.8); MONO % 1.8 % (2.0-8.0); NEUTROPHILS % 96.4 % (36.0-66.0); PLATELET COUNT, AUTOMATED 126 10^3/uL (150-450); RED BLOOD COUNT 3.45 10^6/uL (4.00-5.40); WHITE BLOOD COUNT 17.6 10^3/uL (4.0-10.0)
[2024-10-26 08:10] LABS: MAGNESIUM LEVEL 2.2 MG/DL (1.8-2.4)
[2024-10-26 08:11] LABS: BLOOD UREA NITROGEN 23 MG/DL (9-23); C REACTIVE PROTEIN QUANTITATIV 1.75 MG/DL (<1.0); CALCIUM LEVEL 8.8 MG/DL (8.3-10.6); CARBON DIOXIDE LEVEL 33 MMOL/L (20-31); CHLORIDE LEVEL 100 MMOL/L (98-107); GLOMERULAR FILTRATION RATE > 60.0 (>39); GLUCOSE, FASTING 128 MG/DL (74-106); POTASSIUM SERUM 3.8 MMOL/L (3.5-5.1); SODIUM LEVEL 140 MMOL/L (136-145)
[2024-10-26 08:18] LABS: PROCALCITONIN 0.13 ng/ml
[2024-10-26 09:17] VITALS: BP 156/82; TEMP 97; O2SAT 95
[2024-10-26] MEDS: LEVALBUTEROL 1.25MG 0.5ML CONCENTRATE NEB INH SCH (13:18)
[2024-10-26] MEDS: SODIUM CHLORIDE HYPERTONIC 3% 4ML NEB SOL INH SCH (13:18)
[2024-10-26 17:35] VITALS: BP 164/84; TEMP 96.5; O2SAT 96
[2024-10-26 20:00] VITALS: BP 177/82; TEMP 97.1; O2SAT 99
[2024-10-26] MEDS: FORMOTEROL FUMARATE 20 MCG/2 ML INHALATION SOLUTION (PERFOROMIST) INH SCH (20:03)
[2024-10-26] MEDS: BUDESONIDE 0.5 MG/2 ML INHALATION SUSPENSION NEB SCH (20:04)
[2024-10-27] VITALS: BP 177/86; TEMP 98; O2SAT 93
[2024-10-27 04:00] VITALS: BP 176/84; TEMP 97.2; O2SAT 96
[2024-10-27 05:18] LABS: BASO % 0.1 % (0.0-1.0); EOS % 0.1 % (0.0-3.0); HEMATOCRIT 29.9 % (36.0-47.0); HEMOGLOBIN 10.2 g/dl (12.0-15.5); LYMPH # 0.1 10^3/uL (1.5-5.0); LYMPH % 0.3 % (24.0-44.0); MEAN CORPUSCULAR HEMOGLOBIN 30.4 pg (27.0-33.0); MEAN CORPUSCULAR HGB CONC 34.1 g/dl (32.0-36.5); MONO # 0.4 10^3/uL (0.0-0.8); MONO % 2.4 % (2.0-8.0); NEUTROPHILS # 14.6 10^3/uL (1.5-8.5); NEUTROPHILS % 95.9 % (36.0-66.0); PLATELET COUNT, AUTOMATED 118 10^3/uL (150-450); RED BLOOD COUNT 3.36 10^6/uL (4.00-5.40); WHITE BLOOD COUNT 15.2 10^3/uL (4.0-10.0)
[2024-10-27 05:49] LABS: BLOOD UREA NITROGEN 25 MG/DL (9-23); CALCIUM LEVEL 8.7 MG/DL (8.3-10.6); CARBON DIOXIDE LEVEL 33 MMOL/L (20-31); CHLORIDE LEVEL 100 MMOL/L (98-107); CREATININE FOR GFR 0.73 MG/DL (0.55-1.30); GLOMERULAR FILTRATION RATE > 60.0 (>39); GLUCOSE, FASTING 100 MG/DL (74-106); MAGNESIUM LEVEL 2.3 MG/DL (1.8-2.4); POTASSIUM SERUM 3.6 MMOL/L (3.5-5.1); SODIUM LEVEL 139 MMOL/L (136-145)
[2024-10-27 08:00] VITALS: BP 171/81; TEMP 97.5; O2SAT 97
[2024-10-27] MEDS: MIRALAX *UNIT DOSE* 17GM PACKET PO ONE (08:00)
[2024-10-27] MEDS: POTASSIUM CHLORIDE 10MEQ SR TABLET PO ONE (10:53)
[2024-10-27] MEDS: IRBESARTAN 150MG TAB PO SCH (10:53)
[2024-10-27] MEDS: CEFDINIR 300 MG CAP (OMNICEF) PO SCH (11:15)
[2024-10-27 13:52] VITALS: BP 178/88; TEMP 97.9; O2SAT 95
[2024-10-27] MEDS: FUROSEMIDE 40MG/4ML VIAL IV ONE (18:52)
[2024-10-27 23:45] VITALS: BP 159/79; TEMP 97.5; O2SAT 94
[2024-10-28 04:35] VITALS: BP 157/78; TEMP 97.3; O2SAT 95
[2024-10-28 05:32] LABS: BASO % 0.1 % (0.0-1.0); HEMATOCRIT 28.2 % (36.0-47.0); HEMOGLOBIN 9.4 g/dl (12.0-15.5); LYMPH # 0.1 10^3/uL (1.5-5.0); LYMPH % 0.5 % (24.0-44.0); MEAN CORPUSCULAR HEMOGLOBIN 29.3 pg (27.0-33.0); MEAN CORPUSCULAR HGB CONC 33.3 g/dl (32.0-36.5); MEAN CORPUSCULAR VOLUME 87.9 fl (80.0-96.0); MONO # 0.3 10^3/uL (0.0-0.8); MONO % 2.4 % (2.0-8.0); NEUTROPHILS # 12.2 10^3/uL (1.5-8.5); NEUTROPHILS % 95.9 % (36.0-66.0); PLATELET COUNT, AUTOMATED 114 10^3/uL (150-450); RED BLOOD COUNT 3.21 10^6/uL (4.00-5.40); WHITE BLOOD COUNT 12.7 10^3/uL (4.0-10.0)
[2024-10-28 06:19] LABS: BLOOD UREA NITROGEN 27 MG/DL (9-23); CALCIUM LEVEL 8.3 MG/DL (8.3-10.6); CARBON DIOXIDE LEVEL 36 MMOL/L (20-31); CHLORIDE LEVEL 98 MMOL/L (98-107); CREATININE FOR GFR 0.68 MG/DL (0.55-1.30); GLOMERULAR FILTRATION RATE > 60.0 (>39); GLUCOSE, FASTING 96 MG/DL (74-106); MAGNESIUM LEVEL 2.3 MG/DL (1.8-2.4); POTASSIUM SERUM 3.3 MMOL/L (3.5-5.1); SODIUM LEVEL 140 MMOL/L (136-145)
[2024-10-28 08:45] VITALS: O2SAT 86
[2024-10-28 08:46] VITALS: O2SAT 90
[2024-10-28] MEDS: SYMBICORT 160/4.5MCG INHALER 6GM INH SCH (11:23)
[2024-10-28] MEDS: LEVALBUTEROL HFA 45MCG/ACT 15GM INHALER INH SCH (11:24)
[2024-10-28 12:00] VITALS: BP 136/65; TEMP 97.5; O2SAT 91
[2024-10-28 19:43] VITALS: BP 152/74; TEMP 97.9; O2SAT 91
[2024-10-29 03:44] VITALS: BP 152/73; TEMP 97.2; O2SAT 95
[2024-10-29 04:16] VITALS: BP 152/73; TEMP 97.2; O2SAT 95
[2024-10-29 05:49] LABS: BASO % 0.1 % (0.0-1.0); HEMATOCRIT 27.2 % (36.0-47.0); HEMOGLOBIN 9.2 g/dl (12.0-15.5); LYMPH # 0.1 10^3/uL (1.5-5.0); LYMPH % 0.3 % (24.0-44.0); MEAN CORPUSCULAR HEMOGLOBIN 30.2 pg (27.0-33.0); MEAN CORPUSCULAR HGB CONC 33.8 g/dl (32.0-36.5); MEAN CORPUSCULAR VOLUME 89.2 fl (80.0-96.0); MONO # 0.3 10^3/uL (0.0-0.8); MONO % 1.8 % (2.0-8.0); NEUTROPHILS # 14.4 10^3/uL (1.5-8.5); NEUTROPHILS % 96.6 % (36.0-66.0); PLATELET COUNT, AUTOMATED 100 10^3/uL (150-450); RED BLOOD COUNT 3.05 10^6/uL (4.00-5.40); WHITE BLOOD COUNT 14.9 10^3/uL (4.0-10.0)
[2024-10-29 06:52] LABS: CALCIUM LEVEL 8.4 MG/DL (8.3-10.6); CREATININE FOR GFR 1.09 MG/DL (0.55-1.30); GLOMERULAR FILTRATION RATE 52.5 (>39); MAGNESIUM LEVEL 2.4 MG/DL (1.8-2.4); POTASSIUM SERUM 3.5 MMOL/L (3.5-5.1)
[2024-10-29] MEDS: AUGMENTIN 875 MG TAB PO SCH (11:15)
[2024-10-29] MEDS: DOXYCYCLINE HYCLATE 100MG TABLET PO SCH (11:15)
[2024-10-29 12:00] VITALS: BP 149/69; TEMP 97.9; O2SAT 89
[2024-10-29 12:56] VITALS: O2SAT 85
[2024-10-29 12:58] VITALS: O2SAT 90
[2024-10-29 20:32] VITALS: BP 147/88; TEMP 97.9; O2SAT 91
[2024-10-30 03:35] VITALS: BP 147/87; TEMP 97.9; O2SAT 92
[2024-10-30 04:40] LABS: BASO % 0.1 % (0.0-1.0); HEMATOCRIT 24.4 % (36.0-47.0); HEMOGLOBIN 8.1 g/dl (12.0-15.5); LYMPH # 0.1 10^3/uL (1.5-5.0); LYMPH % 0.6 % (24.0-44.0); MEAN CORPUSCULAR HEMOGLOBIN 29.5 pg (27.0-33.0); MEAN CORPUSCULAR HGB CONC 33.2 g/dl (32.0-36.5); MEAN CORPUSCULAR VOLUME 88.7 fl (80.0-96.0); MONO # 0.3 10^3/uL (0.0-0.8); MONO % 1.9 % (2.0-8.0); NEUTROPHILS # 13.9 10^3/uL (1.5-8.5); NEUTROPHILS % 96.3 % (36.0-66.0); RED BLOOD COUNT 2.75 10^6/uL (4.00-5.40); WHITE BLOOD COUNT 14.5 10^3/uL (4.0-10.0)
[2024-10-30 05:02] LABS: PLATELET COUNT, AUTOMATED 90 10^3/uL (150-450)
[2024-10-30 05:10] LABS: BLOOD UREA NITROGEN 38 MG/DL (9-23); CALCIUM LEVEL 8.4 MG/DL (8.3-10.6); CARBON DIOXIDE LEVEL 35 MMOL/L (20-31); CHLORIDE LEVEL 98 MMOL/L (98-107); CREATININE FOR GFR 0.92 MG/DL (0.55-1.30); GLOMERULAR FILTRATION RATE > 60.0 (>39); GLUCOSE, FASTING 86 MG/DL (74-106); POTASSIUM SERUM 3.3 MMOL/L (3.5-5.1); SODIUM LEVEL 140 MMOL/L (136-145)
[2024-10-30 09:30] VITALS: O2SAT 78
[2024-10-30 09:35] VITALS: O2SAT 90
[2024-10-30] MEDS: predniSONE 20 MG TAB PO SCH (09:48)
[2024-10-30] MEDS: IPRATROPIUM 0.5MG/ALBUTEROL 2.5MG INH SOL UD 3ML (DUONEB) NEB SCH (13:50)
[2024-10-30] MEDS: MORPHINE 10MG/0.5ML ORAL CONCENTRATE SOLUTION U/D SL SCH (14:00)
[2024-10-30] MEDS: TORSEMIDE 20 MG TAB PO SCH (15:58)
[2024-10-30] MEDS: predniSONE 20 MG TAB PO ONE (15:59)
[2024-10-30 20:00] VITALS: BP 145/82; TEMP 97.7; O2SAT 93
[2024-10-30 20:40] VITALS: BP 145/80; TEMP 97.5; O2SAT 93
[2024-10-31 04:00] VITALS: BP 144/80; TEMP 97.2; O2SAT 95
[2024-10-31] MEDS: MAALOX 30 ML SUSP *UDC PO PRN (11:58)
[2024-10-31] MEDS ORDERED: HYOSCYAMINE SULFATE 0.125 MG SUBL TABLET PO PRN (12:05)
[2024-10-31] MEDS: OMEPRAZOLE 20MG CAP PO SCH (13:15)
[2024-10-31] MEDS ORDERED: PILL CUTTER 1 EACH XX ONE (20:58)
[2024-11-01] MEDS: ATROPINE SULFATE 1% OPHTH SOLN 2ML BTL SL PRN (23:11)
[2024-11-02 09:00] VITALS: BP 121/78
[2024-11-02] MEDS: POLYVINYL ALCOHOL OPHTH SOLN 15ML (LIQUITEARS) OU PRN (09:05)
[2024-11-02] MEDS: COMBIVENT RESPIMAT 100-20MCG INHALER 4GM INH SCH (16:15)
[2024-11-03] MEDS ORDERED: MORPHINE 10MG/0.5ML ORAL CONCENTRATE SOLUTION U/D SL SCH (09:00)
[2024-11-03] MEDS: MORPHINE 10MG/0.5ML ORAL CONCENTRATE SOLUTION U/D SL PRN (09:27)
[2024-11-03] MEDS: LORazepam 1 MG TAB PO PRN (09:27)
[2024-11-03] MEDS ORDERED: MORPHINE 10MG/0.5ML ORAL CONCENTRATE SOLUTION U/D SL PRN (09:40)
[2024-11-03] MEDS: MORPHINE 10MG/0.5ML ORAL CONCENTRATE SOLUTION U/D SL SCH (14:21)
[2024-11-03] MEDS: SCOPOLAMINE 1MG TRANSDERMAL PATCH TOP SCH (14:21)
== END 2024-11-03 21:59 | disposition expired | DRG 177 ==
LOC: EDBD 16:45 → M ED 16:45 → M ED INP 22:28 → M ICU 10-23 00:29 → M MSPAV 10-27 23:36
PROVIDERS: ADMIT Family Medicine; ATTEND Student in an Organized Health Care Education/Training Program
PROC: 30233N1 Transfusion of Nonautologous Red Blood Cells into Peripheral Vein, Percutaneous Approach (ICD-10-PCS; principal; 2024-10-22)
DX: U07.1 COVID-19 (principal); I50.23 Acute on chronic systolic (congestive) heart failure; J15.9 Unspecified bacterial pneumonia; I21.4 Non-ST elevation (NSTEMI) myocardial infarction; G92.8 Other toxic encephalopathy; K31.811 Angiodysplasia of stomach and duodenum with bleeding; J96.00 Acute respiratory failure, unspecified whether with hypoxia or hypercapnia; J44.0 Chronic obstructive pulmonary disease with (acute) lower respiratory infection; C34.91 Malignant neoplasm of unspecified part of right bronchus or lung; J98.11 Atelectasis; M48.54XA Collapsed vertebra, not elsewhere classified, thoracic region, initial encounter for fracture; M48.56XA Collapsed vertebra, not elsewhere classified, lumbar region, initial encounter for fracture; J44.1 Chronic obstructive pulmonary disease with (acute) exacerbation; I27.20 Pulmonary hypertension, unspecified; I35.0 Nonrheumatic aortic (valve) stenosis; K57.90 Diverticulosis of intestine, part unspecified, without perforation or abscess without bleeding; Z95.2 Presence of prosthetic heart valve; I20.9 Angina pectoris, unspecified; D50.0 Iron deficiency anemia secondary to blood loss (chronic); G89.3 Neoplasm related pain (acute) (chronic); Z79.52 Long term (current) use of systemic steroids; I11.0 Hypertensive heart disease with heart failure; I65.23 Occlusion and stenosis of bilateral carotid arteries; M81.0 Age-related osteoporosis without current pathological fracture; Z66 Do not resuscitate; Z79.899 Other long term (current) drug therapy; Z51.5 Encounter for palliative care